=== PATIENT | female | born 1965 | race American Indian/Alaskan Native ===

== ENCOUNTER 2016-07-14 11:38 | Emergency (ER) | payer OTHER ==
[2016-07-14] MEDS ORDERED: Sodium Chloride 0.9% 1,000 ML IV STA (11:56)
[2016-07-14] MEDS ORDERED: oxyCODONE 30 mg Immediate Release Tab PO STA (11:56)
[2016-07-14] MEDS ORDERED: HYDROmorphone 1 mg/ml ISec IVP STA (11:56)
[2016-07-14] MEDS ORDERED: Levalbuterol 1.25 MG/3 ML Inhal Soln UD IH STA (11:57)
[2016-07-14] MEDS ORDERED: guaiFENesin 200 mg/10 ml Syrup UD PO STA (11:57)
[2016-07-14] MEDS ORDERED: Ipratropium 0.02% Inhal Soln (0.5 mg/2.5 ml) UD IH STA (11:57)
[2016-07-14 12:04] VITALS: TEMP 98.9
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
[2016-07-14 12:17] LABS: ADD MANUAL DIFF? NO
[2016-07-14 12:22] LABS: BASO # 0.02 K/mm3 (0.0-2.0); BASO % 0.6 % (0.0-3.0); EOS # 0.1 (0.0-0.7); EOS % 2.9 % (1.5-5.0); GRAN # 1.61 (1.4-6.5); GRAN % 52.2 % (50.0-68.0); HEMATOCRIT 44.3 % (36.0-48.0); LYMPH # 1.1 (1.2-3.4); LYMPH % 34.3 % (22.0-35.0); MEAN CORPUSCULAR HEMOGLOBIN 30.5 pg (25.0-35.0); MEAN CORPUSCULAR HGB CONC 33.9 g/dl (31.0-37.0); MEAN PLATELET VOLUME 9.2 fl (7.0-11.0); MONO # 0.3 (0.1-0.6); PLATELET COUNT 241 10^3/uL (120.0-450.0); WHITE BLOOD COUNT 3.1 10^3/ul (4.5-11.0)
[2016-07-14 12:34] LABS: INR 2.1 (0.93-1.08); PARTIAL THROMBOPLASTIN TIME 35.9 Seconds (23.7-30.8)
[2016-07-14 12:39] LABS: ALB/GLOB RATIO 1.2 (1.1-1.8); ALKALINE PHOSPHATASE 68 U/L (38-133); ALT/SGPT 26 U/L (7-56); AST/SGOT 31 U/L (15-39); BILIRUBIN,TOTAL 0.4 mg/dL (0.2-1.3); BLOOD UREA NITROGEN 10 mg/dL (7-21); CALCIUM 9.3 mg/dL (8.4-10.5); CARBON DIOXIDE 32 mmol/L (21-33); CHLORIDE 104 mmol/L (98-107); GFR AFRICAN-AMERICAN > 60; GLUCOSE,RANDOM 81 mg/dL (70-110); LIPASE 52 U/L (23-300); POTASSIUM 4.6 mmol/L (3.6-5.0); SODIUM 144 mmol/L (132-148); TOTAL PROTEIN 7.3 g/dL (5.8-8.3)
[2016-07-14 12:43] LABS: URINE APPEARANCE CLEAR (CLEAR); URINE BILIRUBIN NEGATIVE (NEGATIVE); URINE BLOOD SMALL (NEGATIVE); URINE COLOR YELLOW (YELLOW); URINE GLUCOSE (UA) NEGATIVE (NEGATIVE); URINE KETONE NEGATIVE (NEGATIVE); URINE LEUKOCYTE ESTERASE NEGATIVE Leu/uL (NEGATIVE); URINE PROTEIN NEGATIVE mg/dL (<30 mg/dL); URINE UROBILINOGEN 0.2 E.U./dL (<1 E.U./dL)
[2016-07-14] MEDS ORDERED: DiphenhydrAMINE 50 mg/ml Inj IVP STA (12:49)
[2016-07-14 12:54] LABS: TROPONIN I < 0.01 ng/mL
[2016-07-14 13:04] LABS: URINE BACTERIA TRACE (NEG); URINE EPITHELIAL CELLS 0 - 2 /hpf (0-5); URINE WBC 0 - 2 /hpf (0-6)
[2016-07-14 13:50] VITALS: BMI 22.1
--- NOTE | 2016-07-14 14:22 | RAD ---
PROCEDURE: CHEST RADIOGRAPH, 1 VIEW HISTORY: R side chest pain COMPARISON: 05/18/2016 FINDINGS: LUNGS: No infiltrate. Linear pleural-based scar with tenting of the right hemidiaphragm unchanged from prior examination. PLEURA: No pneumothorax or pleural fluid seen. CARDIOVASCULAR: Left subclavian central venous port. Normal heart size. OSSEOUS STRUCTURES: No significant abnormalities. VISUALIZED UPPER ABDOMEN: Normal. OTHER FINDINGS: None. IMPRESSION: No active disease.
--- NOTE | 2016-07-14 14:33 | CT ---
PROCEDURE: CT Chest with contrast (Pulmonary Angiogram) HISTORY: R side cp radiating to the back; r/o PE and dissection. COMPARISON: Comparison is made to the previous study dated 08/12/2015 TECHNIQUE: Axial computed tomography images were obtained of the chest in the pulmonary arterial phase of enhancement. Coronal and sagittal reformatted images were created and reviewed. Intravenous contrast dose: 150 mL of Omnipaque 350 Radiation dose: Total exam DLP = 1635.29 mGy-cm. FINDINGS: PULMONARY ARTERIES: The main pulmonary artery is mildly enlarged. . No pulmonary embolism. AORTA: No acute findings. No thoracic aortic aneurysm. LUNGS: Moderate to mildly severe predominant upper lobe paraseptal emphysema is again noted. No evidence of pneumonia or mass lesion in the lungs. Reticular opacities at the lung apices likely scar tissue PLEURAL SPACES: Unremarkable. No effusion or pneuomothorax. HEART: The heart is mildly enlarged. No evidence of pericardial effusion. LYMPH NODES: No lymphadenopathy. BONES, CHEST WALL: Unremarkable. No fracture or destructive lesion OTHER FINDINGS: Unremarkable. IMPRESSION: No evidence of acute pathology in the chest . No pulmonary embolus. Moderate to mildly severe emphysema and predominant in the upper lobes again seen. No evidence of aortic dissection in the chest. Mildly dilated distal esophagus demonstrate mild wall thickening. Correlate clinically for esophagitis. CT of the abdomen and pelvis with contrast. Clinical history: Right-sided chest pain radiating to the back evaluate for aortic dissection. Comparison is made to the previous study dated 08/12/2015. Findings: The abdominal aorta is normal in caliber and shape. No evidence of aneurysm or dissection. No evidence of mass lesion or acute pathology in the liver, spleen, pancreas and adrenal glands. No evidence of cholecystitis. The kidneys enhance symmetrically without evidence of hydronephrosis. No evidence of free fluid or free air or bowel obstruction. No evidence of significant lymphadenopathy in the abdomen and pelvis. The iliac arteries are normal in caliber. The urinary bladder is grossly unremarkable. The uterus is heterogeneous slightly prominent in size. No evidence of acute pathology in the osseous structures. Impression: No evidence of abdominal aortic aneurysm or dissection. No CT evidence of acute pathology in the abdomen and pelvis.
[2016-07-14 16:22] VITALS: BP 133/85; PULSE 72; RESP 16; O2SAT 98
--- NOTE | 2016-07-15 09:59 | CARD ---
APPROVED REPORT EKG Measurement Heart [id number] <Conclusion> Normal sinus rhythm Normal ECG No change
== END 2016-07-14 16:22 | disposition home or self-care (01) ==
LOC: ED 11:38
DX: F14.10 Cocaine abuse, uncomplicated (principal); R07.9 Chest pain, unspecified; G89.29 Other chronic pain
CPT/HCPCS: 71010; 71270; 74175; 80053; 80324; 80345; 80346; 80349; 80353; 80358; 80361; 81001; 82550; 83615; 83690; 83735; 83880; 83992; 84484; 85025; 85610; 85730; 93005; 96361; 96374; 96375; 99284; J1170; J1200; J2060; J2405; J2930; J7040; Q9967

== ENCOUNTER 2016-07-22 16:48 | Emergency (ER) | payer OTHER ==
[2016-07-22 16:54] VITALS: BMI 33.0
[2016-07-22] MEDS ORDERED: DiphenhydrAMINE 50 mg/ml Inj IVP ONE ×2 (17:01→20:17)
[2016-07-22] MEDS ORDERED: HYDROmorphone 2 mg/ml ISec IVP STA (17:01)
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
[2016-07-22 17:04] VITALS: TEMP 98.2
[2016-07-22] MEDS ORDERED: Albuterol-Ipratrop 3 mg / 0.5 (3 ml) UD IH STA (17:04)
[2016-07-22 17:48] LABS: ADD MANUAL DIFF? NO
[2016-07-22 17:58] LABS: BASO # 0.03 [, K/mm3] (0.0-2.0); BASO % 0.9 % (0.0-3.0); EOS # 0.1 (0.0-0.7); EOS % 1.7 % (1.5-5.0); GRAN # 1.78 (1.4-6.5); GRAN % 50.9 % (50.0-68.0); HEMATOCRIT 41.2 % (36.0-48.0); LYMPH # 1.4 (1.2-3.4); LYMPH % 39.4 % (22.0-35.0); MEAN CELL VOLUME 89.4 fL (80.0-105.0); MEAN CORPUSCULAR HEMOGLOBIN 29.7 pg (25.0-35.0); MEAN CORPUSCULAR HGB CONC 33.3 g/dl (31.0-37.0); MEAN PLATELET VOLUME 9.5 fl (7.0-11.0); MONO # 0.3 (0.1-0.6); MONO % 7.1 % (1.0-6.0); PLATELET COUNT 210 [, 10^3/uL] (120.0-450.0); RED CELL DISTRIBUTION WIDTH 13.8 % (11.5-14.5); WHITE BLOOD COUNT 3.5 [, 10^3/ul] (4.5-11.0)
[2016-07-22 18:06] LABS: INR 1.97 (0.93-1.08)
[2016-07-22 18:09] LABS: ALB/GLOB RATIO 1.3 (1.1-1.8); ALKALINE PHOSPHATASE 74 U/L (38-133); ALT/SGPT 41 U/L (7-56); AST/SGOT 32 U/L (15-39); BILIRUBIN,TOTAL 0.6 mg/dL (0.2-1.3); BLOOD UREA NITROGEN 10 mg/dL (7-21); CALCIUM 8.9 mg/dL (8.4-10.5); CARBON DIOXIDE 27 mmol/L (21-33); CHLORIDE 103 mmol/L (98-107); GFR AFRICAN-AMERICAN > 60; GLUCOSE,RANDOM 98 mg/dL (70-110); POTASSIUM 3.6 mmol/L (3.6-5.0); SODIUM 140 mmol/L (132-148); TOTAL PROTEIN 6.8 g/dL (5.8-8.3)
[2016-07-22 18:21] LABS: TROPONIN I < 0.01 ng/mL
[2016-07-22] MEDS ORDERED: HYDROmorphone 1 mg/ml ISec IVP STA (19:55)
[2016-07-22 20:17] VITALS: PULSE 94
[2016-07-22 20:41] VITALS: BP 131/79; RESP 16; O2SAT 100
[2016-07-22 20:47] LABS: URINE BILIRUBIN NEGATIVE (NEGATIVE); URINE BLOOD TRACE-INTACT (NEGATIVE); URINE GLUCOSE (UA) NEGATIVE (NEGATIVE); URINE KETONE NEGATIVE (NEGATIVE); URINE LEUKOCYTE ESTERASE NEGATIVE Leu/uL (NEGATIVE); URINE PROTEIN NEGATIVE mg/dL (<30 mg/dL); URINE UROBILINOGEN 0.2 E.U./dL (<1 E.U./dL)
[2016-07-22 20:51] LABS: URINE APPEARANCE CLEAR (CLEAR); URINE COLOR YELLOW (YELLOW)
[2016-07-22 20:55] LABS: URINE BACTERIA FEW (NEG); URINE WBC 0 - 2 /hpf (0-6)
--- NOTE | 2016-07-23 09:12 | RAD ---
HISTORY: Shortness of breath COMPARISON: 07/14/2016. FINDINGS: The left MediPort terminates in the SVC. LUNGS: There is low lung volume on the right and chronic scarring in the right lower lobe with tenting of the right hemidiaphragm. The left lung is clear. PLEURA: No significant pleural effusion identified, no pneumothorax apparent. CARDIOVASCULAR: Normal. OSSEOUS STRUCTURES: No significant abnormalities. VISUALIZED UPPER ABDOMEN: Normal. OTHER FINDINGS: None. IMPRESSION: Chronic scarring in the right lower lobe and low lung volume on the right. Clear left lung.
--- NOTE | 2016-07-23 15:01 | CARD ---
APPROVED REPORT EKG Measurement Heart [id number] <Conclusion> Normal sinus rhythm Normal ECG
== END 2016-07-22 20:57 | disposition left against medical advice (07) ==
LOC: ED 16:48
DX: J44.1 Chronic obstructive pulmonary disease with (acute) exacerbation (principal); R07.9 Chest pain, unspecified; I10 Essential (primary) hypertension; Z85.118 Personal history of other malignant neoplasm of bronchus and lung; Z72.0 Tobacco use
CPT/HCPCS: 71010; 80053; 81001; 82550; 83615; 83880; 84484; 85025; 85610; 85730; 87040; 87086; 93005; 94640; 96374; 96375; 96376; 99285; J1170; J1200

== ENCOUNTER 2016-07-24 13:40 | Inpatient (IN) | payer OTHER ==
[2016-07-24] MEDS ORDERED: Morphine 4 mg/ml ISec IVP STA (13:47)
[2016-07-24] MEDS ORDERED: Albuterol-Ipratrop 3 mg / 0.5 (3 ml) UD ONE (13:47)
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
[2016-07-24 13:50] VITALS: BMI 33.1
[2016-07-24] MEDS: Albuterol-Ipratrop 3 mg / 0.5 (3 ml) UD IH SCH ×3 (14:00→20:00)
[2016-07-24 14:08] LABS: ADD MANUAL DIFF? NO
--- NOTE | 2016-07-24 14:25 | RAD ---
HISTORY: cough r/o pna COMPARISON: 07/22/2016 FINDINGS: The left subclavian line terminates in the SVC. LUNGS: The lungs are hyperinflated and there is peribronchial thickening with chronic changes in both lungs. Unchanged right lower lobe. There is no focal consolidation. PLEURA: No significant pleural effusion identified, no pneumothorax apparent. CARDIOVASCULAR: Normal. OSSEOUS STRUCTURES: No significant abnormalities. VISUALIZED UPPER ABDOMEN: Normal. OTHER FINDINGS: None. IMPRESSION: No active pulmonary disease. COPD.
[2016-07-24] MEDS ORDERED: Magnesium Sulfate 2 GM in Sodium Chloride 0.9% 100 ML IVPB ONE (14:26)
[2016-07-24 14:30] LABS: BASO # 0.01 K/mm3 (0.0-2.0); BASO % 0.2 % (0.0-3.0); EOS % 0.5 % (1.5-5.0); GRAN # 4.31 (1.4-6.5); GRAN % 68.6 % (50.0-68.0); HEMATOCRIT 41.3 % (36.0-48.0); LYMPH # 1.5 (1.2-3.4); LYMPH % 23.9 % (22.0-35.0); MEAN CELL VOLUME 89.8 fL (80.0-105.0); MEAN CORPUSCULAR HEMOGLOBIN 30.2 pg (25.0-35.0); MEAN CORPUSCULAR HGB CONC 33.7 g/dl (31.0-37.0); MEAN PLATELET VOLUME 9.5 fl (7.0-11.0); MONO # 0.4 (0.1-0.6); MONO % 6.8 % (1.0-6.0); PLATELET COUNT 242 10^3/uL (120.0-450.0); RED CELL DISTRIBUTION WIDTH 14.2 % (11.5-14.5); WHITE BLOOD COUNT 6.3 10^3/ul (4.5-11.0)
[2016-07-24 14:31] LABS: BLOOD UREA NITROGEN 14 mg/dL (7-21); CALCIUM 9.3 mg/dL (8.4-10.5); CARBON DIOXIDE 24 mmol/L (21-33); CHLORIDE 103 mmol/L (98-107); GFR AFRICAN-AMERICAN > 60; GLUCOSE,RANDOM 60 mg/dL (70-110); POTASSIUM 3.7 mmol/L (3.6-5.0); SODIUM 141 mmol/L (132-148)
[2016-07-24] MEDS ORDERED: HYDROmorphone 1 mg/ml ISec IVP STA (14:40)
[2016-07-24] MEDS ORDERED: Albuterol 0.083% Inhal Sol (2.5 mg/3 mL) UD IH STA (16:03)
[2016-07-24 16:37] LABS: INR 2.68 (0.93-1.08); PARTIAL THROMBOPLASTIN TIME 38.3 Seconds (23.7-30.8)
[2016-07-24] MEDS ORDERED: Albuterol-Ipratrop 3 mg / 0.5 (3 ml) UD IH PRN (16:54)
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
[2016-07-24] MEDS: HYDROmorphone 1 mg/ml ISec IVP PRN ×2 (17:45→21:26)
[2016-07-24] MEDS: Divalproex 250 mg ER (ONCE DAILY formulation) PO SCH (19:18)
[2016-07-24] MEDS: guaiFENesin 100 mg/5 ml Syrup UD PO PRN (19:20)
--- NOTE | 2016-07-24 22:45 | CP.PCM.PCO ---
Addendum Addendum: 07/24/16 22:28 Elian Shafer D.O. PGY-1, Internal Medicine Resident, Night Float Received page from Lauren VELASQUEZ at about 1010pm that patient was complaining of right arm pain, tingling, and numbness. Patient was seen and examined at bedside. Patient has a hx of lung cancer s/p right lobectomy done about 2 years and patient states that ever since then she has been having neuropathic pain over the skin of her right chest wall. Patient states that then about 2 months ago she started to notice that she also had some numbness and tingling of the right arm. Patient states the numbness/ tingling/pain is 10/10 at its worst, constant, varies at times, somewhat related to position but not always improved by changes, not worsened by anything that she's noticed, non-radiating, involves the entire arm and not a particular area/dermatome, and not associated with other symptoms. Patient admits that she has not had great follow up with radiation oncology or with hem/ onc about her now metastatic disease with known mediastinal adenopathy. Chart and images were reviewed by myself. Patient is a well developed, obese female, in some distress but improved after conversation, RRR, +S1/S2, no M/R/G, mild wheezing, decreased BL lower lung field breath sounds, NC, AT, abd S/NT/ND/+BSx4, the right chest wall shows post surgical well healed lobectomy scar, the skin is very tender to touch, the right arm is not but patient describes tingling and numbness along later, medical and posterior aspects, from shoulder down to fingers, negative Tinels, +2 RA pulses, +2 brachial pulses, good cap refill, good alternative dispute resolution mediator/BI/TRI/DELT strength, no focal motor deficits, no dysarthria, no dysmetria, no dysdiadochokinesia, or any other signs of a possible other neurologic or cardiac etiology. Of note, patient uses cocaine and has had formication in the past and the sensation she has now is different. Patient's condition was discussed with her at great length, and given her symptoms and their chronicity it is likely that she is suffering from neuropathic pain and would benefit from gabapentin. Patient states that she was on gabapentin for some time but only was up to "like 1000mg a day." I educated the patient on gabapentin, it's mechanism, and how it works for neuropathic pain , and how this is the likely source of her symptoms now, although we will also rule out other etiologies, and how these will be discussed with the day team for further evaluation. I also educated the patient about how she may just have needed higher doses in order for it to be efficacious for her. Patient verbalized both understanding of the above and agreement to start on gabapentin 300mg PO TID, with the first dose now, with the plan to work her up to the appropriate dose that will help with her pain. The above will be discussed with the day team.
[2016-07-25] MEDS: Albuterol-Ipratrop 3 mg / 0.5 (3 ml) UD IH SCH ×6 (00:20→20:19)
[2016-07-25] MEDS: HYDROmorphone 1 mg/ml ISec IVP PRN ×6 (01:47→23:48)
[2016-07-25] MEDS: guaiFENesin 100 mg/5 ml Syrup UD PO PRN ×4 (01:47→17:20)
[2016-07-25 07:12] LABS: ADD MANUAL DIFF? NO
[2016-07-25 07:16] LABS: GRAN # 8.03 (1.4-6.5); GRAN % 90.6 % (50.0-68.0); HEMATOCRIT 37.6 % (36.0-48.0); LYMPH # 0.6 (1.2-3.4); LYMPH % 6.5 % (22.0-35.0); MEAN CELL VOLUME 89.5 fL (80.0-105.0); MEAN CORPUSCULAR HGB CONC 33.5 g/dl (31.0-37.0); MEAN PLATELET VOLUME 9.4 fl (7.0-11.0); MONO # 0.3 (0.1-0.6); MONO % 2.9 % (1.0-6.0); PLATELET COUNT 248 10^3/uL (120.0-450.0); RED CELL DISTRIBUTION WIDTH 14.1 % (11.5-14.5); WHITE BLOOD COUNT 8.9 10^3/ul (4.5-11.0)
[2016-07-25 07:25] LABS: INR 2.56 (0.93-1.08)
[2016-07-25 08:27] LABS: ALB/GLOB RATIO 1.2 (1.1-1.8); ALKALINE PHOSPHATASE 58 U/L (38-133); ALT/SGPT 58 U/L (7-56); AST/SGOT 36 U/L (15-39); BILIRUBIN,TOTAL 0.4 mg/dL (0.2-1.3); BLOOD UREA NITROGEN 13 mg/dL (7-21); CALCIUM 9.1 mg/dL (8.4-10.5); CARBON DIOXIDE 27 mmol/L (21-33); CHLORIDE 103 mmol/L (95-110); GFR AFRICAN-AMERICAN > 60; GLUCOSE,RANDOM 140 mg/dL (70-110); POTASSIUM 4.6 mmol/L (3.6-5.0); SODIUM 139 mmol/L (132-148); TOTAL PROTEIN 6.9 g/dL (5.8-8.3)
[2016-07-25] MEDS: Divalproex 250 mg ER (ONCE DAILY formulation) PO SCH ×2 (09:26→17:22)
[2016-07-25] MEDS ORDERED: Iodixanol 320 MG/ML 100 ML BOTTLE IV ONE (12:54)
[2016-07-25] MEDS: cefTRIAXone 1 gm 100 ML IVPB SCH (13:41)
[2016-07-25] MEDS: Azithromycin 500MG/NS 250ml 250 ML IVPB SCH (13:41)
--- NOTE | 2016-07-25 15:10 | CT ---
PROCEDURE: CT Chest with contrast (Pulmonary Angiogram) HISTORY: r/o PE COMPARISON: None available. TECHNIQUE: Axial computed tomography images were obtained of the chest in the pulmonary arterial phase of enhancement. Coronal and sagittal reformatted images were created and reviewed. Intravenous contrast dose: 100 cc of Visipaque Radiation dose: Total exam DLP = 742 mGy-cm. FINDINGS: PULMONARY ARTERIES: Unremarkable. No pulmonary embolism. AORTA: No acute findings. No thoracic aortic aneurysm. LUNGS: Emphysematous changes are seen in the left upper lobe. No evidence of infiltrate PLEURAL SPACES: Unremarkable. No effusion or pneuomothorax. HEART: Unremarkable. No cardiomegaly. No significant pericardial effusion. LYMPH NODES: No lymphadenopathy. BONES, CHEST WALL: Unremarkable. No fracture or destructive lesion OTHER FINDINGS: Unremarkable. IMPRESSION: Unremarkable CT pulmonary angiogram. No pulmonary embolus.
--- NOTE | 2016-07-25 15:20 | CON ---
DATE: 07/25/2016 This is a 51-year-old lady with history of right lung squamous cell cancer s/p resection, chemo and XRT with subsequent recurrence, patient is on warfarin for pulmonary embolism and has a history of COPD, coronary artery disease, and neuropathic pain, for which she is on Neurontin and opiates PRN, who presented this time for evaluation of shortness of breath. The patient reports that she is also coughing and produces some thick greenish sputum. The episodes of these complaints were waxing and waning over the past few months. However, a few days ago, they became much worse and culminated in her admission to [facility] telemetry floor. The patient also reported occasional cocaine abuse. She is also taking oxycodone on as needed basis for neuropathic pain. The patient denies nausea, vomiting, diarrhea, constipation or any sick contacts. It appears that the patient was in the Emergency Room about 2 days ago where she signed out AMA in order to be on time for the appointment with her pain management physician. She is unable to provide the name of the pain physician, however, states that his office is in [facility]. PAST MEDICAL HISTORY: Right lung squamous cell CA, pulmonary embolism, COPD, coronary artery disease. PAST SURGICAL HISTORY: Right lobectomy, tubal ligation. FAMILY HISTORY: Noncontributory. SOCIAL HISTORY: The patient is an ex-tobacco abuser. She smoked about a 3 packs a day for many, many years. She is using nicotine patch at this point. She also occasional an active cocaine abuser. Social alcohol abuse. She lives at home with . ALLERGIES: PENICILLIN AND ASPIRIN. REVIEW OF SYSTEMS: Review of 12 organ systems, other than mentioned in history of present illness, is negative. PHYSICAL EXAMINATION: VITAL SIGNS: Temperature 98.7, heart rate 90, blood pressure 101/65, respiratory rate 19, oxygen saturation 99% on 3 liters nasal cannula. HEAD AND NECK: Atraumatic. LUNGS: Decreased breath sounds bilaterally. HEART: Regular rate and rhythm. S1, S2 distant. ABDOMEN: Soft, nontender, nondistended. MUSCULOSKELETAL: There is reproducible pain all over chest and upper shoulders , back. No C/C/E. NEUROLOGIC: The patient moves all extremities spontaneously. SKIN: Moist. PSYCHIATRIC: The patient is alert and oriented x 3, in mild distress due to neuropathic pain. This pain is not new and patient has been suffering from it for many months now. LABORATORIES: WBC 8.9, hemoglobin 12.6, platelet count 248. Sodium 139, potassium 4.6, chloride 103, carbon dioxide 27, BUN 13, creatinine 0.8 down from 1, glucose 140. Troponin less than 0.01. Albumin 3.8. INR 2.56. U-tox screen positive for opiates and cocaine. EKG showed normal sinus rhythm without any specific ischemic changes. Chest x- ray showed no active pulmonary disease from emphysema, consistent with diagnosis of COPD. ASSESSMENT AND PLAN: This is a 51-year-old lady who presented with increased shortness of breath and cough, most likely secondary to chronic obstructive pulmonary disease exacerbation. The patient will be on antibiotics, inhaled corticosteroids, and anticholinergic inhalers. I will proceed with septic workup including blood and urine culture, procalcitonin. I will continue Neurontin for pain medication. The patient may benefit from pain MD hipolito. I would continue to target euvolemia, euglycemia, normothermia and oxygen saturation more than 90%. We will continue with deep venous thrombosis and gastrointestinal prophylaxis. Ld Henriquez MD cc: [id number] TT: 07/25/2016 15:18:58 Confirmation # [id number] Dictation # [id number] en MTDD
--- NOTE | 2016-07-25 15:45 | CARD ---
APPROVED REPORT EKG Measurement Heart [id number] VT [id number] <Conclusion> Normal sinus rhythm Normal ECG
--- NOTE | 2016-07-25 15:46 | CP.PCM.PN ---
<Aryan Perez - Last Filed: 07/25/16 15:55> Subjective - Date & Time of Evaluation Date of Evaluation: 07/25/16 Time of Evaluation: 07:30 - Subjective Subjective: Dr. Perez PGY 1 Hospital Note Patient seen and evaluated at bedside. She states that she continues to have SOB and a non-productive cough. She notes some musclular pain when she coughs. She denies any fever, chills, nausea, vomiting, diarrhea, or constipation. She complains of chronic back pain for which she sees a pain specialist. Objective - Vital Signs/Intake and Output Vital Signs (last 24 hours): Temp Pulse Resp BP Pulse Ox 98.7 F 90 19 101/65 99 07/25/16 12:00 07/25/16 12:00 07/25/16 12:00 07/25/16 12:00 07/25/16 05:29 Intake and Output: 07/25/16 07/25/16 06:59 18:59 Intake Total 1080 Output Total 1 Balance 1079 - Medications Medications: Current Medications Albuterol/Ipratropium (Duoneb 3 Mg/0.5 Mg (3 Ml) Ud) 3 ml IH Q2H PRN PRN Reason: Shortness of Breath Albuterol/Ipratropium (Duoneb 3 Mg/0.5 Mg (3 Ml) Ud) 3 ml IH [id number] [facility] Last Admin: 07/25/16 11:29 Dose: 3 ml Benzonatate (Tessalon Perles) 100 mg PO TID [facility] Last Admin: 07/25/16 13:40 Dose: 100 mg Divalproex Sodium (Depakote Er(Once Daily)) 250 mg PO BID [facility] PRN Reason: Protocol Last Admin: 07/25/16 09:26 Dose: 250 mg Gabapentin (Neurontin) 300 mg PO TID [facility] PRN Reason: Protocol Last Admin: 07/25/16 13:40 Dose: 300 mg Guaifenesin (Robitussin) 100 mg PO Q4H PRN PRN Reason: Cough Last Admin: 07/25/16 09:26 Dose: 100 mg Hydromorphone HCl (Dilaudid) 1 mg IVP Q4H PRN PRN Reason: Pain, severe (8-10) Last Admin: 07/25/16 13:48 Dose: 1 mg Azithromycin (Zithromax 500mg In Ns) 250 mls @ 167 mls/hr IVPB DAILY [facility] PRN Reason: Protocol Last Admin: 07/25/16 13:41 Dose: 167 mls/hr Ceftriaxone Sodium (Rocephin 1 Gram Ivpb) 100 mls @ 100 mls/hr IVPB DAILY [facility] PRN Reason: Protocol Last Admin: 07/25/16 13:41 Dose: 100 mls/hr Methylprednisolone (Solu-Medrol) 60 mg IVP Q12 [facility] Last Admin: 07/25/16 09:26 Dose: 60 mg Nicotine (Nicoderm Cq) 1 patch TD DAILY [facility] Last Admin: 07/25/16 09:26 Dose: 1 patch Ondansetron HCl (Zofran Inj) 4 mg IVP Q4H PRN PRN Reason: Nausea/Vomiting Pantoprazole Sodium (Protonix Inj) 40 mg IVP DAILY [facility] Last Admin: 07/25/16 09:27 Dose: 40 mg Risperidone 2 mg/ Risperidone (0.5 mg) 2.5 mg PO BID [facility] Warfarin Sodium (Coumadin) 10 mg PO 1800 [facility] PRN Reason: Protocol - Labs Labs: 07/25/16 06:45 07/25/16 06:45 PT 27.6 Seconds (9.9-11.8) H 07/25/16 06:45 INR 2.56 (0.93-1.08) H 07/25/16 06:45 APTT 38.3 Seconds (23.7-30.8) H 07/24/16 13:45 - Constitutional Appears: Non-toxic, No Acute Distress, Other (continually coughs while speaking) - Head Exam Head Exam: ATRAUMATIC, NORMOCEPHALIC - Eye Exam Eye Exam: EOMI, Normal appearance, PERRL Pupil Exam: NORMAL ACCOMODATION, PERRL - ENT Exam ENT Exam: Mucous Membranes Moist - Respiratory Exam Respiratory Exam: Wheezes (bilaterally), NORMAL BREATHING PATTERN. absent: Rales, Rhonchi Additional comments: non-productive cough while being interviewed - Cardiovascular Exam Cardiovascular Exam: REGULAR RHYTHM, +S1, +S2. absent: Gallop, Rubs, Murmur - GI/Abdominal Exam GI & Abdominal Exam: Soft, Normal Bowel Sounds. absent: Tenderness - Extremities Exam Extremities Exam: Normal Inspection. absent: Pedal Edema, Tenderness - Back Exam Back Exam: NORMAL INSPECTION. absent: rash noted, tenderness - Neurological Exam Neurological Exam: Alert, Awake, CN II-XII Intact, Oriented x3 - Psychiatric Exam Psychiatric exam: Normal Affect, Normal Mood - Skin Skin Exam: Dry, Intact, Normal Color, Warm Assessment and Plan - Assessment and Plan (Free Text) Assessment: 50yo F with PMHx including Right Lung CA - Squamous cell s/p right Lobectomy with recurrence on radiation, Hx of PE on Warfarin, COPD, Angina, Chronic pain on high dose opiates, drug abuse here for Shortness of breath and non- productive cough. Plan: 1. Dyspnea * In the setting of recent cocaine use * Hx of Squamous cell Lung cancer s/p right lobectomy with recurrence * likely COPD exacerbation * Pulmonology consulted, help appreciated * CXR - no acute disease * Troponin negative * CTA ordered showed emphysematous changes, no evidence of PE. * Continue Duonebs, Solumedrol 60mg q12, Robitussin * Started Zithromax and Rocephin * Started Tessolon perls * Supplemental O2 as needed 2. Hx of PE * Continue Coumadin * INR therapeutic at 2.56 * Daily INR checks 3. Chronic Back pain * Pain control with dilaudid * high dose oxycodone use at home: Oxycodone 30mg PO q4h prn * Started Gabapentin 4. Substance abuse * UA positive for cocaine and opiates * Reported last cocaine use 1 week ago * counseled on cessation 5. PPx * SCDs * Protonix * Zofran Assessment and plan discussed with attending physician. <Tammy Grey - Last Filed: 07/26/16 08:57> Objective - Vital Signs/Intake and Output Vital Signs (last 24 hours): Temp Pulse Resp BP Pulse Ox 97.6 F 79 18 154/94 H 98 07/26/16 00:01 07/26/16 06:00 07/26/16 00:01 07/26/16 00:01 07/26/16 00:01 Intake and Output: 07/26/16 07/26/16 06:59 18:59 Intake Total 900 Output Total 2100 Balance -1200 - Medications Medications: Current Medications Albuterol/Ipratropium (Duoneb 3 Mg/0.5 Mg (3 Ml) Ud) 3 ml IH Q2H PRN PRN Reason: Shortness of Breath Albuterol/Ipratropium (Duoneb 3 Mg/0.5 Mg (3 Ml) Ud) 3 ml IH [id number] [facility] Last Admin: 07/26/16 07:51 Dose: 3 ml Benzocaine/Menthol (Cepacol Sore Throat) 1 mica MT Q2H PRN PRN Reason: Sore Throat Benzonatate (Tessalon Perles) 100 mg PO TID [facility] Last Admin: 07/25/16 17:20 Dose: Not Given Divalproex Sodium (Depakote Er(Once Daily)) 250 mg PO BID [facility] PRN Reason: Protocol Last Admin: 07/25/16 17:22 Dose: 250 mg Gabapentin (Neurontin) 300 mg PO TID [facility] PRN Reason: Protocol Last Admin: 07/25/16 17:19 Dose: 300 mg Guaifenesin (Robitussin) 100 mg PO Q4H PRN PRN Reason: Cough Last Admin: 07/25/16 17:20 Dose: 100 mg Hydromorphone HCl (Dilaudid) 1 mg IVP Q4H PRN PRN Reason: Pain, severe (8-10) Last Admin: 07/26/16 05:16 Dose: 1 mg Azithromycin (Zithromax 500mg In Ns) 250 mls @ 167 mls/hr IVPB DAILY [facility] PRN Reason: Protocol Last Admin: 07/25/16 13:41 Dose: 167 mls/hr Ceftriaxone Sodium (Rocephin 1 Gram Ivpb) 100 mls @ 100 mls/hr IVPB DAILY [facility] PRN Reason: Protocol Last Admin: 07/25/16 13:41 Dose: 100 mls/hr Methylprednisolone (Solu-Medrol) 60 mg IVP Q12 [facility] Last Admin: 07/25/16 21:15 Dose: 60 mg Nicotine (Nicoderm Cq) 1 patch TD DAILY [facility] Last Admin: 07/25/16 09:26 Dose: 1 patch Ondansetron HCl (Zofran Inj) 4 mg IVP Q4H PRN PRN Reason: Nausea/Vomiting Pantoprazole Sodium (Protonix Ec Tab) 40 mg PO ACB [facility] Risperidone 2 mg/ Risperidone (0.5 mg) 2.5 mg PO BID [facility] Last Admin: 07/25/16 17:19 Dose: 2.5 mg Warfarin Sodium (Coumadin) 10 mg PO 1800 [facility] PRN Reason: Protocol Last Admin: 07/25/16 17:16 Dose: 10 mg - Labs Labs: 07/26/16 06:45 07/26/16 06:45 PT 27.6 Seconds (9.9-11.8) H 07/25/16 06:45 INR 2.56 (0.93-1.08) H 07/25/16 06:45 APTT 38.3 Seconds (23.7-30.8) H 07/24/16 13:45 Attending/Attestation - Attestation I have personally seen and examined this patient.: Yes I have fully participated in the care of the patient.: Yes I have reviewed all pertinent clinical information, including history, physical exam and plan: Yes Notes (Text): I have seen and examined the patient with the resident. This is 51 year old female with history of right sided lung cancer (SCC s/p right lobectomy with recurrence on RT), PE on coumadin, COPD,a ngina, chronic pain syndrome on high dose of opioids, polysubstance abuse (marijuana, cocaine) who got admitted for evaluation of COPD exacerbation. Will continue solumedrol, duonebs and add rocephin, zithro, tessalon perles and singulair. Will obtain pulm consult as well. CT chest is pending at this time. She has neuropathy so will continue gabapentin. Dr Tammy Grey
[2016-07-25] MEDS ORDERED: HYDROmorphone 0.5 mg/0.5 ml ISec IVP STA (20:40)
[2016-07-25] MEDS ORDERED: HYDROmorphone 1 mg/ml ISec IVP STA (20:55)
[2016-07-26] MEDS: Albuterol-Ipratrop 3 mg / 0.5 (3 ml) UD IH SCH ×6 (00:24→20:30)
[2016-07-26] MEDS: HYDROmorphone 1 mg/ml ISec IVP PRN ×4 (05:16→17:55)
[2016-07-26 06:55] LABS: ADD MANUAL DIFF? NO
[2016-07-26 07:13] LABS: GRAN # 8.38 (1.4-6.5); GRAN % 86.6 % (50.0-68.0); HEMATOCRIT 37.4 % (36.0-48.0); LYMPH # 0.7 (1.2-3.4); LYMPH % 7.6 % (22.0-35.0); MEAN CELL VOLUME 89.9 fL (80.0-105.0); MEAN CORPUSCULAR HEMOGLOBIN 29.8 pg (25.0-35.0); MEAN CORPUSCULAR HGB CONC 33.2 g/dl (31.0-37.0); MEAN PLATELET VOLUME 9.6 fl (7.0-11.0); MONO # 0.6 (0.1-0.6); MONO % 5.8 % (1.0-6.0); PLATELET COUNT 246 10^3/uL (120.0-450.0); WHITE BLOOD COUNT 9.7 10^3/ul (4.5-11.0)
[2016-07-26 07:16] LABS: ALB/GLOB RATIO 1.2 (1.1-1.8); ALKALINE PHOSPHATASE 56 U/L (38-133); ALT/SGPT 48 U/L (7-56); AST/SGOT 29 U/L (15-39); BILIRUBIN,TOTAL 0.5 mg/dL (0.2-1.3); BLOOD UREA NITROGEN 14 mg/dL (7-21); CALCIUM 9.3 mg/dL (8.4-10.5); CARBON DIOXIDE 31 mmol/L (21-33); CHLORIDE 101 mmol/L (98-107); GFR AFRICAN-AMERICAN > 60; GLUCOSE,RANDOM 112 mg/dL (70-110); POTASSIUM 4.2 mmol/L (3.6-5.0); SODIUM 140 mmol/L (132-148); TOTAL PROTEIN 6.5 g/dL (5.8-8.3)
[2016-07-26] MEDS: Pantoprazole 40 mg EC Tab PO SCH (09:44)
[2016-07-26] MEDS: cefTRIAXone 1 gm 100 ML IVPB SCH (09:44)
[2016-07-26 10:28] LABS: INR 1.88 (0.93-1.08)
[2016-07-26] MEDS: Divalproex 250 mg ER (ONCE DAILY formulation) PO SCH ×2 (10:53→19:05)
[2016-07-26] MEDS: Azithromycin 500MG/NS 250ml 250 ML IVPB SCH (10:54)
[2016-07-26] MEDS: guaiFENesin 100 mg/5 ml Syrup UD PO PRN ×3 (10:55→17:53)
[2016-07-26] MEDS: Benzocaine/Menthol (Cepacol) Lozenge MT PRN (13:50)
--- NOTE | 2016-07-26 14:10 | CP.PCM.PN ---
Subjective - Date & Time of Evaluation Date of Evaluation: 07/26/16 Time of Evaluation: 14:00 - Subjective Subjective: No acute events overnight Continues to have some coughing without productive sputum On nebulizers and steroids Objective - Vital Signs/Intake and Output Vital Signs (last 24 hours): Temp Pulse Resp BP Pulse Ox 99.7 F H 85 17 136/75 100 07/26/16 06:00 07/26/16 06:00 07/26/16 06:00 07/26/16 06:00 07/26/16 06:00 Intake and Output: 07/26/16 07/26/16 06:59 18:59 Intake Total 900 Output Total 2100 Balance -1200 - Medications Medications: Current Medications Albuterol/Ipratropium (Duoneb 3 Mg/0.5 Mg (3 Ml) Ud) 3 ml IH Q2H PRN PRN Reason: Shortness of Breath Albuterol/Ipratropium (Duoneb 3 Mg/0.5 Mg (3 Ml) Ud) 3 ml IH [id number] [facility] Last Admin: 07/26/16 11:26 Dose: 3 ml Benzocaine/Menthol (Cepacol Sore Throat) 1 mica MT Q2H PRN PRN Reason: Sore Throat Last Admin: 07/26/16 13:50 Dose: 1 mica Benzonatate (Tessalon Perles) 100 mg PO TID [facility] Last Admin: 07/26/16 13:49 Dose: 100 mg Divalproex Sodium (Depakote Er(Once Daily)) 250 mg PO BID [facility] PRN Reason: Protocol Last Admin: 07/26/16 10:53 Dose: 250 mg Gabapentin (Neurontin) 300 mg PO TID [facility] PRN Reason: Protocol Last Admin: 07/26/16 13:49 Dose: 300 mg Guaifenesin (Robitussin) 100 mg PO Q4H PRN PRN Reason: Cough Last Admin: 07/26/16 13:48 Dose: 100 mg Hydromorphone HCl (Dilaudid) 1 mg IVP Q4H PRN PRN Reason: Pain, severe (8-10) Last Admin: 07/26/16 13:49 Dose: 1 mg Azithromycin (Zithromax 500mg In Ns) 250 mls @ 167 mls/hr IVPB DAILY [facility] PRN Reason: Protocol Last Admin: 07/26/16 10:54 Dose: 167 mls/hr Ceftriaxone Sodium (Rocephin 1 Gram Ivpb) 100 mls @ 100 mls/hr IVPB DAILY [facility] PRN Reason: Protocol Last Admin: 07/26/16 09:44 Dose: 100 mls/hr Methylprednisolone (Solu-Medrol) 40 mg IVP Q12 [facility] Nicotine (Nicoderm Cq) 1 patch TD DAILY [facility] Last Admin: 07/26/16 09:52 Dose: 1 patch Ondansetron HCl (Zofran Inj) 4 mg IVP Q4H PRN PRN Reason: Nausea/Vomiting Pantoprazole Sodium (Protonix Ec Tab) 40 mg PO ACB [facility] Last Admin: 07/26/16 09:44 Dose: 40 mg Risperidone 2 mg/ Risperidone (0.5 mg) 2.5 mg PO BID [facility] Last Admin: 07/26/16 10:54 Dose: 2.5 mg Warfarin Sodium (Coumadin) 10 mg PO 1800 [facility] PRN Reason: Protocol Last Admin: 07/25/16 17:16 Dose: 10 mg - Labs Labs: 07/26/16 06:45 07/26/16 06:45 PT 20.3 Seconds (9.9-11.8) H 07/26/16 10:08 INR 1.88 (0.93-1.08) H 07/26/16 10:08 APTT 38.3 Seconds (23.7-30.8) H 07/24/16 13:45 - Constitutional Appears: No Acute Distress - Head Exam Head Exam: ATRAUMATIC, NORMAL INSPECTION - Eye Exam Eye Exam: EOMI, Normal appearance - ENT Exam ENT Exam: Mucous Membranes Moist - Neck Exam Neck Exam: Full ROM, Normal Inspection - Respiratory Exam Respiratory Exam: Decreased Breath Sounds (Decreased breath sounds at bases ), Clear to Ausculation Bilateral - Cardiovascular Exam Cardiovascular Exam: REGULAR RHYTHM - GI/Abdominal Exam GI & Abdominal Exam: Normal Bowel Sounds - Exam Exam: NORMAL INSPECTION - Extremities Exam Extremities Exam: Full ROM - Back Exam Back Exam: NORMAL INSPECTION - Neurological Exam Neurological Exam: Alert, CN II-XII Intact Assessment and Plan - Assessment and Plan (Free Text) Assessment: 51 y/o F / w/ 60 pk year smoking hx w/ acute COPD exacerbation . secondary to cocaine . Continue empiric abx treatment F/u sputum cx if any COntinue inhalers, ICS, BD and steroids PT/OT PFT needed in 2-3 weeks may need 6 min walk test before d/c
--- NOTE | 2016-07-26 15:30 | CP.PCM.PN ---
<Aryan Perez - Last Filed: 07/26/16 15:24> Subjective - Date & Time of Evaluation Date of Evaluation: 07/26/16 Time of Evaluation: 07:30 - Subjective Subjective: Dr. Perez PGY 1 Hospitalist Note Patient seen and evaluated at bedside. She was resting comfortably in bed. She continues to complain of mild SOB and non-productive cough. She denies any hemoptysis but has mild chest pain along the ribs and back which is worse with cough. She states the tingling in her arm has not fully diminished since starting Gabapentin yesterday. She states she will never use cocaine again and will refrain from smoking as was made aware that it worsens COPD. A 12 point review of systems was performed and negative except where indicated above. Objective - Vital Signs/Intake and Output Vital Signs (last 24 hours): Temp Pulse Resp BP Pulse Ox 98.5 F 98 H 17 136/75 100 07/26/16 12:00 07/26/16 10:00 07/26/16 06:00 07/26/16 06:00 07/26/16 06:00 Intake and Output: 07/26/16 07/26/16 06:59 18:59 Intake Total 900 920 Output Total 2100 Balance -1200 920 - Medications Medications: Current Medications Albuterol/Ipratropium (Duoneb 3 Mg/0.5 Mg (3 Ml) Ud) 3 ml IH Q2H PRN PRN Reason: Shortness of Breath Albuterol/Ipratropium (Duoneb 3 Mg/0.5 Mg (3 Ml) Ud) 3 ml IH [id number] [facility] Last Admin: 07/26/16 11:26 Dose: 3 ml Benzocaine/Menthol (Cepacol Sore Throat) 1 mica MT Q2H PRN PRN Reason: Sore Throat Last Admin: 07/26/16 13:50 Dose: 1 mica Benzonatate (Tessalon Perles) 100 mg PO TID [facility] Last Admin: 07/26/16 13:49 Dose: 100 mg Divalproex Sodium (Depakote Er(Once Daily)) 250 mg PO BID [facility] PRN Reason: Protocol Last Admin: 07/26/16 10:53 Dose: 250 mg Gabapentin (Neurontin) 300 mg PO TID [facility] PRN Reason: Protocol Last Admin: 07/26/16 13:49 Dose: 300 mg Guaifenesin (Robitussin) 100 mg PO Q4H PRN PRN Reason: Cough Last Admin: 07/26/16 13:48 Dose: 100 mg Hydromorphone HCl (Dilaudid) 1 mg IVP Q4H PRN PRN Reason: Pain, severe (8-10) Last Admin: 07/26/16 13:49 Dose: 1 mg Azithromycin (Zithromax 500mg In Ns) 250 mls @ 167 mls/hr IVPB DAILY [facility] PRN Reason: Protocol Last Admin: 07/26/16 10:54 Dose: 167 mls/hr Ceftriaxone Sodium (Rocephin 1 Gram Ivpb) 100 mls @ 100 mls/hr IVPB DAILY [facility] PRN Reason: Protocol Last Admin: 07/26/16 09:44 Dose: 100 mls/hr Methylprednisolone (Solu-Medrol) 40 mg IVP Q12 [facility] Nicotine (Nicoderm Cq) 1 patch TD DAILY [facility] Last Admin: 07/26/16 09:52 Dose: 1 patch Ondansetron HCl (Zofran Inj) 4 mg IVP Q4H PRN PRN Reason: Nausea/Vomiting Pantoprazole Sodium (Protonix Ec Tab) 40 mg PO ACB [facility] Last Admin: 07/26/16 09:44 Dose: 40 mg Risperidone 2 mg/ Risperidone (0.5 mg) 2.5 mg PO BID [facility] Last Admin: 07/26/16 10:54 Dose: 2.5 mg Warfarin Sodium (Coumadin) 10 mg PO 1800 [facility] PRN Reason: Protocol Last Admin: 07/25/16 17:16 Dose: 10 mg - Labs Labs: 07/26/16 06:45 07/26/16 06:45 PT 20.3 Seconds (9.9-11.8) H 07/26/16 10:08 INR 1.88 (0.93-1.08) H 07/26/16 10:08 APTT 38.3 Seconds (23.7-30.8) H 07/24/16 13:45 - Constitutional Appears: Non-toxic, No Acute Distress - Head Exam Head Exam: ATRAUMATIC, NORMOCEPHALIC - Eye Exam Eye Exam: EOMI, Normal appearance, PERRL Pupil Exam: NORMAL ACCOMODATION, PERRL - ENT Exam ENT Exam: Mucous Membranes Moist - Respiratory Exam Respiratory Exam: Wheezes (bilaterally), NORMAL BREATHING PATTERN Additional comments: multiple coughing episodes without sputum production - Cardiovascular Exam Cardiovascular Exam: REGULAR RHYTHM, +S1, +S2. absent: Gallop, Rubs, Murmur - GI/Abdominal Exam GI & Abdominal Exam: Soft, Normal Bowel Sounds. absent: Tenderness - Extremities Exam Extremities Exam: Normal Capillary Refill, Normal Inspection. absent: Pedal Edema, Tenderness - Back Exam Back Exam: tenderness (along T10-L1) - Neurological Exam Neurological Exam: Alert, Awake, CN II-XII Intact, Oriented x3 - Psychiatric Exam Psychiatric exam: Normal Affect, Normal Mood - Skin Skin Exam: Dry, Intact, Warm Assessment and Plan - Assessment and Plan (Free Text) Assessment: 50yo F with PMHx including Right Lung CA - Squamous cell s/p right Lobectomy with recurrence on radiation, Hx of PE on Warfarin, COPD, Angina, Chronic pain on high dose opiates, drug abuse here for Shortness of breath and non- productive cough. Plan: 1. Dyspnea * Pulmonology consulted, help appreciated * Hx of Squamous cell Lung cancer s/p right lobectomy with recurrence * likely COPD exacerbation due to recent cocaine use * CXR - no acute disease * Troponin negative x3 * CTA ordered showed emphysematous changes, no evidence of PE [see full report]. * Continue Duoneb treatments * Decreased Solumedrol to 40mg q12 H, * Continue Robitussin and tesselon perls * Cepacol drops Prn * continue Zithromax and Rocephin * Supplemental O2 as needed 2. Hx of PE * Continue Coumadin * INR 1.88 * Daily INR checks * No evidence of PE on CTA 3. Chronic Back pain * Pain control with dilaudid * high dose oxycodone use at home: Oxycodone 30mg PO q4h prn * Pain specialist consulted, help appreciated 4. Neuropathy * continue Gabapentin 5. Substance abuse * UA positive for cocaine and opiates * Reported last cocaine use 1 week ago * counseled on cessation 6. PPx * SCDs * Protonix * Zofran Assessment and plan discussed with attending physician. <Tammy Grey - Last Filed: 07/28/16 16:03> Objective - Vital Signs/Intake and Output Vital Signs (last 24 hours): Temp Pulse Resp BP Pulse Ox 98.0 F 75 17 111/60 98 07/27/16 06:00 07/27/16 06:00 07/27/16 06:00 07/27/16 06:00 07/27/16 06:00 - Labs Labs: 07/27/16 06:00 07/27/16 06:00 PT 19.9 Seconds (9.9-11.8) H 07/27/16 06:00 INR 1.84 (0.93-1.08) H 07/27/16 06:00 APTT 38.3 Seconds (23.7-30.8) H 07/24/16 13:45 Attending/Attestation - Attestation I have personally seen and examined this patient.: Yes I have fully participated in the care of the patient.: Yes I have reviewed all pertinent clinical information, including history, physical exam and plan: Yes Notes (Text): I have seen and examined the patient with the resident. This is 51 year old female with history of right sided lung cancer (SCC s/p right lobectomy with recurrence on RT), PE on coumadin, COPD, angina, chronic pain syndrome on high dose of opioids, polysubstance abuse (marijuana, cocaine) who got admitted for evaluation of COPD exacerbation. Will taper solumedrol, duonebs and add rocephin , zithro, tessalon perles and singulair. Pulm consult appreciated. CT chest is unremarkable. 6 minute walk test recommended by slitter scorer which will be done today. She has neuropathy so will continue gabapentin. Dr Tammy Grey
[2016-07-26] MEDS: MethylPREDNISolone 40 mg Vial IVP SCH (22:09)
[2016-07-26 23:53] VITALS: RESP 17
[2016-07-27] MEDS: Albuterol-Ipratrop 3 mg / 0.5 (3 ml) UD IH SCH ×3 (00:05→07:55)
[2016-07-27] MEDS: HYDROmorphone 1 mg/ml ISec IVP PRN ×4 (00:12→14:17)
[2016-07-27 06:32] LABS: ADD MANUAL DIFF? NO
[2016-07-27 06:42] LABS: GRAN # 7.42 (1.4-6.5); GRAN % 90.9 % (50.0-68.0); HEMATOCRIT 38.4 % (36.0-48.0); LYMPH # 0.5 (1.2-3.4); LYMPH % 6.2 % (22.0-35.0); MEAN CELL VOLUME 89.9 fL (80.0-105.0); MEAN CORPUSCULAR HEMOGLOBIN 30.2 pg (25.0-35.0); MEAN CORPUSCULAR HGB CONC 33.6 g/dl (31.0-37.0); MEAN PLATELET VOLUME 9.7 fl (7.0-11.0); MONO # 0.2 (0.1-0.6); MONO % 2.9 % (1.0-6.0); PLATELET COUNT 255 10^3/uL (120.0-450.0); RED CELL DISTRIBUTION WIDTH 14.1 % (11.5-14.5); WHITE BLOOD COUNT 8.2 10^3/ul (4.5-11.0)
[2016-07-27 07:00] LABS: ALB/GLOB RATIO 1.2 (1.1-1.8); ALKALINE PHOSPHATASE 59 U/L (38-133); ALT/SGPT 40 U/L (7-56); AST/SGOT 21 U/L (15-39); BILIRUBIN,TOTAL 0.4 mg/dL (0.2-1.3); BLOOD UREA NITROGEN 17 mg/dL (7-21); CALCIUM 9.1 mg/dL (8.4-10.5); CARBON DIOXIDE 30 mmol/L (21-33); CHLORIDE 98 mmol/L (98-107); GFR AFRICAN-AMERICAN > 60; GLUCOSE,RANDOM 217 mg/dL (70-110); POTASSIUM 4.3 mmol/L (3.6-5.0); SODIUM 136 mmol/L (132-148); TOTAL PROTEIN 6.5 g/dL (5.8-8.3)
[2016-07-27 07:19] LABS: INR 1.84 (0.93-1.08)
[2016-07-27 08:45] VITALS: BP 111/60; PULSE 75; TEMP 98; O2SAT 98
[2016-07-27] MEDS: cefTRIAXone 1 gm 100 ML IVPB SCH (09:21)
[2016-07-27] MEDS: MethylPREDNISolone 40 mg Vial IVP SCH (09:21)
[2016-07-27] MEDS: Pantoprazole 40 mg EC Tab PO SCH (09:21)
[2016-07-27] MEDS: Azithromycin 500MG/NS 250ml 250 ML IVPB SCH (09:22)
[2016-07-27] MEDS: Benzocaine/Menthol (Cepacol) Lozenge MT PRN (09:27)
[2016-07-27] MEDS: Divalproex 250 mg ER (ONCE DAILY formulation) PO SCH ×2 (10:32→17:25)
--- NOTE | 2016-07-27 11:37 | PN ---
DATE: 07/27/2016 PHYSICAL EXAMINATION: GENERAL: The patient seen and examined at bedside. She is comfortable, slightly sleepy, however, easily arousable, alert and oriented x 3. VITAL SIGNS: Temperature 98, blood pressure 111/60, respiratory rate 17, oxygen saturation 96 % room air. HEAD AND NECK: Atraumatic. LUNGS: Clear to auscultation bilaterally. HEART: Regular rate and rhythm. S1, S2 normal. ABDOMEN: Soft, nontender, nondistended. MUSCULOSKELETAL: No C/C/E. NEUROLOGIC: The patient moves all extremities spontaneously. SKIN: Moist. PSYCHIATRIC: The patient is alert and oriented x 3. LABORATORY DATA: Sodium 136, potassium 4.3, chloride 98, carbon dioxide 30, BUN 17, creatinine 0.8, glucose 217. WBC 8.2, hemoglobin 12.9, platelet count 255. MEDICATIONS: Brovana, warfarin, Depakote, Dilaudid p.r.n., DuoNeb p.r.n., gabapentin, nicotine patch, Protonix, Pulmicort inhaler, ceftriaxone, Robitussin p.r.n., Risperdal, tiotropium, Tessalon Perles, azithromycin, Zofran p.r.n. ASSESSMENT AND PLAN: This is a 51-year-old lady who presented with chronic obstructive pulmonary disease exacerbation. I would recommend to continue with antibiotics, steroid taper, inhaled corticosteroids, long-active beta-agonist, anticholinergic inhalers. At present time, the patient does not have any wheezing or shortness of breath. 6 min walk test to rule out hypoxemia on exertion will be ordered by primary hospitalist. Will continue with deep venous thrombosis and gastrointestinal prophylaxis. Addendum: discussed with Dr. Paula Grey (primary hospitalist)--ok to sign off for now, but pulm will be reconsulted if question arised or clinical status deteriorate Ld Henriquez MD cc: [id number] TT: 07/27/2016 11:36:14 Confirmation # [id number] Dictation # [id number] jonathan MALAGON
--- NOTE | 2016-07-27 15:01 | CP.PCM.DIS ---
Provider - Provider Date of Admission: 07/25/16 08:16 Attending physician: Tammy Grey MD Primary care physician: Lashanda Pink Consults: Dr. Ld Rainey Time Spent in preparation of Discharge (in minutes): 45 Hospital Course - Lab Results Lab Results: Micro Results 07/26/16 18:00 Sputum Gram Stain - Final 07/26/16 18:00 Sputum Sputum Culture - Preliminary NORMAL ORAL JANELL Most Recent Lab Values WBC 8.2 10^3/ul (4.5-11.0) 07/27/16 06:00 RBC 4.27 10^6/uL (3.5-6.1) 07/27/16 06:00 Hgb 12.9 gm/dL (12.0-16.0) 07/27/16 06:00 Hct 38.4 % (36.0-48.0) 07/27/16 06:00 MCV 89.9 fL (80.0-105.0) 07/27/16 06:00 MCH 30.2 pg (25.0-35.0) 07/27/16 06:00 MCHC 33.6 g/dl (31.0-37.0) 07/27/16 06:00 RDW 14.1 % (11.5-14.5) 07/27/16 06:00 Plt Count 255 10^3/uL (120.0-450.0) 07/27/16 06:00 MPV 9.7 fl (7.0-11.0) 07/27/16 06:00 Gran % 90.9 % (50.0-68.0) H 07/27/16 06:00 Lymph % (Auto) 6.2 % (22.0-35.0) L 07/27/16 06:00 [place] % (Auto) 2.9 % (1.0-6.0) 07/27/16 06:00 Eos % (Auto) 0.0 % (1.5-5.0) L 07/27/16 06:00 Baso % (Auto) 0.0 % (0.0-3.0) 07/27/16 06:00 Gran # 7.42 (1.4-6.5) H 07/27/16 06:00 Lymph # 0.5 (1.2-3.4) L 07/27/16 06:00 [place] # 0.2 (0.1-0.6) 07/27/16 06:00 Eos # 0.0 (0.0-0.7) 07/27/16 06:00 Baso # 0.00 K/mm3 (0.0-2.0) 07/27/16 06:00 PT 19.9 Seconds (9.9-11.8) H 07/27/16 06:00 INR 1.84 (0.93-1.08) H 07/27/16 06:00 APTT 38.3 Seconds (23.7-30.8) H 07/24/16 13:45 Sodium 136 mmol/L (132-148) 07/27/16 06:00 Potassium 4.3 mmol/L (3.6-5.0) 07/27/16 06:00 Chloride 98 mmol/L (98-107) 07/27/16 06:00 Carbon Dioxide 30 mmol/L (21-33) 07/27/16 06:00 Anion Gap 12 (10-20) 07/27/16 06:00 BUN 17 mg/dL (7-21) 07/27/16 06:00 Creatinine 0.8 mg/dL (0.5-1.4) 07/27/16 06:00 Est GFR ( Amer) > 60 07/27/16 06:00 Est GFR (Non-Af Amer) > 60 07/27/16 06:00 Random Glucose 217 mg/dL (70-110) H 07/27/16 06:00 Calcium 9.1 mg/dL (8.4-10.5) 07/27/16 06:00 Total Bilirubin 0.4 mg/dL (0.2-1.3) 07/27/16 06:00 AST 21 U/L (15-39) 07/27/16 06:00 ALT 40 U/L (7-56) 07/27/16 06:00 Alkaline Phosphatase 59 U/L (38-133) 07/27/16 06:00 Troponin I < 0.01 ng/mL 07/25/16 22:06 Total Protein 6.5 g/dL (5.8-8.3) 07/27/16 06:00 Albumin 3.5 g/dL (3.0-4.8) 07/27/16 06:00 Globulin 3.0 gm/dL 07/27/16 06:00 Albumin/Globulin Ratio 1.2 (1.1-1.8) 07/27/16 06:00 Urine Opiates Screen Positive (NEGATIVE) H 07/24/16 16:30 Urine Methadone Screen Negative (NEGATIVE) 07/24/16 16:30 Ur Barbiturates Screen Negative (NEGATIVE) 07/24/16 16:30 Ur Phencyclidine Scrn Negative (NEGATIVE) 07/24/16 16:30 Ur Amphetamines Screen Negative (NEGATIVE) 07/24/16 16:30 U Benzodiazepines Scrn Negative (NEGATIVE) 07/24/16 16:30 U Oth Cocaine Metabols Positive (NEGATIVE) H 07/24/16 16:30 U Cannabinoids Screen Negative (NEGATIVE) 07/24/16 16:30 - Hospital Course Hospital Course: CC: Shortness of Breath HPI: 50yo F with PMHx including Rt squamous lung CA s/p resection s/p completed radiation s/p chemo with recurrence, Pulmonary Embolus on Warfarin, COPD, Angina , Chronic pain on high dose opiates, drug abuse here for evaluation of shortness of breath. Patient states that she has had similar episodes in the past and have been waxing and waning over the past few months. She also c/o chest pain which she suffers from chronically due to her history of lung cancer. Patient took two albuterol neb treatments at home without any relief and called EMS to transfer to the ER for further evaluation. She c/o chronic cough, productive of thick clear sputum. Patient also reports cocaine use one week ago. She states that she takes oxycodone 30mg PO q4h at home for pain. She denies any N/V/D. No F/C. No Headaches. Denies sick contacts. Patient states that she was in the ED 2 days ago with similar symptoms, however, she signed out against medical advice in order to make an appointment with a pain management physician. She states that the pain management physician called to cancel that appointment which was originally scheduled for yesterday (Monday) and rescheduled it for August 02. She is unable to remember the name of the pain specialist, however, she states that his office is in [facility]. Patient is a 50 y/o AA F who presented with shortness of breath and chronic back pain. An intial chest x-ray was performed showing no acute disease process. A CT angio of the chest was performed which showed emphysematous changes and no evidence of PE. She was started on Zithromax and Rocephin and pulmonology was consulted. She was given a treatment regimen of Solumedrol, and Duoneb treatments. Due to her chronic back pain and rediculopathy, she was started on Gabapentin which alleviated her pain. She was found to be cocaine and opiate positive. Pain management was consulted due to her chronic back pain. Her SOB improved and she was evaluated by physical therapy. She was determined medically stable for discharge with home services. She was discharged with home services and with prescriptions for Levaquin 750 mg PO daily, Gabapentin 300 mg PO BID, Protonix 40mg PO daily, and a Prednisone taper. She was told to resume home medications, take medications as prescribed, and refrain from illegal drug use; follow up with your primary care physician within a week as well as make your appointment with a pain management physician ; and if your condition worsens or new symptoms arise, please return to the emergency department. She verbalized understanding and was discharged home using [employer]. This is a brief summary of the patient's stay here. For more detail see patient' s chart. - Date & Time of H&P Date of H&P: 07/24/16 Time of H&P: 17:08 Discharge Exam - Head Exam Head Exam: ATRAUMATIC, NORMOCEPHALIC - Eye Exam Eye Exam: EOMI, Normal appearance, PERRL Pupil Exam: NORMAL ACCOMODATION, PERRL - ENT Exam ENT Exam: Mucous Membranes Moist - Respiratory Exam Respiratory Exam: Clear to PA & Lateral, NORMAL BREATHING PATTERN. absent: Rales, Rhonchi, Wheezes - Cardiovascular Exam Cardiovascular Exam: REGULAR RHYTHM, +S1, +S2 - GI/Abdominal Exam GI & Abdominal Exam: Normal Bowel Sounds, Soft. absent: Tenderness - Extremities Exam Extremities exam: normal capillary refill, normal inspection, pedal pulses present - Back Exam Back exam: tenderness (T10-L1 mild tenderness to palpation) - Neurological Exam Neurological exam: Alert, CN II-XII Intact, Oriented x3 - Psychiatric Exam Psychiatric exam: Normal Affect, Normal Mood - Skin Skin Exam: Dry, Intact, Normal Color Discharge Plan - Discharge Medications Prescriptions: levoFLOXacin [Levaquin] 750 mg PO DAILY #7 tab Gabapentin [Neurontin] 300 mg PO TID #45 cap Pantoprazole Sodium [Protonix] 40 mg PO DAILY #7 ect - Follow Up Plan Condition: FAIR Disposition: DISCHARGED TO HOME CARE Instructions: COPD (Chronic Obstructive Pulmonary Disease) (DC), Dyspnea (GEN) , How Your Lungs Work (DC) Additional Instructions: 1) You are medically stable for discharge home. 2) You are discharged with home services and with prescriptions for Levaquin 750 mg PO daily, Gabapentin 300 mg PO BID, Protonix 40mg PO daily, and a Prednisone taper. 3) Please resume home medications, take medications as prescribed, and refrain from illegal drug use. 4) Please follow up with your primary care physician within a week as well as make your appointment with a pain management physician. 5) If your condition worsens or new symptoms arise, please return to the emergency department. Referrals: Lui Beck MD [Medical Doctor] - Lashanda Pink [Primary Care Provider] -
[2016-07-27] MEDS ORDERED: Budesonide 0.5 mg/2 ml Inhal Susp UD IH SCH (20:00)
[2016-07-27] MEDS ORDERED: Arformoterol 15 mcg/2 ml Inh Sol IH SCH (20:00)
[2016-07-28] MEDS ORDERED: Tiotropium 18 mcg Cap For Inhalation IH SCH (10:00)
== END 2016-07-27 19:13 | disposition home health service (06) | DRG 88 ==
LOC: ED 13:40 → ERH 16:17 → 2RNO 18:37 → OBSVTOIN 07-25 08:16 → 3RSO 07-25 13:25
PROVIDERS: ADMIT Internal Medicine; ATTEND Hospitalist
DX: J44.1 Chronic obstructive pulmonary disease with (acute) exacerbation (principal); F14.10 Cocaine abuse, uncomplicated; G62.9 Polyneuropathy, unspecified; G89.4 Chronic pain syndrome; I25.118 Atherosclerotic heart disease of native coronary artery with other forms of angina pectoris; F31.9 Bipolar disorder, unspecified; F12.10 Cannabis abuse, uncomplicated; M54.9 Dorsalgia, unspecified; Z85.118 Personal history of other malignant neoplasm of bronchus and lung; Z86.711 Personal history of pulmonary embolism; Z86.718 Personal history of other venous thrombosis and embolism; Z92.3 Personal history of irradiation; Z79.01 Long term (current) use of anticoagulants; Z87.891 Personal history of nicotine dependence; Z90.2 Acquired absence of lung [part of]; Z88.0 Allergy status to penicillin; Z79.891 Long term (current) use of opiate analgesic; Z92.21 Personal history of antineoplastic chemotherapy; Z88.6 Allergy status to analgesic agent

== ENCOUNTER 2016-08-21 11:36 | Emergency (ER) | payer OTHER ==
[2016-08-21 11:44] VITALS: BMI 35.2
[2016-08-21 11:49] VITALS: TEMP 98.2
[2016-08-21] MEDS ORDERED: Albuterol-Ipratrop 3 mg / 0.5 (3 ml) UD IH STA (12:01)
[2016-08-21] MEDS ORDERED: Morphine 4 mg/ml ISec IVP STA (12:01)
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
[2016-08-21 12:16] LABS: ADD MANUAL DIFF? NO
[2016-08-21 12:28] LABS: BASO # 0.01 K/mm3 (0.0-2.0); BASO % 0.3 % (0.0-3.0); EOS % 1.1 % (1.5-5.0); GRAN # 1.69 (1.4-6.5); GRAN % 48.5 % (50.0-68.0); HEMATOCRIT 42.3 % (36.0-48.0); LYMPH # 1.4 (1.2-3.4); LYMPH % 39.8 % (22.0-35.0); MEAN CELL VOLUME 87.2 fL (80.0-105.0); MEAN CORPUSCULAR HEMOGLOBIN 30.3 pg (25.0-35.0); MEAN CORPUSCULAR HGB CONC 34.8 g/dl (31.0-37.0); MEAN PLATELET VOLUME 9.4 fl (7.0-11.0); MONO # 0.4 (0.1-0.6); MONO % 10.3 % (1.0-6.0); PLATELET COUNT 283 10^3/uL (120.0-450.0); WHITE BLOOD COUNT 3.5 10^3/ul (4.5-11.0)
[2016-08-21 12:32] LABS: ALB/GLOB RATIO 1.2 (1.1-1.8); ALKALINE PHOSPHATASE 75 U/L (38-133); ALT/SGPT 36 U/L (7-56); AST/SGOT 25 U/L (15-39); BILIRUBIN,TOTAL 0.6 mg/dL (0.2-1.3); BLOOD UREA NITROGEN 10 mg/dL (7-21); CALCIUM 9.5 mg/dL (8.4-10.5); CARBON DIOXIDE 27 mmol/L (21-33); CHLORIDE 103 mmol/L (98-107); GFR AFRICAN-AMERICAN > 60; GLUCOSE,RANDOM 86 mg/dL (70-110); POTASSIUM 3.7 mmol/L (3.6-5.0); SODIUM 141 mmol/L (132-148); TOTAL PROTEIN 7.1 g/dL (5.8-8.3)
[2016-08-21 12:34] LABS: INR 1.23 (0.93-1.08); PARTIAL THROMBOPLASTIN TIME 29.5 Seconds (23.7-30.8)
[2016-08-21 12:47] LABS: TROPONIN I < 0.01 ng/mL
[2016-08-21 12:56] LABS: PH,URINE 7.5 (4.7-8.0); URINE BILIRUBIN NEGATIVE (NEGATIVE); URINE BLOOD TRACE-LYSED (NEGATIVE); URINE GLUCOSE (UA) NEGATIVE (NEGATIVE); URINE KETONE NEGATIVE (NEGATIVE); URINE LEUKOCYTE ESTERASE NEGATIVE Leu/uL (NEGATIVE); URINE PROTEIN NEGATIVE mg/dL (<30 mg/dL); URINE UROBILINOGEN 0.2 E.U./dL (<1 E.U./dL)
[2016-08-21 13:00] LABS: URINE APPEARANCE CLEAR (CLEAR); URINE COLOR YELLOW (YELLOW); URINE WBC 0 - 2 /hpf (0-6)
[2016-08-21 13:38] VITALS: BP 123/98; PULSE 79; RESP 16; O2SAT 97
--- NOTE | 2016-08-21 15:58 | RAD ---
HISTORY: wheezing COMPARISON: No prior. FINDINGS: LUNGS: No active pulmonary disease. PLEURA: No significant pleural effusion identified, no pneumothorax apparent. CARDIOVASCULAR: Normal. OSSEOUS STRUCTURES: No significant abnormalities. VISUALIZED UPPER ABDOMEN: Normal. OTHER FINDINGS: None. IMPRESSION: No active disease.
--- NOTE | 2016-08-21 23:36 | CARD ---
APPROVED REPORT EKG Measurement Heart [id number] <Conclusion> Normal sinus rhythm Normal ECG
== END 2016-08-21 13:46 | disposition home or self-care (01) ==
LOC: ED 11:36
DX: R07.9 Chest pain, unspecified (principal); I10 Essential (primary) hypertension; Z85.118 Personal history of other malignant neoplasm of bronchus and lung; Z86.711 Personal history of pulmonary embolism; Z79.01 Long term (current) use of anticoagulants; Z72.0 Tobacco use
CPT/HCPCS: 71010; 80053; 81001; 82550; 83615; 83880; 84484; 85025; 85610; 85730; 93005; 96374; 96375; 99283; J2270; J2930

== ENCOUNTER 2016-10-27 15:55 | Emergency (ER) | payer OTHER ==
[2016-10-27 16:04] VITALS: TEMP 98; O2SAT 98; BMI 36.6
[2016-10-27] MEDS ORDERED: HYDROmorphone 1 mg/ml ISec IVP STA (16:05)
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
[2016-10-27] MEDS: Albuterol-Ipratrop 3 mg / 0.5 (3 ml) UD IH SCH ×3 (16:41→17:06)
[2016-10-27 16:49] LABS: ADD MANUAL DIFF? NO
[2016-10-27 17:06] LABS: BASO # 0.01 K/mm3 (0.0-2.0); BASO % 0.2 % (0.0-3.0); EOS % 0.8 % (1.5-5.0); GRAN % 75.1 % (50.0-68.0); HEMATOCRIT 37.3 % (36.0-48.0); LYMPH # 0.8 (1.2-3.4); LYMPH % 16.4 % (22.0-35.0); MEAN CELL VOLUME 89.7 fL (80.0-105.0); MEAN CORPUSCULAR HEMOGLOBIN 29.8 pg (25.0-35.0); MEAN CORPUSCULAR HGB CONC 33.2 g/dl (31.0-37.0); MEAN PLATELET VOLUME 9.1 fl (7.0-11.0); MONO # 0.4 (0.1-0.6); MONO % 7.5 % (1.0-6.0); PLATELET COUNT 250 10^3/uL (120.0-450.0); RED CELL DISTRIBUTION WIDTH 14.5 % (11.5-14.5); WHITE BLOOD COUNT 4.9 10^3/ul (4.5-11.0)
[2016-10-27 17:14] LABS: BLOOD UREA NITROGEN 6 mg/dL (7-21); CALCIUM 9.1 mg/dL (8.4-10.5); CARBON DIOXIDE 29 mmol/L (21-33); CHLORIDE 104 mmol/L (98-107); GFR AFRICAN-AMERICAN > 60; GLUCOSE,RANDOM 94 mg/dL (70-110); POTASSIUM 3.6 mmol/L (3.6-5.0); SODIUM 139 mmol/L (132-148)
[2016-10-27 17:32] LABS: INR 1.13 (0.93-1.08); PARTIAL THROMBOPLASTIN TIME 31.2 Seconds (23.7-30.8)
[2016-10-27 17:35] LABS: TROPONIN I < 0.01 ng/mL
[2016-10-27 18:18] VITALS: BP 110/92; PULSE 95; RESP 16
--- NOTE | 2016-10-28 11:30 | CARD ---
APPROVED REPORT EKG Measurement Heart [id number] <Conclusion> Sinus tachycardia Otherwise normal ECG
--- NOTE | 2016-10-31 11:27 | RAD ---
HISTORY: sob r/o pna COMPARISON: 08/21/2016 FINDINGS: LUNGS: No active pulmonary disease. PLEURA: No significant pleural effusion identified, no pneumothorax apparent. CARDIOVASCULAR: Normal. OSSEOUS STRUCTURES: No significant abnormalities. VISUALIZED UPPER ABDOMEN: Normal. OTHER FINDINGS: Left-sided Port-A-Cath IMPRESSION: No active disease.
== END 2016-10-27 18:28 | disposition home or self-care (01) ==
LOC: ED 15:55
DX: J44.1 Chronic obstructive pulmonary disease with (acute) exacerbation (principal); R07.9 Chest pain, unspecified; I10 Essential (primary) hypertension; Z85.118 Personal history of other malignant neoplasm of bronchus and lung; Z86.711 Personal history of pulmonary embolism; Z79.01 Long term (current) use of anticoagulants; Z72.0 Tobacco use
CPT/HCPCS: 80048; 82550; 83615; 84484; 85025; 85610; 85730; 87040; 93005; 96374; 96375; 99284; J1170; J2930

== ENCOUNTER 2016-11-11 22:13 | Emergency (ER) | payer OTHER ==
[2016-11-11 22:14] VITALS: BMI 36.6
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
--- NOTE | 2016-11-12 09:23 | CARD ---
APPROVED REPORT EKG Measurement Heart [id number] MD [id number] [id number] <Conclusion> Sinus tachycardia Otherwise normal ECG
[2016-11-12 12:15] VITALS: BP 137/65; PULSE 119; RESP 22; TEMP 98.5; O2SAT 98
== END 2016-11-12 00:18 | disposition left against medical advice (07) ==
LOC: ED 22:13
DX: M54.9 Dorsalgia, unspecified (principal); I25.2 Old myocardial infarction; I10 Essential (primary) hypertension; Z72.0 Tobacco use

== ENCOUNTER 2016-12-07 21:26 | Emergency (ER) | payer MEDICAID, OTHER ==
[2016-12-07 21:33] VITALS: BMI 36.9
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
[2016-12-07] MEDS ORDERED: HYDROmorphone 2 mg/ml ISec IVP STA ×2 (21:55→22:37)
[2016-12-07] MEDS ORDERED: DiphenhydrAMINE 50 mg/ml Inj IVP ONE ×2 (21:55→22:37)
[2016-12-07 22:06] VITALS: TEMP 98.5
[2016-12-07 22:13] LABS: HEMOGLOBIN 13.7 g/dL (12.0-16.0); MEAN CELL VOLUME 88.3 fl (80.0-105.0); MEAN CORPUSCULAR HEMOGLOBIN 30.3 pg (25.0-35.0); MEAN CORPUSCULAR HGB CONC 34.3 g/dl (31.0-37.0); MEAN PLATELET VOLUME 9.2 fl (7.0-11.0); RBC 4.52 10^6/uL (3.5-6.1); RED CELL DISTRIBUTION WIDTH 13.6 % (11.5-14.5); WHITE BLOOD COUNT 4.1 10^3/ul (4.5-11.0)
[2016-12-07 22:24] LABS: ALB/GLOB RATIO 1.4 (1.1-1.8); ALBUMIN 4.1 g/dL (3.0-4.8); ALT/SGPT 30 U/L (7-56); AST/SGOT 24 U/L (15-39); BLOOD UREA NITROGEN 13 mg/dL (7-21); CALCIUM 9.3 mg/dL (8.4-10.5); GFR AFRICAN-AMERICAN > 60; GFR NON-AFRICAN AMERICAN 58
[2016-12-07 22:25] LABS: INR 1.48 (0.93-1.08); PARTIAL THROMBOPLASTIN TIME 33.8 Seconds (23.7-30.8)
[2016-12-08 01:57] VITALS: BP 135/78; PULSE 100; RESP 16; O2SAT 96
--- NOTE | 2016-12-08 08:17 | RAD ---
HISTORY: pain COMPARISON: 10/27/2016 FINDINGS: LUNGS: No active pulmonary disease. PLEURA: No significant pleural effusion identified, no pneumothorax apparent. CARDIOVASCULAR: Normal. OSSEOUS STRUCTURES: No significant abnormalities. VISUALIZED UPPER ABDOMEN: Normal. OTHER FINDINGS: Left-sided Port-A-Cath IMPRESSION: No active disease.
--- NOTE | 2016-12-09 01:10 | CARD ---
APPROVED REPORT EKG Measurement Heart [id number] HI 132P70 [id number] <Conclusion> Sinus tachycardia Otherwise normal ECG
== END 2016-12-08 01:00 | disposition home or self-care (01) ==
LOC: ED 21:26
DX: M54.6 Pain in thoracic spine (principal); J44.9 Chronic obstructive pulmonary disease, unspecified; I10 Essential (primary) hypertension; F17.210 Nicotine dependence, cigarettes, uncomplicated; Z79.01 Long term (current) use of anticoagulants; Z85.118 Personal history of other malignant neoplasm of bronchus and lung
CPT/HCPCS: 71010; 80053; 85027; 85610; 85730; 93005; 96374; 96375; 96376; 99283; J1170; J1200

== ENCOUNTER 2016-12-19 16:53 | Emergency (ER) | payer MEDICAID ==
[2016-12-19 16:53] VITALS: BMI 36.9
[2016-12-19 17:02] VITALS: BP 121/76; PULSE 100; RESP 20; TEMP 98.6; O2SAT 100
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
--- NOTE | 2016-12-20 19:33 | CARD ---
APPROVED REPORT EKG Measurement Heart [id number] [place] 140P71 [id number] <Conclusion> Sinus tachycardia Otherwise normal ECG
== END 2016-12-19 17:40 | disposition home or self-care (01) ==
LOC: ED 16:53
DX: G89.29 Other chronic pain (principal)

== ENCOUNTER 2017-02-22 10:48 | Emergency (ER) | payer MEDICAID, OTHER ==
[2017-02-22 10:48] VITALS: BMI 36.3
[2017-02-22] MEDS ORDERED: HYDROmorphone 1 mg/ml ISec IVP STA ×2 (11:00→11:23)
[2017-02-22 11:05] VITALS: TEMP 98.2
[2017-02-22] MEDS ORDERED: HYDROmorphone 0.5 mg/0.5 ml ISec IVP STA (11:18)
[2017-02-22 11:29] LABS: BASO # 0.03 K/mm3 (0.0-2.0); BASO % 0.5 % (0.0-3.0); EOS # 0.1 (0.0-0.7); GRAN # 4.29 (1.4-6.5); GRAN % 70.4 % (50.0-68.0); HEMATOCRIT 42.2 % (36.0-48.0); LYMPH # 1.3 (1.2-3.4); LYMPH % 21.5 % (22.0-35.0); MEAN CELL VOLUME 86.3 fl (80.0-105.0); MEAN CORPUSCULAR HEMOGLOBIN 29.4 pg (25.0-35.0); MEAN CORPUSCULAR HGB CONC 34.1 g/dl (31.0-37.0); MEAN PLATELET VOLUME 9.3 fl (7.0-11.0); MONO # 0.4 (0.1-0.6); MONO % 6.6 % (1.0-6.0); RED CELL DISTRIBUTION WIDTH 13.9 % (11.5-14.5); WHITE BLOOD COUNT 6.1 10^3/ul (4.5-11.0)
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
[2017-02-22 11:36] LABS: ALB/GLOB RATIO 1.5 (1.1-1.8); ALKALINE PHOSPHATASE 90 U/L (38-126); ALT/SGPT 28 U/L (7-56); AST/SGOT 28 U/L (14-36); BILIRUBIN,TOTAL 0.8 mg/dL (0.2-1.3); BLOOD UREA NITROGEN 10 mg/dL (7-21); CALCIUM 9.5 mg/dL (8.4-10.5); CARBON DIOXIDE 24 mmol/L (21-33); CHLORIDE 105 mmol/L (98-107); GFR AFRICAN-AMERICAN > 60; GLUCOSE,RANDOM 105 mg/dL (70-110); POTASSIUM 4.3 mmol/L (3.6-5.0); SODIUM 142 mmol/L (132-148); TOTAL PROTEIN 7.4 g/dL (5.8-8.3)
[2017-02-22 11:41] LABS: INR 1.14 (0.93-1.08); PARTIAL THROMBOPLASTIN TIME 29.3 Seconds (25.1-36.5)
[2017-02-22] MEDS ORDERED: Albuterol-Ipratrop 3 mg / 0.5 (3 ml) UD IH STA (11:45)
[2017-02-22] MEDS ORDERED: methylPREDNISolone 125 MG in Sodium Chloride 0.9% 100 ML IVPB ONE (11:46)
[2017-02-22 11:53] LABS: TROPONIN I < 0.01 ng/mL
[2017-02-22] MEDS ORDERED: Sodium Chloride 0.9% 1,000 ML IV SCH (12:15)
[2017-02-22] MEDS ORDERED: DiphenhydrAMINE 50 mg/ml Inj IVP STA (12:19)
--- NOTE | 2017-02-22 13:10 | ED PDOC ---
Physical Exam Vital Signs Temp Pulse Pulse Resp BP BP Pulse Ox 02/22/17 13:15 90 18 103/74 99 02/22/17 11:00 117 H 144/75 02/22/17 10:59 98.2 F 139 H 20 144/75 97 Medical Decision Making ED Course and Treatment: 02/22/17 13:07 Patient was brought in via EMS for right chest pain. Case was signed out to me by Dr. Freedman. Follow up for chest CT. Will re-eval and dispo. EKG: Ordered, reviewed, and independently interpreted the EKG. Rate : 131 BPM Rhythm : sinus tachycardia Interpretation : No ST-segment elevations or depressions, no T-wave inversions, normal intervals. No change from previous EKG. 02/22/17 13:56 Patient is feeling much better and pain has improved significantly. CXR negative. CT Chest Angio negative for PE. Patient has pain medications at home given by her PMD. She will make sure to follow up with her doctor in the next 1- 2days. She was advised to return to the ED if symptoms worsen or any other concern. - Lab Interpretations Lab Results: 02/22/17 11:13 02/22/17 11:13 Lab Results 02/22/17 13:30: Urine Color Light yellow, Urine Appearance Clear, Urine pH 6.0, Ur Specific [place] 1.015, Urine Protein Negative, Urine Glucose (UA) Negative, Urine Ketones Negative, Urine Blood Trace-intact H, Urine Nitrate Negative, Urine Bilirubin Negative, Urine Urobilinogen 0.2, Ur Leukocyte Esterase Negative , Urine RBC Pending, Urine WBC Pending 02/22/17 11:13: Sodium 142, Potassium 4.3, Chloride 105, Carbon Dioxide 24, Anion Gap 17, BUN 10, Creatinine 1.1, Est GFR ( Amer) > 60, Est GFR (Non- Af Amer) 52, Random Glucose 105, Calcium 9.5, Magnesium 2.0, Total Bilirubin 0.8 , AST 28, ALT 28, Alkaline Phosphatase 90, Lactate Dehydrogenase 561, Total Creatine Kinase 195, Troponin I < 0.01, NT-Pro-B Natriuret Pep 47.4, Total Protein 7.4, Albumin 4.4, Globulin 3.0, Albumin/Globulin Ratio 1.5 02/22/17 11:13: PT 12.6 H, INR 1.14 H, APTT 29.3, D-Dimer, Quantitative 373 H 02/22/17 11:13: WBC 6.1 D, RBC 4.89, Hgb 14.4, Hct 42.2, MCV 86.3, MCH 29.4, MCHC 34.1, RDW 13.9, Plt Count 311, MPV 9.3, Gran % 70.4 H, Lymph % (Auto) 21.5 L, [place] % (Auto) 6.6 H, Eos % (Auto) 1.0 L, Baso % (Auto) 0.5, Gran # 4.29, Lymph # 1.3, [place] # 0.4, Eos # 0.1, Baso # 0.03 I have reviewed the lab results: Yes - RAD Interpretation Radiology Orders: 02/22/17 11:05 CHEST PORTABLE [RAD] Stat 02/22/17 11:47 ANGIO CHEST PE PROTOCOL [CT] Stat - EKG Interpretation Interpreted by ED Physician: Yes Type: 12 lead EKG - Medication Orders Current Medication Orders: Sodium Chloride (Sodium Chloride 0.9%) 1,000 mls @ 100 mls/hr IV .Q10H SOPHIA Last Admin: 02/22/17 12:34 Dose: 100 mls/hr eMAR Start Stop Document 02/22/17 12:34 CNR (Rec: 02/22/17 12:34 CNR [id number]) Intravenous Solution Start Date 02/22/17 Start Time 12:34 Discontinued Medications Albuterol/Ipratropium (Duoneb 3 Mg/0.5 Mg (3 Ml) Ud) 3 ml IH STAT STA Stop: 02/22/17 11:46 Last Admin: 02/22/17 12:00 Dose: 3 ml Diphenhydramine HCl (Benadryl) 25 mg IVP STAT STA Stop: 02/22/17 12:20 Last Admin: 02/22/17 12:33 Dose: 25 mg IVP Administration Document 02/22/17 12:33 CNR (Rec: 02/22/17 12:33 CNR [id number]) Charges for Administration # of IVP Administrations 1 Hydromorphone HCl (Dilaudid) 1 mg IVP STAT STA Stop: 02/22/17 11:01 Last Admin: 02/22/17 11:11 Dose: 1 mg MAR Pain Assessment Document 02/22/17 11:11 CNR (Rec: 02/22/17 11:11 CNR [id number]) Pain Reassessment Is this a pain reassessment? Yes Sleep Is patient sleeping during reassessment? No Presence of Pain Presence of Pain Yes Pain Scale Used Pain Scale Used Numeric Location Left, Right or Bilateral Right Pain Location Body Site Chest Description Description Constant IVP Administration Document 02/22/17 11:11 CNR (Rec: 02/22/17 11:11 [facility]NR [id number][facility] Charges for Administration # of IVP Administrations 1 Hydromorphone HCl (Dilaudid) 1 mg IVP STAT STA Stop: 02/22/17 11:24 Last Admin: 02/22/17 11:31 Dose: 1 mg MAR Pain Assessment Document 02/22/17 11:31 CNR (Rec: 02/22/17 11:31 CNR [id number]) Pain Reassessment Is this a pain reassessment? Yes IVP Administration Document 02/22/17 11:31 CNR (Rec: 02/22/17 11:31 CNR [id number]) Charges for Administration # of IVP Administrations 1 Methylprednisolone 125 mg/ (Sodium Chloride) 100 mls @ 200 mls/hr IVPB ONCE ONE Stop: 02/22/17 11:47 Last Admin: 02/22/17 12:34 Dose: 200 mls/hr eMAR Start Stop Document 02/22/17 12:34 CNR (Rec: 02/22/17 12:34 [facility]NR [id number]) Intravenous Solution Start Date 02/22/17 Start Time 12:34 - Scribe Statement The provider has reviewed the documentation as recorded by the Mynor Brandon Provider Scribe Attestation: All medical record entries made by the Scribe were at my direction and personally dictated by me. I have reviewed the chart and agree that the record accurately reflects my personal performance of the history, physical exam, medical decision making, and the department course for this patient. I have also personally directed, reviewed, and agree with the discharge instructions and disposition. Disposition/Present on Arrival - Present on Arrival Any Indicators Present on Arrival: Yes History of DVT/PE: Yes History of Uncontrolled Diabetes: No Urinary Catheter: No History of Decub. Ulcer: No History Surgical Site Infection Following: None - Disposition Have Diagnosis and Disposition been Completed?: Yes Diagnosis: Chest pain Disposition: HOME/ ROUTINE Disposition Time: 13:57 Patient Plan: Discharge Patient Problems: Current Active Problems Problem Status Onset Chest pain Acute Condition: IMPROVED Additional Instructions: Ms Messina, thank you for letting us take care of you today. Your provider was Dr. Lozano. You were treated for Chest Pain. The emergency medical care you received today was directed at your acute symptoms. If you were prescribed any medication, please fill it and take as directed. It may take several days for your symptoms to resolve. Return to the Emergency Department if your symptoms worsen, do not improve, or if you have any other problems. Please contact your doctor or call one of the physicians/clinics you have been referred to that are listed on the Patient Visit Information form that is included in your discharge packet. Bring any paperwork you were given at discharge with you along with any medications you are taking to your follow up visit. Our treatment cannot replace ongoing medical care by a primary care provider (PCP) outside of the emergency department. Thank you for allowing the [facility] team to be part of your care today. If you had an X-Ray or CT scan: A Radiologist will review the ED reading if any change in treatment is needed we will contact you. If you had a blood, urine, or wound culture: It will take several days for the results, if any change in treatment is needed we will contact you. If you had an STI test: It will take 48 hours for the results. Please call after 1 week if you have not heard back. Referrals: [facility] Carin Resparkle, [Family Provider] - Follow up with primary Forms: [employer] (Niuean), WORK NOTE
[2017-02-22 13:27] VITALS: BP 103/74; PULSE 90; RESP 18; O2SAT 99
[2017-02-22 13:45] LABS: URINE BILIRUBIN NEGATIVE (NEGATIVE); URINE BLOOD TRACE-INTACT (NEGATIVE); URINE GLUCOSE (UA) NEGATIVE (NEGATIVE); URINE KETONE NEGATIVE (NEGATIVE); URINE LEUKOCYTE ESTERASE NEGATIVE Leu/uL (NEGATIVE); URINE PROTEIN NEGATIVE mg/dL (<30 mg/dL); URINE UROBILINOGEN 0.2 E.U./dL (<1 E.U./dL)
--- NOTE | 2017-02-22 13:47 | CT ---
PROCEDURE: CT Chest with contrast (Pulmonary Angiogram) HISTORY: hx of PE and states right CP feels like PE again COMPARISON: 12/27/2016 CT TECHNIQUE: Axial computed tomography images were obtained of the chest in the pulmonary arterial phase of enhancement. Coronal and sagittal reformatted images were created and reviewed. Intravenous contrast dose: 150 cc of Omni 350 Radiation dose: Total exam DLP = 755 mGy-cm. This CT exam was performed using one or more of the following dose reduction techniques: Automated exposure control, adjustment of the mA and/or kV according to patient size, and/or use of iterative reconstruction technique. FINDINGS: PULMONARY ARTERIES: Unremarkable. No pulmonary embolism. AORTA: No acute findings. No thoracic aortic aneurysm. LUNGS: There is parenchymal scarring in the medial segment of the right upper lobe similar to the previous study. Some emphysematous changes are seen in the upper lobes left greater than right. PLEURAL SPACES: Unremarkable. No effusion or pneuomothorax. HEART: Unremarkable. No cardiomegaly. No significant pericardial effusion. LYMPH NODES: No lymphadenopathy. BONES, CHEST WALL: Unremarkable. No fracture or destructive lesion OTHER FINDINGS: Unremarkable. IMPRESSION: There is parenchymal scarring in the medial segment of the right upper lobe similar to the previous study. Some emphysematous changes are seen in the upper lobes left greater than right. No evidence of pulmonary embolus
[2017-02-22 13:49] LABS: URINE APPEARANCE CLEAR (CLEAR); URINE COLOR LIGHT YELLOW (YELLOW)
[2017-02-22 14:03] LABS: URINE BACTERIA FEW (NEG); URINE RBC 0 - 2 /hpf (0-2); URINE WBC 0 - 2 /hpf (0-6)
--- NOTE | 2017-02-22 14:09 | RAD ---
HISTORY: Right side chest pain COMPARISON: 12/07/2016 FINDINGS: LUNGS: No active pulmonary disease. PLEURA: No significant pleural effusion identified, no pneumothorax apparent. CARDIOVASCULAR: Normal. OSSEOUS STRUCTURES: No significant abnormalities. VISUALIZED UPPER ABDOMEN: Normal. OTHER FINDINGS: Left Port-A-Cath IMPRESSION: No active disease.
--- NOTE | 2017-02-23 08:51 | CARD ---
APPROVED REPORT EKG Measurement Heart [id number] <Conclusion> Sinus tachycardia Possible Left atrial enlargement No change except the rate is faster
== END 2017-02-22 14:33 | disposition home or self-care (01) ==
LOC: ED 10:48
DX: R07.9 Chest pain, unspecified (principal); I10 Essential (primary) hypertension; Z86.711 Personal history of pulmonary embolism; F17.210 Nicotine dependence, cigarettes, uncomplicated; Z79.01 Long term (current) use of anticoagulants
CPT/HCPCS: 71010; 71275; 80053; 80324; 80345; 80346; 80349; 80353; 80358; 80361; 81001; 82550; 83615; 83735; 83880; 83992; 84484; 85025; 85378; 85610; 85730; 93005; 96374; 96375; 99285; J1170; J1200; J2930; J7040; Q9967

== ENCOUNTER 2017-03-23 13:29 | Emergency (ER) | payer MEDICAID ==
[2017-03-23 13:28] VITALS: BMI 36.3
[2017-03-23 13:37] VITALS: RESP 18; TEMP 98.7
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
[2017-03-23 14:25] LABS: BASO # 0.02 K/mm3 (0.0-2.0); BASO % 0.4 % (0.0-3.0); EOS % 0.7 % (1.5-5.0); GRAN # 4.14 (1.4-6.5); GRAN % 73.5 % (50.0-68.0); HEMATOCRIT 41.5 % (36.0-48.0); LYMPH % 17.2 % (22.0-35.0); MEAN CELL VOLUME 87.2 fl (80.0-105.0); MEAN CORPUSCULAR HEMOGLOBIN 28.6 pg (25.0-35.0); MEAN CORPUSCULAR HGB CONC 32.8 g/dl (31.0-37.0); MEAN PLATELET VOLUME 9.6 fl (7.0-11.0); MONO # 0.5 (0.1-0.6); MONO % 8.2 % (1.0-6.0); RED CELL DISTRIBUTION WIDTH 14.3 % (11.5-14.5); WHITE BLOOD COUNT 5.6 10^3/ul (4.5-11.0)
[2017-03-23 14:33] LABS: ALB/GLOB RATIO 1.3 (1.1-1.8); ALKALINE PHOSPHATASE 79 U/L (38-126); ALT/SGPT 39 U/L (7-56); AST/SGOT 22 U/L (14-36); BILIRUBIN,TOTAL 0.7 mg/dL (0.2-1.3); BLOOD UREA NITROGEN 7 mg/dL (7-21); CALCIUM 9.4 mg/dL (8.4-10.5); CARBON DIOXIDE 29 mmol/L (21-33); CHLORIDE 105 mmol/L (98-107); GFR AFRICAN-AMERICAN > 60; GLUCOSE,RANDOM 99 mg/dL (70-110); POTASSIUM 4.3 mmol/L (3.6-5.0); SODIUM 139 mmol/L (132-148); TOTAL PROTEIN 6.9 g/dL (5.8-8.3)
[2017-03-23 15:36] LABS: PH,URINE 7.5 (4.7-8.0); URINE BILIRUBIN NEGATIVE (NEGATIVE); URINE BLOOD TRACE-INTACT (NEGATIVE); URINE GLUCOSE (UA) NEGATIVE (NEGATIVE); URINE KETONE NEGATIVE (NEGATIVE); URINE LEUKOCYTE ESTERASE NEGATIVE Leu/uL (NEGATIVE); URINE PROTEIN NEGATIVE mg/dL (<30 mg/dL); URINE UROBILINOGEN 0.2 E.U./dL (<1 E.U./dL)
[2017-03-23 15:38] LABS: URINE APPEARANCE CLEAR (CLEAR); URINE COLOR YELLOW (YELLOW)
[2017-03-23 15:47] LABS: URINE WBC 0 - 2 /hpf (0-6)
--- NOTE | 2017-03-23 15:52 | CT ---
PROCEDURE: CT HEAD WITHOUT CONTRAST. HISTORY: right sided AGUIRRE COMPARISON: Comparison made with CT scan brain dated in 04/08/2016. TECHNIQUE: Axial computed tomography images were obtained through the head/brain without intravenous contrast. Radiation dose: Total exam DLP = 775.01 mGy-cm. This CT exam was performed using one or more of the following dose reduction techniques: Automated exposure control, adjustment of the mA and/or kV according to patient size, and/or use of iterative reconstruction technique. FINDINGS: HEMORRHAGE: No no acute parenchymal, subarachnoid nor extra-axial hemorrhage. BRAIN: Mild diffuse/ confluent chronic periventricular white matter ischemic changes seen extending peripherally into the deep and subcortical white matter of both cerebral hemispheres. . Mild central volume loss evidenced by disproportionate enlargement of the ventricles as compared sulci. . VENTRICLES: No obstructive hydrocephalus. CALVARIUM: No acute calvarial fractures. PARANASAL SINUSES: Unremarkable as visualized. No significant inflammatory changes. MASTOID AIR CELLS: Unremarkable as visualized. No inflammatory changes. OTHER FINDINGS: Orbits and contents unremarkable. . IMPRESSION: No acute intracranial hemorrhage. Mild chronic white matter ischemic changes. Mild central volume loss.
--- NOTE | 2017-03-23 15:54 | RAD ---
HISTORY: cough COMPARISON: Correlation made with concurrent CTA chest. Comparison also made with chest radiograph 02/22/2017. FINDINGS: No change left subclavian MediPort tip in the SVC. LUNGS: Minor scarring changes right lung base with localized tenting right hemidiaphragm. Minor left basilar atelectasis. PLEURA: No significant pleural effusion identified, no pneumothorax apparent. CARDIOVASCULAR: Heart size within range of normal. OSSEOUS STRUCTURES: No significant abnormalities. VISUALIZED UPPER ABDOMEN: Normal. OTHER FINDINGS: None. IMPRESSION: The minor scarring right lung base with localized tenting right hemidiaphragm. Minor left basilar atelectasis.
--- NOTE | 2017-03-23 16:08 | CT ---
PROCEDURE: CT Chest with contrast (Pulmonary Angiogram) HISTORY: cough, right sided CP COMPARISON: The comparison made with CTA chest 02/22/2017. TECHNIQUE: Axial computed tomography images were obtained of the chest in the pulmonary arterial phase of enhancement. Coronal and sagittal reformatted images were created and reviewed. Intravenous contrast dose: 767.24 Radiation dose: Total exam DLP = mGy-cm. This CT exam was performed using one or more of the following dose reduction techniques: Automated exposure control, adjustment of the mA and/or kV according to patient size, and/or use of iterative reconstruction technique. FINDINGS: PULMONARY ARTERIES: The visualized pulmonary trunk, right and left main, lobar, segmental and subsegmental branches of the pulmonary arteries are well opacified with no definitive filling defects seen to suggest acute central pulmonary embolus. Pulmonary trunk measures approximately 2.67 cm. AORTA: No acute findings. No thoracic aortic aneurysm. Ascending thoracic aorta measures approximately 3.26 cm and descending thoracic aorta measures approximately 2.5 cm. . No evidence of dissection. LUNGS: Apparent partial right upper lobectomy with chronic area of atelectasis/ scarring in the right posteromedial upper lung field extending into the lung apex region. Additionally, there are linear scarring changes seen in the right lung base with some tenting of the right hemidiaphragm. Volume loss right upper lung field Minor left basilar atelectasis/ scarring changes. . Centrilobular emphysematous changes are again seen most severely affecting the upper lobes left greater than right. . PLEURAL SPACES: Unremarkable. No effusion or pneumothorax HEART: Heart remains enlarged. No significant pericardial effusion. . LYMPH NODES: Nonspecific soft tissue changes of within the mediastinum particularly notable in the precarinal and subcarinal regions. . Soft tissue also surrounds the right mainstem bronchus. . The possibility of diffuse adenopathy cannot be excluded. Small calcification in the right hilar region may represent post operative sequela or possibly calcified lymph node. . Findings are unchanged from prior exam BONES, CHEST WALL: Unremarkable. No fracture or destructive lesion OTHER FINDINGS: Central airways are patent. No endobronchial lesions. . Note made of a small approximately 4.5 mm low-attenuation focus left lobe liver of uncertain etiology unchanged from prior exam. . Consider followup triple phase CT scan liver in suggested. IMPRESSION: No evidence of acute central pulmonary embolus. Postoperative changes and scarring right upper lobe. Significant central lobular emphysematous changes with upper lobe predominance. . There are diffuse soft tissue changes within the mediastinum nonspecific. . Rule out treated adenopathy. Cardiomegaly. Small low-attenuation focus seen in the left lobe liver nonspecific though unchanged from prior exam. . This could represent a small hemangioma however other pathology including malignancy not excluded. Followup triple phase CT scan of the liver suggested. .
[2017-03-23 16:40] VITALS: BP 139/90; PULSE 89; O2SAT 97
--- NOTE | 2017-03-23 17:48 | CT ---
PROCEDURE: CT neck dated 03/23/2017 HISTORY: Right-sided neck pain COMPARISON: No prior TECHNIQUE: CT scan of the neck with intravenous contrast. Coronal and sagittal reformats generated. Intravenous contrast dose: 147 cc Omnipaque 350 Radiation dose: DLP 606.39 mGy-cm This CT exam was performed using one or more of the following dose reduction techniques: Automated exposure control, adjustment of the mA and/or kV according to patient size, and/or use of iterative reconstruction technique. . There are no large cervical masses or collections. No significant cervical adenopathy seen. . There is mild asymmetry of the thyroid gland right lobe of which is slightly larger than the left however no obvious thyroid lesions. The parotid and submandibular glands unremarkable. Cervical carotid arteries and vertebral arteries are poorly opacified due to mismatch in timing between intravenous injection and scanning and therefore cannot be adequately evaluated. The right internal carotid artery exhibits a short retropharyngeal course . The visualized portions of the oral cavity appear unremarkable. Vallecula appears relatively symmetric. There is also relative asymmetry of the aryepiglottic folds and pyriform sinuses. Streak and beam hardening artifact arising from the dense clavicles and shoulder girdles partially obscure the lower cervical region. Incidental note made of prominent styloid processes right larger than left. 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 Multilevel degenerative spondylosis of the cervical spine. Impression: There are no large cervical masses or collections. . No significant cervical adenopathy seen. Note that the examination is somewhat limited due to poor opacification.
== END 2017-03-23 18:16 | disposition home or self-care (01) ==
LOC: ED 13:29
DX: F14.10 Cocaine abuse, uncomplicated (principal); R51 Headache; M54.2 Cervicalgia; D18.03 Hemangioma of intra-abdominal structures; F17.210 Nicotine dependence, cigarettes, uncomplicated; M19.90 Unspecified osteoarthritis, unspecified site; F31.9 Bipolar disorder, unspecified; I10 Essential (primary) hypertension; Z79.01 Long term (current) use of anticoagulants; Z88.0 Allergy status to penicillin; J44.9 Chronic obstructive pulmonary disease, unspecified
CPT/HCPCS: 70450; 70491; 71010; 71275; 80053; 80324; 80345; 80346; 80349; 80353; 80358; 80361; 81001; 83605; 83992; 85025; 87040; 87086; 99285; Q9967

== ENCOUNTER 2017-08-23 19:47 | Observation (INO) | payer MEDICAID ==
[2017-08-23] MEDS ORDERED: Morphine 4 mg/ml ISec IVP PRN (19:57)
[2017-08-23] MEDS ORDERED: Albuterol-Ipratrop 3 mg / 0.5 (3 ml) UD IH STA (19:58)
[2017-08-23 20:21] LABS: GRAN # 6.62 (1.4-6.5); GRAN % 81.7 % (50.0-68.0); LYMPH # 1.1 (1.2-3.4); MEAN CORPUSCULAR HEMOGLOBIN 28.4 pg (25.0-35.0); MEAN CORPUSCULAR HGB CONC 33.1 g/dl (31.0-37.0); MEAN PLATELET VOLUME 9.1 fl (7.0-11.0); MONO # 0.4 (0.1-0.6); MONO % 5.3 % (1.0-6.0); RBC 4.57 10^6/uL (3.5-6.1); RED CELL DISTRIBUTION WIDTH 14.7 % (11.5-14.5); WHITE BLOOD COUNT 8.1 10^3/ul (4.5-11.0)
[2017-08-23 20:35] LABS: ALB/GLOB RATIO 1.6 (1.1-1.8); ALBUMIN 4.2 g/dL (3.0-4.8); ALT/SGPT 42 U/L (7-56); AST/SGOT 31 U/L (14-36); BLOOD UREA NITROGEN 16 mg/dL (7-21); CALCIUM 9.2 mg/dL (8.4-10.5); GFR AFRICAN-AMERICAN > 60; GFR NON-AFRICAN AMERICAN 58
[2017-08-23 20:37] LABS: INR 1.2 (0.93-1.08); PARTIAL THROMBOPLASTIN TIME 30.8 Seconds (25.1-36.5); PROTHROMBIN TIME 13.7 SECONDS (9.4-12.5)
[2017-08-23 20:42] LABS: VENOUS BLOOD GAS BASE EXCESS 3.2 mmol/L (0.0-2.0); VENOUS BLOOD GAS PO2 79 mm/Hg (30-55); VENOUS BLOOD PH 7.41 (7.32-7.43)
[2017-08-23 20:46] LABS: B-TYPE NATRIURETIC PEPTIDE 43.5 pg/mL (0-450); TROPONIN I < 0.01 ng/mL
[2017-08-23] MEDS ORDERED: Iodixanol 320 MG/ML 100 ML BOTTLE IV ONE (21:10)
[2017-08-23] MEDS ORDERED: Morphine 2 mg/ml ISec IVP STA (21:16)
[2017-08-23] MEDS ORDERED: Morphine 4 mg/ml ISec IVP STA (21:19)
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
--- NOTE | 2017-08-23 22:57 | CT ---
EXAM: CT Angiography Chest With Intravenous Contrast CLINICAL HISTORY: 52 years old, female; Pain; Chest pain; Right-sided chest pain; Prior surgery; Surgery date: 6+ months; Surgery type: HX lung ca with rt upper lobectomy; Additional info: Rt sided chest pain TECHNIQUE: Axial computed tomographic angiography images of the chest with intravenous contrast using pulmonary embolism protocol. All CT scans at this facility use one or more dose reduction techniques, viz.: automated exposure control; ma/kV adjustment per patient size (including targeted exams where dose is matched to indication; i.e. head); or iterative reconstruction technique. MIP reconstructed images were created and reviewed. Coronal and sagittal reformatted images were created and reviewed. CONTRAST: 100 mL of visipaque 320 administered intravenously. COMPARISON: CT - ANGIO CHEST PE PROTOCOL 2017-03-23 15:09 FINDINGS: Pulmonary arteries: Unremarkable. No pulmonary embolism. Aorta: No acute findings. No thoracic aortic aneurysm. Lungs: Moderate centrilobular and paraseptal emphysematous changes are present. There is volume loss in the right hemithorax with scarring in the right posteromedial upper lobe. Linear scarlike density in the right lung base. Mild left lung base atelectasis. Postsurgical changes suggesting right upper lobectomy. No mass. Pleural space: Unremarkable. No significant effusion. No pneumothorax. Heart: Mild cardiomegaly. No significant pericardial effusion. No evidence of RV dysfunction. Bones/joints: No acute fracture. No dislocation. Soft tissues: Unremarkable. Lymph nodes: Stable soft tissue density in the right paratracheal, precarinal and hilar regions. Soft tissue density again surrounds the right mainstem bronchus. Stable right hilar and infrahilar calcifications. IMPRESSION: Stable findings compared to the prior study. No evidence of pulmonary embolism. Postoperative changes in the right upper lobe with scarring. Moderate emphysema.
[2017-08-23] MEDS ORDERED: Albuterol-Ipratrop 3 mg / 0.5 (3 ml) UD IH PRN (23:58)
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
[2017-08-24] MEDS ORDERED: oxyCODONE 20 mg Immediate Release Tab PO STA (01:42)
[2017-08-24 01:44] LABS: VENOUS BLOOD GAS BASE EXCESS 3.6 mmol/L (0.0-2.0); VENOUS BLOOD GAS PO2 37 mm/Hg (30-55); VENOUS BLOOD PH 7.32 (7.32-7.43)
[2017-08-24] MEDS: Albuterol-Ipratrop 3 mg / 0.5 (3 ml) UD IH SCH ×2 (03:25→08:23)
[2017-08-24 03:58] VITALS: BMI 37.2
[2017-08-24 05:40] LABS: BARBITURATES, UR NEGATIVE (NEGATIVE); BENZODIAZEPINES, UR NEGATIVE (NEGATIVE); OPIATES, UR POSITIVE (NEGATIVE); PHENCYCLIDINE, UR NEGATIVE (NEGATIVE)
[2017-08-24] MEDS ORDERED: Pantoprazole 40 mg EC Tab PO SCH (06:00)
[2017-08-24 06:46] LABS: VENOUS BLOOD GAS BASE EXCESS 3.1 mmol/L (0.0-2.0); VENOUS BLOOD GAS PO2 51 mm/Hg (30-55); VENOUS BLOOD PH 7.34 (7.32-7.43)
[2017-08-24 06:55] VITALS: RESP 20; TEMP 98.5; O2SAT 97
[2017-08-24 07:20] LABS: ALB/GLOB RATIO 1.4 (1.1-1.8); ALBUMIN 3.5 g/dL (3.0-4.8); ALT/SGPT 44 U/L (7-56); AST/SGOT 28 U/L (14-36); BLOOD UREA NITROGEN 15 mg/dL (7-21); CALCIUM 8.8 mg/dL (8.4-10.5); GFR AFRICAN-AMERICAN > 60; GFR NON-AFRICAN AMERICAN 58
[2017-08-24 07:25] LABS: TROPONIN I < 0.01 ng/mL
[2017-08-24] MEDS ORDERED: oxyCODONE 30 mg Immediate Release Tab PO ONE (07:44)
[2017-08-24 07:56] LABS: BASO # 0.01 K/mm3 (0.0-2.0); BASO % 0.1 % (0.0-3.0); EOS % 0.1 % (1.5-5.0); GRAN # 6.49 (1.4-6.5); GRAN % 69.3 % (50.0-68.0); HEMOGLOBIN 11.8 g/dL (12.0-16.0); LYMPH # 1.9 (1.2-3.4); LYMPH % 20.3 % (22.0-35.0); MEAN CELL VOLUME 86.8 fl (80.0-105.0); MEAN CORPUSCULAR HEMOGLOBIN 28.4 pg (25.0-35.0); MEAN CORPUSCULAR HGB CONC 32.7 g/dl (31.0-37.0); MEAN PLATELET VOLUME 9.6 fl (7.0-11.0); MONO % 10.2 % (1.0-6.0); RBC 4.16 10^6/uL (3.5-6.1); RED CELL DISTRIBUTION WIDTH 14.8 % (11.5-14.5); WHITE BLOOD COUNT 9.4 10^3/ul (4.5-11.0)
--- NOTE | 2017-08-24 08:04 | RAD ---
HISTORY: shortness of breath and cough with sputum COMPARISON: 03/23/2017 FINDINGS: LUNGS: No active pulmonary disease. PLEURA: No significant pleural effusion identified, no pneumothorax apparent. CARDIOVASCULAR: Normal. OSSEOUS STRUCTURES: No significant abnormalities. VISUALIZED UPPER ABDOMEN: Normal. OTHER FINDINGS: None. IMPRESSION: No active disease.
--- NOTE | 2017-08-24 09:36 | US ---
HISTORY: Leg pain and swelling. Evaluate for DVT PHYSICIAN(S): Roberto Schwarz MD. TECHNIQUE: Duplex sonography and color-flow Doppler with graded compression were used to evaluate the deep venous systems of both lower extremities. FINDINGS: The visualized deep venous systems of both lower extremities are sonographically normal and compressible. Normal wave forms and augmentation are seen. There is no sonographic evidence for deep venous thrombosis in the visualized segments of both lower extremities. IMPRESSION: No sonographic evidence for deep venous thrombosis in the visualized segments of both lower extremities.
[2017-08-24] MEDS ORDERED: Divalproex 250 mg DR (BID formulation) PO SCH (10:00)
[2017-08-24] MEDS ORDERED: Tiotropium 18 mcg Cap For Inhalation INH SCH (10:00)
[2017-08-24 11:01] VITALS: PULSE 85
[2017-08-24 11:09] VITALS: BP 128/88
--- NOTE | 2017-08-24 11:37 | CP.PCM.CON ---
History of Present Illness - History of Present Illness History of Present Illness: Denies chest pain,denies shortness of breath, feels better Reason for consult:Cardiac evaluation, Chest pain HISTORY OF PRESENT ILLNESS: A 52 year old female who came to the ER due to complaints of left sided chest pain that radiates to her arm. she has history of right squamous cell lung cancer with upper lobe lobectomy with chemotherapy. History of pulmonary embolism, COPD,angina, illicit drug user, current smoker. Seen and examined by me and Dr. Guy Review of Systems - Constitutional Additional comments: history of falls - EENT Additional comments: denies problems - Cardiovascular Additional comments: chest pain radiating to arm, pain free now - Respiratory Additional comments: denies shortness of breath now, history of asthma,COPD,emphysema,pneumonia, sleep apnea - Gastrointestinal Additional comments: denies melena, nausea,vomiting - Genitourinary Additional comments: denies any problems - Neurological Neurological: Dizziness - Psychiatric Additional comments: denies any problems - Hematologic/Lymphatic Hematologic: As Per HPI Additional comments: history of DVT/PE Past Patient History - Infectious Disease Hx of Infectious Diseases: None - Tetanus Immunizations Tetanus Immunization: Unknown - Past Medical History & Family History Past Medical History?: Yes - Past Social History Smoking Status: Light Smoker < 10 Cigarettes Daily - CARDIAC Hx Cardiac Disorders: Yes Hx Angina: Yes - PULMONARY Hx Respiratory Disorders: Yes Hx Asthma: Yes Hx Chronic Obstructive Pulmonary Disease (COPD): Yes Hx Emphysema: Yes Hx Pneumonia: Yes Hx Sleep Apnea: Yes - NEUROLOGICAL Hx Neurological Disorder: Yes Hx Dizziness: Yes - HEENT Hx HEENT Problems: No - RENAL Hx Chronic Kidney Disease: No - ENDOCRINE/METABOLIC Hx Endocrine Disorders: No - HEMATOLOGICAL/ONCOLOGICAL Hx Blood Disorders: Yes (DVT/PE) Hx Cancer: Yes (LUNG CA) Hx Chemotherapy: Yes - INTEGUMENTARY Hx Dermatological Problems: No - MUSCULOSKELETAL/RHEUMATOLOGICAL Hx Falls: Yes - GASTROINTESTINAL Hx Gastrointestinal Disorders: No - GENITOURINARY/GYNECOLOGICAL Hx Genitourinary Disorders: No Hx Urinary Tract Infection: Yes - PSYCHIATRIC Hx Substance Use: No - SURGICAL HISTORY Hx Surgeries: Yes (R UPPER LOBE LOBECTOMY, LCW PORT, TUBAL LIGATION) Hx Cardiac Catheterization: No - ANESTHESIA Hx Anesthesia: Yes Hx Anesthesia Reactions: No Hx Malignant Hyperthermia: No Meds Allergies/Adverse Reactions: Allergies Allergy/AdvReac Type Severity Reaction Status Date / Time aspirin Allergy Severe ANAPHYLAXIS Verified 03/23/17 13:29 Penicillins Allergy Severe ANAPHYLAXIS Verified 03/23/17 13:29 Physical Exam - Constitutional Appears: No Acute Distress - Head Exam Head Exam: NORMAL INSPECTION - Eye Exam Eye Exam: Normal appearance - ENT Exam ENT Exam: Mucous Membranes Moist - Neck Exam Neck exam: Positive for: Normal Inspection - Respiratory Exam Respiratory Exam: Clear to Auscultation Bilateral, NORMAL BREATHING PATTERN - Cardiovascular Exam Cardiovascular Exam: +S1, +S2 Additional comments: No JVD - GI/Abdominal Exam GI & Abdominal Exam: Normal Bowel Sounds, Soft - Extremities Exam Extremities exam: Positive for: normal capillary refill, normal inspection - Neurological Exam Neurological exam: Alert, Oriented x3 - Psychiatric Exam Psychiatric exam: Normal Affect, Normal Mood - Skin Skin Exam: Intact, Normal Color, Warm Results - Vital Signs Recent Vital Signs: Last Vital Signs Temp 98.5 F 08/24/17 06:00 Pulse 85 08/24/17 10:00 Resp 20 08/24/17 06:00 BP 128/88 08/24/17 09:00 Pulse Ox 97 08/24/17 09:00 - Labs Result Diagrams: 08/24/17 06:34 08/24/17 06:34 Labs: Laboratory Results - last 24 hr 08/24/17 08/24/17 08/24/17 01:08 01:55 04:45 WBC RBC Hgb Hct MCV MCH MCHC RDW Plt Count MPV Gran % Lymph % (Auto) [place] % (Auto) Eos % (Auto) Baso % (Auto) Gran # Lymph # (Auto) [place] # (Auto) Eos # (Auto) Baso # (Auto) pO2 37 VBG pH 7.32 VBG pCO2 61.0 H VBG HCO3 31.4 H VBG Total CO2 33.3 H VBG O2 Sat (Calc) 72.7 H VBG Base Excess 3.6 H VBG Potassium 3.8 Sodium 140.0 Chloride 106.0 Glucose 149 H Lactate 2.2 H FiO2 21.0 Potassium Carbon Dioxide Anion Gap BUN Creatinine Est GFR ( Amer) Est GFR (Non-Af Amer) Random Glucose Calcium Phosphorus Magnesium Total Bilirubin AST ALT Alkaline Phosphatase Troponin I < 0.01 Total Protein Albumin Globulin Albumin/Globulin Ratio Venous Blood Potassium 3.8 Urine Opiates Screen Positive H Urine Methadone Screen Negative Ur Barbiturates Screen Negative Ur Phencyclidine Scrn Negative Ur Amphetamines Screen Negative U Benzodiazepines Scrn Negative U Oth Cocaine Metabols Positive H U Cannabinoids Screen Negative 08/24/17 08/24/17 08/24/17 06:34 06:34 06:34 WBC 9.4 RBC 4.16 Hgb 11.8 L Hct 36.1 MCV 86.8 MCH 28.4 MCHC 32.7 RDW 14.8 H Plt Count 224 MPV 9.6 Gran % 69.3 H Lymph % (Auto) 20.3 L [place] % (Auto) 10.2 H Eos % (Auto) 0.1 L Baso % (Auto) 0.1 Gran # 6.49 Lymph # (Auto) 1.9 [place] # (Auto) 1.0 H Eos # (Auto) 0.0 Baso # (Auto) 0.01 pO2 51 VBG pH 7.34 VBG pCO2 56.0 VBG HCO3 30.2 H VBG Total CO2 31.9 H VBG O2 Sat (Calc) 90.3 H VBG Base Excess 3.1 H VBG Potassium 3.6 Sodium 142 139.0 Chloride 104 107.0 Glucose 117 H Lactate 1.3 FiO2 21.0 Potassium 3.6 Carbon Dioxide 29 Anion Gap 12 BUN 15 Creatinine 1.0 Est GFR ( Amer) > 60 Est GFR (Non-Af Amer) 58 Random Glucose 114 H Calcium 8.8 Phosphorus 3.3 Magnesium 2.0 Total Bilirubin 0.1 L AST 28 ALT 44 Alkaline Phosphatase 59 Troponin I < 0.01 Total Protein 6.0 Albumin 3.5 Globulin 2.5 Albumin/Globulin Ratio 1.4 Venous Blood Potassium 3.6 Urine Opiates Screen Urine Methadone Screen Ur Barbiturates Screen Ur Phencyclidine Scrn Ur Amphetamines Screen U Benzodiazepines Scrn U Oth Cocaine Metabols U Cannabinoids Screen Assessment & Plan - Assessment and Plan (Free Text) Assessment: HISTORY OF PRESENT ILLNESS: A 52 year old female who came to the ER due to complaints of left sided chest pain that radiates to her arm. she has history of right squamous cell lung cancer with upper lobe lobectomy with chemotherapy. History of pulmonary embolism, COPD,angina, illicit drug user, current smoker. Plan: Rule out acute coronary syndrome Illicit drug user- positive for coccaine CT of chest negative for pulmonary embolism Troponin negative Will order ECHO to assess LV function Continue current medications Continue current treatment advise to stop smoking and use of coccaine Will follow up Thank you Dr. Limon for letting us participate in the care of Fallon Messina. - Date & Time Date: 08/24/17 Time: 08:30
--- NOTE | 2017-08-24 11:47 | CP.PCM.DIS ---
<PurviKaterin - Last Filed: 08/24/17 12:46> Provider - Provider Date of Admission: 08/23/17 23:46 Attending physician: Nola Limon MD Primary care physician: Marbin Casillas MD Consults: Cardio: Dr. Santoyo Time Spent in preparation of Discharge (in minutes): 25 Hospital Course - Lab Results Lab Results: Most Recent Lab Values WBC 9.4 10^3/ul (4.5-11.0) 08/24/17 06:34 RBC 4.16 10^6/uL (3.5-6.1) 08/24/17 06:34 Hgb 11.8 g/dL (12.0-16.0) L 08/24/17 06:34 Hct 36.1 % (36.0-48.0) 08/24/17 06:34 MCV 86.8 fl (80.0-105.0) 08/24/17 06:34 MCH 28.4 pg (25.0-35.0) 08/24/17 06:34 MCHC 32.7 g/dl (31.0-37.0) 08/24/17 06:34 RDW 14.8 % (11.5-14.5) H 08/24/17 06:34 Plt Count 224 10^3/uL (120.0-450.0) 08/24/17 06:34 MPV 9.6 fl (7.0-11.0) 08/24/17 06:34 Gran % 69.3 % (50.0-68.0) H 08/24/17 06:34 Lymph % (Auto) 20.3 % (22.0-35.0) L 08/24/17 06:34 [place] % (Auto) 10.2 % (1.0-6.0) H 08/24/17 06:34 Eos % (Auto) 0.1 % (1.5-5.0) L 08/24/17 06:34 Baso % (Auto) 0.1 % (0.0-3.0) 08/24/17 06:34 Gran # 6.49 (1.4-6.5) 08/24/17 06:34 Lymph # (Auto) 1.9 (1.2-3.4) 08/24/17 06:34 [place] # (Auto) 1.0 (0.1-0.6) H 08/24/17 06:34 Eos # (Auto) 0.0 (0.0-0.7) 08/24/17 06:34 Baso # (Auto) 0.01 K/mm3 (0.0-2.0) 08/24/17 06:34 PT 13.7 SECONDS (9.4-12.5) H 08/23/17 20:10 INR 1.20 (0.93-1.08) H 08/23/17 20:10 APTT 30.8 Seconds (25.1-36.5) 08/23/17 20:10 pO2 51 mm/Hg (30-55) 08/24/17 06:34 VBG pH 7.34 (7.32-7.43) 08/24/17 06:34 VBG pCO2 56.0 (40-60) 08/24/17 06:34 VBG HCO3 30.2 mmol/l (21-28) H 08/24/17 06:34 VBG Total CO2 31.9 mmol.L (22-28) H 08/24/17 06:34 VBG O2 Sat (Calc) 90.3 % (40-65) H 08/24/17 06:34 VBG Base Excess 3.1 mmol/L (0.0-2.0) H 08/24/17 06:34 VBG Potassium 3.6 mmol/L (3.6-5.2) 08/24/17 06:34 Sodium 139.0 mmol/L (132-148) 08/24/17 06:34 Chloride 107.0 mmol/L (98-107) 08/24/17 06:34 Glucose 117 mg/dl (65-105) H 08/24/17 06:34 Lactate 1.3 mmol/L (0.7-2.1) 08/24/17 06:34 FiO2 21.0 % 08/24/17 06:34 Sodium 142 mmol/L (132-148) 08/24/17 06:34 Potassium 3.6 mmol/L (3.6-5.0) 08/24/17 06:34 Chloride 104 mmol/L (98-107) 08/24/17 06:34 Carbon Dioxide 29 mmol/L (21-33) 08/24/17 06:34 Anion Gap 12 (10-20) 08/24/17 06:34 BUN 15 mg/dL (7-21) 08/24/17 06:34 Creatinine 1.0 mg/dl (0.7-1.2) 08/24/17 06:34 Est GFR ( Amer) > 60 08/24/17 06:34 Est GFR (Non-Af Amer) 58 08/24/17 06:34 Random Glucose 114 mg/dL (70-110) H 08/24/17 06:34 Calcium 8.8 mg/dL (8.4-10.5) 08/24/17 06:34 Phosphorus 3.3 mg/dL (2.5-4.5) 08/24/17 06:34 Magnesium 2.0 mg/dL (1.7-2.2) 08/24/17 06:34 Total Bilirubin 0.1 mg/dL (0.2-1.3) L 08/24/17 06:34 AST 28 U/L (14-36) 08/24/17 06:34 ALT 44 U/L (7-56) 08/24/17 06:34 Alkaline Phosphatase 59 U/L (38-126) 08/24/17 06:34 Lactate Dehydrogenase 445 U/L (333-699) 08/23/17 20:10 Total Creatine Kinase 56 U/L (35-230) 08/23/17 20:10 Troponin I < 0.01 ng/mL 08/24/17 06:34 NT-Pro-B Natriuret Pep 43.5 pg/mL (0-450) 08/23/17 20:10 Total Protein 6.0 g/dL (5.8-8.3) 08/24/17 06:34 Albumin 3.5 g/dL (3.0-4.8) 08/24/17 06:34 Globulin 2.5 gm/dL 08/24/17 06:34 Albumin/Globulin Ratio 1.4 (1.1-1.8) 08/24/17 06:34 Venous Blood Potassium 3.6 mmol/L (3.6-5.2) 08/24/17 06:34 Urine Opiates Screen Positive (NEGATIVE) H 08/24/17 04:45 Urine Methadone Screen Negative (NEGATIVE) 08/24/17 04:45 Ur Barbiturates Screen Negative (NEGATIVE) 08/24/17 04:45 Ur Phencyclidine Scrn Negative (NEGATIVE) 08/24/17 04:45 Ur Amphetamines Screen Negative (NEGATIVE) 08/24/17 04:45 U Benzodiazepines Scrn Negative (NEGATIVE) 08/24/17 04:45 U Oth Cocaine Metabols Positive (NEGATIVE) H 08/24/17 04:45 U Cannabinoids Screen Negative (NEGATIVE) 08/24/17 04:45 - Hospital Course Hospital Course: This is a 52yo female with PMH of PE on xeralto, COPD, tobacco abuse (still smokes), chronic pain on opiates, current cocaine abuse, R significant for R squamous lung CA s/p resection s/p completed radiation s/p chemo with recurrence who came in for substernal chest pain to rule out ACS. Troponin was negative x 3. EKG was done which showed NSR and CTA was done which was negative for PE. LE dopplers were negative for DVT. Patient was found to be positive for cocaine. She was combative upon interview and requesting for pain medication despite resting comfortably in bed. Patient was positive for cocaine and opiates on UDS. It was recommended to stop using drugs which can also cause chest pain. She was also advised to stop smoking despite having history of lung cancer. She will follow up with Dr. Beck as outpatient. Patient was angry and requesting more pain medication. She decided to elope and refused to sign the AMA form. Cardiology was unable to evaluate her. - Date & Time of H&P Date of H&P: 08/24/17 Time of H&P: 05:00 Discharge Exam - Head Exam Head Exam: ATRAUMATIC, NORMAL INSPECTION, NORMOCEPHALIC - Eye Exam Eye Exam: Normal appearance, PERRL Pupil Exam: NORMAL ACCOMODATION, PERRL - ENT Exam ENT Exam: Mucous Membranes Moist - Neck Exam Additional comments: L sided portocath clean and dry - Respiratory Exam Respiratory Exam: Clear to PA & Lateral, NORMAL BREATHING PATTERN, UNREMARKABLE. absent: Rhonchi, Wheezes - Cardiovascular Exam Cardiovascular Exam: REGULAR RHYTHM, +S1, +S2. absent: Gallop, Rubs, Systolic Murmur - GI/Abdominal Exam GI & Abdominal Exam: Normal Bowel Sounds, Soft, Unremarkable. absent: Mass, Rebound, Rigid, Tenderness - Extremities Exam Extremities exam: normal inspection - Neurological Exam Neurological exam: Alert, CN II-XII Intact, Normal Gait, Oriented x3 - Psychiatric Exam Psychiatric exam: Agitated - Skin Skin Exam: Dry, Intact, Warm Discharge Plan - Follow Up Plan Condition: GUARDED Disposition: AGAINST MEDICAL ADVICE Referrals: Marbin Casillas MD [Primary Care Provider] - <Nola Limon - Last Filed: 08/24/17 13:28> Provider - Provider Date of Admission: 08/23/17 23:46 Attending physician: Nola Limon MD Primary care physician: Marbin Casillas MD Time Spent in preparation of Discharge (in minutes): 35 Hospital Course - Lab Results Lab Results: Most Recent Lab Values WBC 9.4 10^3/ul (4.5-11.0) 08/24/17 06:34 RBC 4.16 10^6/uL (3.5-6.1) 08/24/17 06:34 Hgb 11.8 g/dL (12.0-16.0) L 08/24/17 06:34 Hct 36.1 % (36.0-48.0) 08/24/17 06:34 MCV 86.8 fl (80.0-105.0) 08/24/17 06:34 MCH 28.4 pg (25.0-35.0) 08/24/17 06:34 MCHC 32.7 g/dl (31.0-37.0) 08/24/17 06:34 RDW 14.8 % (11.5-14.5) H 08/24/17 06:34 Plt Count 224 10^3/uL (120.0-450.0) 08/24/17 06:34 MPV 9.6 fl (7.0-11.0) 08/24/17 06:34 Gran % 69.3 % (50.0-68.0) H 08/24/17 06:34 Lymph % (Auto) 20.3 % (22.0-35.0) L 08/24/17 06:34 [place] % (Auto) 10.2 % (1.0-6.0) H 08/24/17 06:34 Eos % (Auto) 0.1 % (1.5-5.0) L 08/24/17 06:34 Baso % (Auto) 0.1 % (0.0-3.0) 08/24/17 06:34 Gran # 6.49 (1.4-6.5) 08/24/17 06:34 Lymph # (Auto) 1.9 (1.2-3.4) 08/24/17 06:34 [place] # (Auto) 1.0 (0.1-0.6) H 08/24/17 06:34 Eos # (Auto) 0.0 (0.0-0.7) 08/24/17 06:34 Baso # (Auto) 0.01 K/mm3 (0.0-2.0) 08/24/17 06:34 PT 13.7 SECONDS (9.4-12.5) H 08/23/17 20:10 INR 1.20 (0.93-1.08) H 08/23/17 20:10 APTT 30.8 Seconds (25.1-36.5) 08/23/17 20:10 pO2 51 mm/Hg (30-55) 08/24/17 06:34 VBG pH 7.34 (7.32-7.43) 08/24/17 06:34 VBG pCO2 56.0 (40-60) 08/24/17 06:34 VBG HCO3 30.2 mmol/l (21-28) H 08/24/17 06:34 VBG Total CO2 31.9 mmol.L (22-28) H 08/24/17 06:34 VBG O2 Sat (Calc) 90.3 % (40-65) H 08/24/17 06:34 VBG Base Excess 3.1 mmol/L (0.0-2.0) H 08/24/17 06:34 VBG Potassium 3.6 mmol/L (3.6-5.2) 08/24/17 06:34 Sodium 139.0 mmol/L (132-148) 08/24/17 06:34 Chloride 107.0 mmol/L (98-107) 08/24/17 06:34 Glucose 117 mg/dl (65-105) H 08/24/17 06:34 Lactate 1.3 mmol/L (0.7-2.1) 08/24/17 06:34 FiO2 21.0 % 08/24/17 06:34 Sodium 142 mmol/L (132-148) 08/24/17 06:34 Potassium 3.6 mmol/L (3.6-5.0) 08/24/17 06:34 Chloride 104 mmol/L (98-107) 08/24/17 06:34 Carbon Dioxide 29 mmol/L (21-33) 08/24/17 06:34 Anion Gap 12 (10-20) 08/24/17 06:34 BUN 15 mg/dL (7-21) 08/24/17 06:34 Creatinine 1.0 mg/dl (0.7-1.2) 08/24/17 06:34 Est GFR ( Amer) > 60 08/24/17 06:34 Est GFR (Non-Af Amer) 58 08/24/17 06:34 Random Glucose 114 mg/dL (70-110) H 08/24/17 06:34 Calcium 8.8 mg/dL (8.4-10.5) 08/24/17 06:34 Phosphorus 3.3 mg/dL (2.5-4.5) 08/24/17 06:34 Magnesium 2.0 mg/dL (1.7-2.2) 08/24/17 06:34 Total Bilirubin 0.1 mg/dL (0.2-1.3) L 08/24/17 06:34 AST 28 U/L (14-36) 08/24/17 06:34 ALT 44 U/L (7-56) 08/24/17 06:34 Alkaline Phosphatase 59 U/L (38-126) 08/24/17 06:34 Lactate Dehydrogenase 445 U/L (333-699) 08/23/17 20:10 Total Creatine Kinase 56 U/L (35-230) 08/23/17 20:10 Troponin I < 0.01 ng/mL 08/24/17 06:34 NT-Pro-B Natriuret Pep 43.5 pg/mL (0-450) 08/23/17 20:10 Total Protein 6.0 g/dL (5.8-8.3) 08/24/17 06:34 Albumin 3.5 g/dL (3.0-4.8) 08/24/17 06:34 Globulin 2.5 gm/dL 08/24/17 06:34 Albumin/Globulin Ratio 1.4 (1.1-1.8) 08/24/17 06:34 Venous Blood Potassium 3.6 mmol/L (3.6-5.2) 08/24/17 06:34 Urine Opiates Screen Positive (NEGATIVE) H 08/24/17 04:45 Urine Methadone Screen Negative (NEGATIVE) 08/24/17 04:45 Ur Barbiturates Screen Negative (NEGATIVE) 08/24/17 04:45 Ur Phencyclidine Scrn Negative (NEGATIVE) 08/24/17 04:45 Ur Amphetamines Screen Negative (NEGATIVE) 08/24/17 04:45 U Benzodiazepines Scrn Negative (NEGATIVE) 08/24/17 04:45 U Oth Cocaine Metabols Positive (NEGATIVE) H 08/24/17 04:45 U Cannabinoids Screen Negative (NEGATIVE) 08/24/17 04:45 Discharge Plan - Follow Up Plan Patient education suggested?: Yes Attending/Attestation - Attestation I have personally seen and examined this patient.: Yes I have fully participated in the care of the patient.: Yes I have reviewed all pertinent clinical information, including history, physical exam and plan: Yes Notes (Text): 08/24/17 13:18 52 year old female with past medical history of PE on xarelto, COPD, chronic pain on opiates, lung cancer s/p resection, radiation, and chemo and history of substance abuse (cocaine) presented with complaint of chest pain. Cardiology evaluation was requested for chest pain evaluation. Serial cardiac enzymes were negative and ACS was ruled out. CT angio was negative for PE. LE dopplers was done with pending results to rule out DVT. Patient was seen and examined at bedside this morning. She appeared comfortable but was requested iv narcotics. Utox was positive for cocaine which she denied recent use of. She was counselled on risks of continued substance abuse (opiates/cocaine) and on smoking cessation. Patient mentioned she may sign out against medical advice and was explained the risks of signing out which she acknowledged but refused to sign form and walked out. She was advised to follow up with her pmd and oncologist. Nola Limon MD Hospitalist.
--- NOTE | 2017-08-24 13:02 | CARD ---
APPROVED REPORT EKG Measurement Heart [id number] <Conclusion> Normal sinus rhythm Normal ECG
--- NOTE | 2017-08-24 13:02 | CARD ---
APPROVED REPORT EKG Measurement Heart [id number] <Conclusion> Normal sinus rhythm Normal ECG
--- NOTE | 2017-08-25 01:29 | CON ---
DATE: 08/24/2017 REASON FOR THE CONSULTATION: Followup chest pain and cardiac evaluation. BRIEF CLINICAL HISTORY: This is a 52-year-old female with a past medical history significant for right lung squamous cell carcinoma, status post right lobe lobectomy, chemotherapy, now in remission, history of PE, was on Coumadin and Lovenox, and as of now patient is on Xarelto, history of COPD, came in with chest pain while taking a deep breath, right-sided atypical. So far troponin was negative. Denies any prior history of recent infection, chest pain on exertion, but complains of chest pain while taking a deep breath. Patient is on Xarelto, before patient was on Coumadin and Lovenox for history of DVT and PE, history of steroid as well. PAST MEDICAL HISTORY: Significant for lung CA, status post right lower lobe lobectomy on 07/2014 and on chemotherapy, history of COPD, history of hypertension, being followed by Dr. Beck. SOCIAL HISTORY: Active tobacco abuse use. Used to smoke 3-packets a day, now cut down to 4 to 5 cigarettes per day. Denies any history of alcohol abuse. PAST SURGICAL HISTORY: Significant for thoracotomy resection of right upper lobe on 07/2014, history of chemotherapy, history of radiation therapy. FAMILY HISTORY: Not significant. CURRENT MEDICATIONS: Risperdal, oxycodone, Xarelto, , Benadryl, albuterol, and Ventolin. REVIEW OF SYSTEMS: As per HPI. ALLERGIES: TO PENICILLIN AND ASPIRIN. PHYSICAL EXAMINATION: As follows: GENERAL: Height of the patient is 5 feet 9 inches, weight of the patient is 250 pounds, body mass index 36.9 kg/m2. VITAL SIGNS: Temperature afebrile, heart rate 85, blood pressure 120/88. HEENT: PERRLA. Extraocular muscles intact. NECK: Supple. No carotid bruits or thyromegaly. CHEST: Clear to auscultation. HEART: S1 and S2 regular. ABDOMEN: Soft. EXTREMITIES: Clubbing and cyanosis negative. LABORATORY DATA: As follows: WBC 9.4, hemoglobin 11.8, hematocrit 36.1, platelet count 224. Chemistry shows sodium 140, potassium 3.6, chloride 104, carbon dioxide 29, anion gap of 12, BUN 15, creatinine 1.0. Troponin remains negative. EKG shows normal sinus at a rate of 76. IMPRESSION: Atypical chest pain, diabetes, hypertension, hyperlipidemia, obesity, previous echo showed preserved LV function. RECOMMENDATION: We will get echo as an outpatient. Also get a stress test patient has atypical chest pain and troponin is negative. Patient is cleared for discharge from a cardiology point of view, but consider risk stratification with stress test as outpatient. Javed Guy MD
--- NOTE | 2017-08-25 08:47 | CARD ---
APPROVED REPORT EKG Measurement Heart [id number] [id number] <Conclusion> Normal sinus rhythm Normal ECG
== END 2017-08-24 11:21 | disposition left against medical advice (07) ==
LOC: ED 19:47 → ERH 23:46 → 2RNO 08-24 03:00
PROVIDERS: ADMIT Internal Medicine; ATTEND Internal Medicine
DX: R07.2 Precordial pain (principal); J43.9 Emphysema, unspecified; F14.10 Cocaine abuse, uncomplicated; G89.29 Other chronic pain; I20.9 Angina pectoris, unspecified; R06.00 Dyspnea, unspecified; M79.662 Pain in left lower leg; E66.9 Obesity, unspecified; F17.210 Nicotine dependence, cigarettes, uncomplicated; Z79.891 Long term (current) use of opiate analgesic; Z86.711 Personal history of pulmonary embolism; Z92.3 Personal history of irradiation; Z85.118 Personal history of other malignant neoplasm of bronchus and lung; Z92.21 Personal history of antineoplastic chemotherapy; Z88.0 Allergy status to penicillin; Z86.718 Personal history of other venous thrombosis and embolism; Z68.36 Body mass index [BMI] 36.0-36.9, adult; Z79.02 Long term (current) use of antithrombotics/antiplatelets; Z87.01 Personal history of pneumonia (recurrent); Z88.6 Allergy status to analgesic agent; Z90.2 Acquired absence of lung [part of]
CPT/HCPCS: 71045; 71275; 80053; 80324; 80345; 80346; 80349; 80353; 80358; 80361; 82550; 82803; 83615; 83735; 83880; 83992; 84100; 84484; 85025; 85610; 85730; 87040; 93005; 93970; 94640; 94760; 96374; 96376; 99285; G0378; J2270; Q9967

== ENCOUNTER 2018-01-08 18:54 | Inpatient (IN) | payer MEDICAID ==
[2018-01-08] MEDS ORDERED: Albuterol-Ipratrop 3 mg / 0.5 (3 ml) UD ONE (19:23)
[2018-01-08] MEDS: Albuterol-Ipratrop 3 mg / 0.5 (3 ml) UD IH SCH ×3 (19:30→20:00)
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
[2018-01-08 20:47] LABS: VENOUS BLOOD GAS PO2 33 mm/Hg (30-55)
[2018-01-08 20:48] LABS: BASO # 0.01 K/mm3 (0.0-2.0); BASO % 0.2 % (0.0-3.0); EOS # 0.1 (0.0-0.7); GRAN # 3.47 (1.4-6.5); GRAN % 58.9 % (50.0-68.0); HEMOGLOBIN 12.3 g/dL (12.0-16.0); LYMPH % 33.1 % (22.0-35.0); MEAN CORPUSCULAR HEMOGLOBIN 28.5 pg (25.0-35.0); MEAN CORPUSCULAR HGB CONC 32.7 g/dl (31.0-37.0); MEAN PLATELET VOLUME 8.8 fl (7.0-11.0); MONO # 0.4 (0.1-0.6); MONO % 6.8 % (1.0-6.0); RBC 4.32 10^6/uL (3.5-6.1); RED CELL DISTRIBUTION WIDTH 14.3 % (11.5-14.5); WHITE BLOOD COUNT 5.9 10^3/ul (4.5-11.0)
[2018-01-08] MEDS ORDERED: oxyCODONE 30 mg Immediate Release Tab PO STA (21:33)
[2018-01-08 21:34] LABS: B-TYPE NATRIURETIC PEPTIDE 82.5 pg/mL (0-450); TROPONIN I < 0.01 ng/mL
[2018-01-08 21:35] LABS: ALB/GLOB RATIO 1.3 (1.1-1.8); ALBUMIN 3.5 g/dL (3.0-4.8); ALT/SGPT 36 U/L (7-56); AST/SGOT 23 U/L (14-36); BLOOD UREA NITROGEN 15 mg/dL (7-21); CALCIUM 8.8 mg/dL (8.4-10.5); GFR NON-AFRICAN AMERICAN 58
[2018-01-09] MEDS ORDERED: Divalproex 250 mg DR (BID formulation) PO ONE (00:15)
[2018-01-09] MEDS ORDERED: Albuterol-Ipratrop 3 mg / 0.5 (3 ml) UD IH PRN (02:15)
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
[2018-01-09 02:40] LABS: URINE APPEARANCE CLEAR (CLEAR); URINE BILIRUBIN NEGATIVE (NEGATIVE); URINE BLOOD NEGATIVE (NEGATIVE); URINE COLOR YELLOW (YELLOW); URINE GLUCOSE (UA) NEGATIVE (NEGATIVE); URINE LEUKOCYTE ESTERASE TRACE Leu/uL (NEGATIVE); URINE PROTEIN TRACE mg/dL (<30 mg/dL); URINE UROBILINOGEN 0.2 E.U./dL (<1 E.U./dL)
[2018-01-09 02:58] LABS: URINE BACTERIA SMALL (NEG); URINE RBC 0 - 2 /hpf (0-2)
[2018-01-09] MEDS: Albuterol-Ipratrop 3 mg / 0.5 (3 ml) UD IH SCH ×7 (04:00→23:50)
[2018-01-09] MEDS: oxyCODONE 30 mg Immediate Release Tab PO PRN ×4 (04:36→23:48)
[2018-01-09 05:37] LABS: GRAN # 6.48 (1.4-6.5); GRAN % 87.7 % (50.0-68.0); HEMOGLOBIN 12.3 g/dL (12.0-16.0); LYMPH # 0.9 (1.2-3.4); LYMPH % 11.8 % (22.0-35.0); MEAN CELL VOLUME 87.2 fl (80.0-105.0); MEAN CORPUSCULAR HEMOGLOBIN 28.5 pg (25.0-35.0); MEAN CORPUSCULAR HGB CONC 32.7 g/dl (31.0-37.0); MONO % 0.5 % (1.0-6.0); RBC 4.31 10^6/uL (3.5-6.1); RED CELL DISTRIBUTION WIDTH 14.4 % (11.5-14.5); WHITE BLOOD COUNT 7.4 10^3/ul (4.5-11.0)
[2018-01-09 05:58] LABS: ALB/GLOB RATIO 1.3 (1.1-1.8); ALBUMIN 3.8 g/dL (3.0-4.8); ALT/SGPT 29 U/L (7-56); AST/SGOT 19 U/L (14-36); BLOOD UREA NITROGEN 13 mg/dL (7-21); CALCIUM 9.2 mg/dL (8.4-10.5); GFR NON-AFRICAN AMERICAN > 60
[2018-01-09] MEDS ORDERED: Albuterol-Ipratrop 3 mg / 0.5 (3 ml) UD IH SCH (08:00)
--- NOTE | 2018-01-09 08:49 | RAD ---
Date of service: 01/08/2018 HISTORY: SOB COMPARISON: 01/05/2018 FINDINGS: LUNGS: No active pulmonary disease. PLEURA: No significant pleural effusion identified, no pneumothorax apparent. CARDIOVASCULAR: Normal. OSSEOUS STRUCTURES: No significant abnormalities. VISUALIZED UPPER ABDOMEN: Normal. OTHER FINDINGS: Left-sided Port-A-Cath. IMPRESSION: No active disease.
--- NOTE | 2018-01-09 08:51 | RAD ---
Date of service: 01/09/2018 HISTORY: COPD COMPARISON: 01/08/2018. FINDINGS: The left-sided MediPort terminates in the SVC. LUNGS: There is low lung volume on the right and retraction of the right hilum in keeping with postsurgical changes. There is some linear fibrosis in the right upper lobe. The lungs are hyperinflated and there is peribronchial thickening with chronic changes in both lungs. There is linear scarring in the right lower lobe and resultant persistent elevation of the right hemidiaphragm. PLEURA: No significant pleural effusion identified, no pneumothorax apparent. CARDIOVASCULAR: Normal. OSSEOUS STRUCTURES: No significant abnormalities. VISUALIZED UPPER ABDOMEN: Normal. OTHER FINDINGS: None. IMPRESSION: No acute findings. COPD.
[2018-01-09] MEDS ORDERED: MethylPREDNISolone 40 mg Vial IVP SCH (10:00)
--- NOTE | 2018-01-09 10:36 | CARD ---
APPROVED REPORT Date of service: 01/08/2018 EKG Measurement Heart [id number] 140P85 [id number] <Conclusion> Sinus rhythm with marked sinus arrhythmia Otherwise normal ECG
[2018-01-09] MEDS: MethylPREDNISolone 40 mg Vial IVP SCH ×3 (10:38→23:59)
[2018-01-09] MEDS: Arformoterol 15 mcg/2 ml Inh Sol IH SCH ×2 (11:33→19:39)
[2018-01-09] MEDS: Divalproex 250 mg DR (BID formulation) PO SCH ×2 (11:39→18:13)
[2018-01-09] MEDS: Budesonide 0.25 mg/2 ml Inhal Susp UD IH SCH ×2 (11:42→19:39)
[2018-01-09 13:52] VITALS: BMI 34.8
[2018-01-09] MEDS ORDERED: Pneumococcal 23-Valent Vaccine IM ONE (13:52)
[2018-01-09] MEDS: guaiFENesin 600 mg ER Tab PO SCH ×2 (19:56→20:02)
[2018-01-10 02:19] LABS: OPIATES, UR NEGATIVE (NEGATIVE)
[2018-01-10 02:56] LABS: BARBITURATES, UR NEGATIVE (NEGATIVE); BENZODIAZEPINES, UR NEGATIVE (NEGATIVE); PHENCYCLIDINE, UR NEGATIVE (NEGATIVE)
[2018-01-10] MEDS: Albuterol-Ipratrop 3 mg / 0.5 (3 ml) UD IH SCH ×5 (04:22→21:00)
[2018-01-10] MEDS: oxyCODONE 30 mg Immediate Release Tab PO PRN ×4 (06:11→23:57)
[2018-01-10 06:20] LABS: GRAN # 10.79 (1.4-6.5); GRAN % 89.4 % (50.0-68.0); HEMOGLOBIN 11.5 g/dL (12.0-16.0); LYMPH # 0.8 (1.2-3.4); LYMPH % 6.6 % (22.0-35.0); MEAN CELL VOLUME 87.6 fl (80.0-105.0); MEAN CORPUSCULAR HEMOGLOBIN 28.5 pg (25.0-35.0); MEAN CORPUSCULAR HGB CONC 32.5 g/dl (31.0-37.0); MONO # 0.5 (0.1-0.6); RBC 4.04 10^6/uL (3.5-6.1); RED CELL DISTRIBUTION WIDTH 14.7 % (11.5-14.5); WHITE BLOOD COUNT 12.1 10^3/ul (4.5-11.0)
[2018-01-10 06:56] LABS: ALB/GLOB RATIO 1.4 (1.1-1.8); ALBUMIN 3.8 g/dL (3.0-4.8); ALT/SGPT 40 U/L (7-56); AST/SGOT 25 U/L (14-36); BLOOD UREA NITROGEN 15 mg/dL (7-21); GFR NON-AFRICAN AMERICAN 58
[2018-01-10] MEDS: Budesonide 0.25 mg/2 ml Inhal Susp UD IH SCH ×2 (07:25→21:00)
[2018-01-10] MEDS: Arformoterol 15 mcg/2 ml Inh Sol IH SCH ×2 (07:25→21:00)
[2018-01-10 07:38] LABS: TROPONIN I < 0.01 ng/mL
[2018-01-10] MEDS: Divalproex 250 mg DR (BID formulation) PO SCH ×2 (09:03→18:24)
[2018-01-10] MEDS: guaiFENesin 600 mg ER Tab PO SCH ×2 (09:04→18:23)
[2018-01-10] MEDS: MethylPREDNISolone 40 mg Vial IVP SCH ×3 (09:05→23:54)
[2018-01-10] MEDS: levoFLOXacin 750 mg in D5W 750 MG/150 ML BAG IVPB SCH (12:25)
--- NOTE | 2018-01-10 12:53 | CON ---
DATE: 01/10/2018 HISTORY OF PRESENT ILLNESS: This is a 52-year-old lady who is an near active- smoker (she quit few days ago, reportedly) and chronic cocaine abuser with history of lung and esophageal cancer, status post chemotherapy and resection (right upper lobectomy followed up by radiation therapy last year), COPD and PE (on Xarelto), who was recently in the hospital for presumed COPD exacerbation and was discharged after some improvement in her symptoms. She came again with dry cough, shortness of breath and decrease in tolerance for physical exertion. The patient is being followed by Dr. Beck for oncological problem and reportedly was scheduled to get PET scan done after recent discharge. She also endorses 15-pound unintentional weight loss over the past 2 months associated with decreased appetite. PAST MEDICAL HISTORY: COPD, pulmonary embolism, osteoarthritis, schizoaffective disorder, lung and esophageal cancer (status post chemotherapy in 2016 after right upper lobectomy and radiation therapy last year). FAMILY HISTORY: Noncontributory. SOCIAL HISTORY: The patient just quit smoking; however, used to be smoking for many years and quit only a few days ago. No alcohol or illicit drug abuse. MEDICATIONS AT HOME: Risperidone, prednisone, Percocet, Robitussin, Spiriva, Xarelto, Breo Ellipta, Depakote, Z-Garret DuoNeb. REVIEW OF SYSTEMS: Review of 12-organ systems other than mentioned in the history of present illness is negative. ALLERGIES: ASPIRIN AND PENICILLINS. PHYSICAL EXAMINATION: VITAL SIGNS: Temperature 97.8, blood pressure 132/76, respiratory rate 20, oxygen saturation 100% on 2 L nasal cannula. ENT: Head and neck atraumatic. LUNGS: Clear to auscultation bilaterally. HEART: Regular rate and rhythm. S1 and S2 normal. ABDOMEN: Soft, nontender and nondistended. MUSCULOSKELETAL: No C/C/E. NEURO: The patient moves all extremities spontaneously. SKIN: Moist. PSYCH: The patient is alert, awake and oriented x3. LABORATORY DATA: WBC 12.1, hemoglobin 11.5, platelet count 252. Sodium 139, potassium 4.5, chloride 103, carbon dioxide 29, BUN 15, creatinine 1, glucose 150, AST 25, ALT 40, total bilirubin 0.3. Troponin x3 negative. ProBNP 82.5. Procalcitonin, blood culture and urine culture are pending. Urine for Legionella and Streptococcal antigen are pending as well. Of note, blood culture few days ago showed Corynebacterium, which reportedly appeared to be a contaminant. CURRENT MEDICATIONS IN THE HOSPITAL: DuoNeb every 4 hours, Brovana, Pulmicort, Depakote, Pepcid, levofloxacin, Solu-Medrol 30 mg IV every eight, nicotine patch, oxycodone p.r.n., Xarelto, risperidone. Chest x-ray: No active pulmonary disease; however a lot of chronic changes. Of note, chest x-ray may not be very sensitive for infiltrates/consolidation in the setting of community-acquired pneumonia. ASSESSMENT AND PLAN: This is a 52-year-old lady, who presented with dry cough, increased shortness of breath and decreased physical tolerance. We will proceed with treating her for COPD exacerbation, however will obtain CT chest with IV contrast to rule out other contributing factors, such as CAP/HAP, tumor recurrence, pulmonary complications of chronic cocaine abuse, We will proceed with levofloxacin, blood culture, urine culture, procalcitonin level and urine for Legionella and streptococcal antigen. We are going to get Infectious Disease Service on board to clarify further plan of action in regards to corynebacterium in the blood. I am a bit concerned about nagging dry cough/ coughing spells, which can be of multifactorial etiology and thus hopefully CT chest will help to figure out. Meanwhile, continue with ICS/LABA. I will get Dr. Beck on board as well and see if we can combine CT and PET scan as well. We will continue to target euvolemia, euglycemia, normothermia and oxygen saturation more than 90%. We will continue with deep venous thrombosis, gastrointestinal prophylaxes. Ld Henriquez MD MANAS
--- NOTE | 2018-01-10 13:04 | CP.PCM.PN ---
<Marek Floyd - Last Filed: 01/10/18 14:07> Subjective - Date & Time of Evaluation Date of Evaluation: 01/10/18 Time of Evaluation: 07:00 - Subjective Subjective: Marek Floyd PGY1 Medicine Progress Note for Dr. Tafoya Patient was seen and examined at bedside this morning. She was still complaining of shortness of breath; she said it has minimally improved. Patient still has cough. Patient denies fever, chills, chest pain, abdominal pain, n/v/d , frequency, urgency, dysuria, numbness and tingling of extremities. No fevers overnight; no other overnight changes. Vital signs stable. Explained to patient that she was positive on Utox for cocaine and encouraged to stop using it as it may also be contributing to her presentation. A full 12 point ROS was conducted and unremarkable except as stated above. Objective - Vital Signs/Intake and Output Vital Signs (last 24 hours): Temp Pulse Resp BP Pulse Ox 97.8 F 87 20 132/76 100 01/10/18 06:00 01/10/18 06:00 01/10/18 06:00 01/10/18 06:00 01/10/18 06:00 - Medications Medications: Current Medications Albuterol/Ipratropium (Duoneb 3 Mg/0.5 Mg (3 Ml) Ud) 3 ml IH [id number] [facility] Last Admin: 01/10/18 11:12 Dose: 3 ml Albuterol/Ipratropium (Duoneb 3 Mg/0.5 Mg (3 Ml) Ud) 3 ml IH Q2H PRN PRN Reason: Shortness of Breath Arformoterol Tartrate (Brovana) 15 mcg IH [id number] [facility] Last Admin: 01/10/18 07:25 Dose: 15 mcg Budesonide (Pulmicort Respules) 0.25 mg IH [id number] [facility] Last Admin: 01/10/18 07:25 Dose: 0.25 mg Divalproex Sodium (Depakote Dr (*Bid*)) 250 mg PO BID [facility] PRN Reason: Protocol Last Admin: 01/10/18 09:03 Dose: 250 mg Famotidine (Pepcid) 40 mg PO HS [facility] Last Admin: 01/09/18 21:28 Dose: 40 mg Guaifenesin (Mucinex La) 600 mg PO BID [facility] Last Admin: 01/10/18 09:04 Dose: 600 mg Levofloxacin/Dextrose (Levaquin 750mg) 750 mg in 150 mls @ 100 mls/hr IVPB DAILY [facility] PRN Reason: Protocol Last Admin: 01/10/18 12:25 Dose: 100 mls/hr Methylprednisolone (Solu-Medrol) 30 mg IVP Q8H [facility] Last Admin: 01/10/18 09:05 Dose: 30 mg Nicotine (Nicoderm Cq) 1 patch TD DAILY [facility] Last Admin: 01/10/18 09:04 Dose: 1 patch Oxycodone HCl (Oxycodone Immediate Release Tab) 30 mg PO Q6H PRN PRN Reason: Pain, severe (8-10) Last Admin: 01/10/18 12:25 Dose: 30 mg Risperidone (Risperdal Tab) 0.5 mg PO BID [facility] PRN Reason: Protocol Last Admin: 01/10/18 09:04 Dose: 0.5 mg Rivaroxaban (Xarelto) 20 mg PO DAILY [facility] PRN Reason: Protocol Last Admin: 01/10/18 09:05 Dose: 20 mg - Constitutional Appears: No Acute Distress - Head Exam Head Exam: ATRAUMATIC, NORMAL INSPECTION, NORMOCEPHALIC - Eye Exam Eye Exam: EOMI, Normal appearance, PERRL - ENT Exam ENT Exam: Mucous Membranes Moist, Normal Exam - Neck Exam Neck Exam: Full ROM, Normal Inspection. absent: Lymphadenopathy - Respiratory Exam Respiratory Exam: Clear to Ausculation Bilateral, NORMAL BREATHING PATTERN. absent: Rales, Rhonchi, Wheezes - Cardiovascular Exam Cardiovascular Exam: REGULAR RHYTHM, +S1, +S2. absent: Murmur - GI/Abdominal Exam GI & Abdominal Exam: Soft, Normal Bowel Sounds. absent: Rigid, Tenderness - Extremities Exam Extremities Exam: Full ROM, Normal Capillary Refill, Normal Inspection. absent : Joint Swelling, Pedal Edema - Neurological Exam Neurological Exam: Alert, Awake, Oriented x3 Neuro motor strength exam: Left Upper Extremity: 5, Right Upper Extremity: 5, Left Lower Extremity: 5, Right Lower Extremity: 5 - Skin Skin Exam: Dry, Intact, Normal Color, Warm Assessment and Plan - Assessment and Plan (Free Text) Assessment: Patient is a 42 y/o F with PMHx of COPD, Multiple Pulmonary Embolisms (x4 PE; on xarelto and R-IVC filter placed 2 months ago), lung cancer s/p R-lobectomy ( 2014), OA, and schizoaffective disorder who presented to the ED on 01/09 for unresolved shortness of breath after she was discharged from the hospital 2 days ago. Patient is admitted to the floor for SOB 2/2 COPD Exacerbation. Plan: SOB 2/2 COPD exacerbation - c/w duonebs treatment q2 prn and q4H standing - c/w Pulmicort - c/w mucinex 600 mg PO BID - Appreciated pulmonology recs: levofloxacin, blood cx, urine cx, procal, legionella - solumedrol 30 mg IVP q8; taper as needed - ID consulted by pulm; f/u recs - Maintain SaO2 > 92% - CXR (01/09): no acute findings. COPD. Hx of Multiple Pulmonary Embolisms - c/w xarelto 20 mg PO daily Lung Cancer s/p R-lobectomy (2014) - oxycodone 30 mg PO q6H prn for pain control - Heme/onc consulted, f/u recs. Schizoaffective disorder - c/w Depakote - c/w risperdal GI ppx: pepcid 40 mg PO Dispo: Telemetry was discontinued. Patient will be monitored on the floor. Case was discussed and reviewed with Attending Physician, Dr. Tafoya. <Callie Tafoya R - Last Filed: 01/12/18 14:44> Objective - Vital Signs/Intake and Output Vital Signs (last 24 hours): Temp Pulse Resp BP Pulse Ox 98.5 F 70 20 100/50 L 96 01/12/18 06:00 01/12/18 06:00 01/12/18 06:00 01/12/18 06:00 01/12/18 06:00 Intake and Output: 01/12/18 01/12/18 06:59 18:59 Intake Total 600 Balance 600 - Medications Medications: Current Medications Albuterol/Ipratropium (Duoneb 3 Mg/0.5 Mg (3 Ml) Ud) 3 ml IH [id number] [facility] Last Admin: 01/12/18 11:28 Dose: 3 ml Albuterol/Ipratropium (Duoneb 3 Mg/0.5 Mg (3 Ml) Ud) 3 ml IH Q2H PRN PRN Reason: Shortness of Breath Arformoterol Tartrate (Brovana) 15 mcg IH [id number] [facility] Last Admin: 01/12/18 07:35 Dose: 15 mcg Budesonide (Pulmicort Respules) 0.25 mg IH [id number] [facility] Last Admin: 01/12/18 07:36 Dose: 0.25 mg Divalproex Sodium (Depakote Dr (*Bid*)) 250 mg PO BID [facility] PRN Reason: Protocol Last Admin: 01/12/18 10:13 Dose: 250 mg Famotidine (Pepcid) 40 mg PO HS [facility] Last Admin: 01/09/18 21:28 Dose: 40 mg Guaifenesin (Mucinex La) 600 mg PO BID [facility] Last Admin: 01/12/18 10:13 Dose: 600 mg Levofloxacin/Dextrose (Levaquin 750mg) 750 mg in 150 mls @ 100 mls/hr IVPB DAILY [facility] PRN Reason: Protocol Last Admin: 01/12/18 10:14 Dose: 100 mls/hr Methylprednisolone (Solu-Medrol) 30 mg IVP Q8H [facility] Last Admin: 01/12/18 08:57 Dose: 30 mg Nicotine (Nicoderm Cq) 1 patch TD DAILY [facility] Last Admin: 01/12/18 10:11 Dose: 1 patch Oxycodone HCl (Oxycodone Immediate Release Tab) 30 mg PO Q6H PRN PRN Reason: Pain, severe (8-10) Last Admin: 01/12/18 06:30 Dose: 30 mg Pantoprazole Sodium (Protonix Ec Tab) 40 mg PO 0600 [facility] Last Admin: 01/12/18 05:51 Dose: 40 mg Risperidone (Risperdal Tab) 0.5 mg PO BID [facility] PRN Reason: Protocol Last Admin: 01/12/18 10:14 Dose: 0.5 mg Rivaroxaban (Xarelto) 20 mg PO DAILY [facility] PRN Reason: Protocol Last Admin: 01/11/18 10:07 Dose: 20 mg - Labs Labs: 01/12/18 06:15 01/12/18 06:15 Attending/Attestation - Attestation I have personally seen and examined this patient.: Yes I have fully participated in the care of the patient.: Yes I have reviewed all pertinent clinical information, including history, physical exam and plan: Yes Notes (Text): Patient seen and examined by me at 9:45AM on 01/10/18 with resident. Case including HPI, physical exam, and assessment and plan discussed with resident. Agree with above with following additions/corrections. Patient is a 52-year-old female past medical history significant for COPD, pulmonary embolism status post IVC filter maintained on several to, lung cancer status post chemotherapy and lobectomy, osteoarthritis, schizoaffective disorder , and cocaine abuse that presented to the emergency room with worsening shortness of breath. Patient states she is feeling ok. Still feeling short of breath. Complains of a cough. Also with chest pain but states it is chronic. No nausea, vomiting, or abdominal pain. No headaches or dizziness. No fevers or chills. No dysuria. No diarrhea or constipation. Physical exam: General: Awake and alert sitting up in bed in no acute distress HEENT: Normocephalic, atraumatic. Extraocular muscles intact. Pupils equal reactive. No scleral icterus. Oropharynx is pink and moist. No pharyngeal erythema or exudate appreciated. Neck is supple. Cardiovascular: Normal rhythm. Normal S1, S2. No murmurs, rubs, or gallops appreciated Pulmonary: Normal respiratory effort. Decreased breath sounds throughout. No rhonchi, rales, or wheezing appreciated. Gastrointestinal: Soft, nondistended. Nontender. Positive bowel sounds all 4 quadrants, no guarding. Musculoskeletal: Moves all extremities, no calf tenderness. No edema appreciated. Central nervous system: AAO x 3. CN 2-12 grossly intact. Dermatologic: Skin warm and dry. Assessment and plan: Patient is a 52-year-old female past medical history significant for COPD, pulmonary embolism status post IVC filter maintained on several to, lung cancer status post chemotherapy and lobectomy, osteoarthritis, schizoaffective disorder, and cocaine abuse that presented to the emergency room with worsening shortness of breath. 1. COPD exacerbation. Shortness of breath. Cough. Improving. Continue nebulizer treatments. Continue Brovana and Pulmicort. Continue Solu-Medrol, taper steroids. Continue O2 via nasal cannula as needed. Continue Levaquin. Pulmonary consulted, recommendations appreciated. Counseled on tobacco cessation. Counseled on cocaine cessation. 2. Chronic chest pain. Troponins within normal limits. Recent Echo with EF of 60 %. Continue with pain management. Will d/c telemetry. 3. Recurrent pulmonary emboli. Continue Xarelto. S/P IVC filter placement. 4. History of lung cancer. S/P chemo and lobectomy. Patient is suppose to have PET scan as outpatient but has not done so yet. Hem/onc consulted. Continue home pain mediations. 5. Blood culture with corynebacterium 01/03/18 at previous visit. ID was consulted. Repeat blood cultures pending. 6. Schizoaffective disorder. Continue home Depakote and Risperdal 7. Tobacco abuse. Patient counseled at length on cessation. 8. Cocaine abuse. Patient adamantly denies using cocaine. However urine drug screens past admissions as well as this admission was positive for cocaine. Patient counseled at length on cocaine cessation 9. GI/DVT prophylaxis. Protonix and Xarelto Case was discussed in detail with the patient regarding current diagnosis and treatment plan.
--- NOTE | 2018-01-10 15:26 | CARD ---
APPROVED REPORT Date of service: 01/10/2018 EKG Measurement Heart [id number] 124P34 [id number] <Conclusion> Normal sinus rhythm Normal ECG
[2018-01-10] MEDS ORDERED: Iohexol 350 MG/100 ML VIAL ONE (17:23)
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
[2018-01-11] MEDS: Albuterol-Ipratrop 3 mg / 0.5 (3 ml) UD IH SCH ×5 (01:10→23:43)
[2018-01-11] MEDS: oxyCODONE 30 mg Immediate Release Tab PO PRN ×3 (06:49→18:52)
[2018-01-11] MEDS: Pantoprazole 40 mg EC Tab PO SCH (06:53)
[2018-01-11 07:23] LABS: GRAN # 9.72 (1.4-6.5); HEMOGLOBIN 11.6 g/dL (12.0-16.0); LYMPH % 9.2 % (22.0-35.0); MEAN CELL VOLUME 87.4 fl (80.0-105.0); MEAN CORPUSCULAR HEMOGLOBIN 28.2 pg (25.0-35.0); MEAN CORPUSCULAR HGB CONC 32.2 g/dl (31.0-37.0); MEAN PLATELET VOLUME 8.7 fl (7.0-11.0); MONO # 0.3 (0.1-0.6); MONO % 2.8 % (1.0-6.0); RBC 4.12 10^6/uL (3.5-6.1); RED CELL DISTRIBUTION WIDTH 14.7 % (11.5-14.5); WHITE BLOOD COUNT 11.1 10^3/ul (4.5-11.0)
[2018-01-11 07:31] LABS: ALB/GLOB RATIO 1.4 (1.1-1.8); ALBUMIN 3.8 g/dL (3.0-4.8); ALT/SGPT 36 U/L (7-56); AST/SGOT 20 U/L (14-36); BLOOD UREA NITROGEN 13 mg/dL (7-21); GFR NON-AFRICAN AMERICAN > 60
[2018-01-11] MEDS: MethylPREDNISolone 40 mg Vial IVP SCH ×3 (08:16→23:15)
--- NOTE | 2018-01-11 10:04 | CT ---
Date of service: 01/10/2018 PROCEDURE: CT Chest with contrast HISTORY: reccurent tumor. Chest CT with IV contrast COMPARISON: 08/23/2017 TECHNIQUE: Contiguous axial images were obtained through the chest with intravenous contrast enhancement. Sagittal and coronal reconstructions were performed. IV contrast: 95 cc of Omni 350 Radiation dose (DLP): 812 mGy-cm. This CT exam was performed using one or more of the following dose reduction techniques: Automated exposure control, adjustment of the mA and/or kV according to patient size, and/or use of iterative reconstruction technique. FINDINGS: LUNGS: There is focal scarring and consolidation adjacent to the right hilum posteriorly consistent with previously treated tumor. Previous partial pneumonectomy on the right upper lobe. Emphysematous changes are seen in the upper lobes MEDIASTINUM: Unremarkable thoracic aorta. No aneurysm or dissection. Normal sized heart. Main pulmonary artery unremarkable. No vascular congestion. No lymphadenopathy. No evidence of pulmonary embolus PLEURA: No pleural fluid. No pneumothorax. BONES: No fracture. No destructive lesion. UPPER ABDOMEN: Grossly unremarkable. OTHER FINDINGS: The report concurs with the preliminary [facility] report IMPRESSION: No acute findings. No evidence of pulmonary embolus or dissection. No evidence of pneumonia
[2018-01-11] MEDS: levoFLOXacin 750 mg in D5W 750 MG/150 ML BAG IVPB SCH (10:05)
[2018-01-11] MEDS: guaiFENesin 600 mg ER Tab PO SCH ×2 (10:06→18:51)
[2018-01-11] MEDS: Divalproex 250 mg DR (BID formulation) PO SCH ×2 (10:07→18:47)
[2018-01-11] MEDS: Arformoterol 15 mcg/2 ml Inh Sol IH SCH ×2 (11:00→23:43)
[2018-01-11] MEDS: Budesonide 0.25 mg/2 ml Inhal Susp UD IH SCH ×2 (11:00→23:43)
--- NOTE | 2018-01-11 15:59 | CARD ---
APPROVED REPORT Date of service: 01/11/2018 EKG Measurement Heart [id number] [place] 114P46 [id number] <Conclusion> Normal sinus rhythm Normal ECG
--- NOTE | 2018-01-11 16:37 | CP.PCM.PN ---
Subjective - Date & Time of Evaluation Date of Evaluation: 01/11/18 Time of Evaluation: 16:32 - Subjective Subjective: Patient seen and examined at bedside. Pt reports her SOB is significantly improved. Endores mild non productive cough, which is improving. CT chest done, and reviewed. Denies fever, chills, chest pain, palpitations. Objective - Vital Signs/Intake and Output Vital Signs (last 24 hours): Temp Pulse Resp BP Pulse Ox 97.5 F L 79 20 119/82 95 01/11/18 14:00 01/11/18 14:00 01/11/18 14:00 01/11/18 14:00 01/11/18 14:00 Intake and Output: 01/11/18 01/11/18 06:59 18:59 Intake Total 960 Balance 960 - Medications Medications: Current Medications Albuterol/Ipratropium (Duoneb 3 Mg/0.5 Mg (3 Ml) Ud) 3 ml IH [id number] [facility] Last Admin: 01/11/18 11:00 Dose: 3 ml Albuterol/Ipratropium (Duoneb 3 Mg/0.5 Mg (3 Ml) Ud) 3 ml IH Q2H PRN PRN Reason: Shortness of Breath Arformoterol Tartrate (Brovana) 15 mcg IH [id number] [facility] Last Admin: 01/11/18 11:00 Dose: 15 mcg Budesonide (Pulmicort Respules) 0.25 mg IH [id number] [facility] Last Admin: 01/11/18 11:00 Dose: 0.25 mg Divalproex Sodium (Depakote Dr (*Bid*)) 250 mg PO BID [facility] PRN Reason: Protocol Last Admin: 01/11/18 10:07 Dose: 250 mg Famotidine (Pepcid) 40 mg PO HS [facility] Last Admin: 01/09/18 21:28 Dose: 40 mg Guaifenesin (Mucinex La) 600 mg PO BID [facility] Last Admin: 01/11/18 10:06 Dose: 600 mg Levofloxacin/Dextrose (Levaquin 750mg) 750 mg in 150 mls @ 100 mls/hr IVPB DAILY [facility] PRN Reason: Protocol Last Admin: 01/11/18 10:05 Dose: 100 mls/hr Methylprednisolone (Solu-Medrol) 30 mg IVP Q8H [facility] Last Admin: 01/11/18 15:35 Dose: 30 mg Nicotine (Nicoderm Cq) 1 patch TD DAILY [facility] Last Admin: 01/11/18 10:06 Dose: 1 patch Oxycodone HCl (Oxycodone Immediate Release Tab) 30 mg PO Q6H PRN PRN Reason: Pain, severe (8-10) Last Admin: 01/11/18 12:51 Dose: 30 mg Pantoprazole Sodium (Protonix Ec Tab) 40 mg PO 0600 [facility] Last Admin: 01/11/18 06:53 Dose: 40 mg Risperidone (Risperdal Tab) 0.5 mg PO BID [facility] PRN Reason: Protocol Last Admin: 01/11/18 10:06 Dose: 0.5 mg Rivaroxaban (Xarelto) 20 mg PO DAILY [facility] PRN Reason: Protocol Last Admin: 01/11/18 10:07 Dose: 20 mg - Labs Labs: 01/11/18 06:30 01/11/18 06:30 - Constitutional Appears: Non-toxic, No Acute Distress - Head Exam Head Exam: NORMAL INSPECTION - Eye Exam Eye Exam: Normal appearance - ENT Exam ENT Exam: Mucous Membranes Moist - Neck Exam Neck Exam: Full ROM - Respiratory Exam Respiratory Exam: Rales, NORMAL BREATHING PATTERN Additional comments: NO wheezing - Cardiovascular Exam Cardiovascular Exam: REGULAR RHYTHM, +S1, +S2 - GI/Abdominal Exam GI & Abdominal Exam: Soft, Normal Bowel Sounds - Back Exam Back Exam: NORMAL INSPECTION - Neurological Exam Neurological Exam: Alert, Awake, Oriented x3 Assessment and Plan - Assessment and Plan (Free Text) Assessment: Patient is 52 yo female with PMHx of COPD, PE (on xarelto), lung cancer s/p RUL lobectomy, chemo/radiation, osteoarthritis, schizoaffective disorder admitted with SOB, Cough, COPD exacerbation SOB Cough COPD exacerbation - currently afebrile, HD stable, comfortable on room air, in NAD - on exam has crackles at the bases, no wheezing - CT chest done, NO PE, or focal consolidation - Would taper steroids Solumedrol 30mg IV Q12hr - Duonebs PRN - Cont with Levaquin IV - Follow up ID - ICS/LABA - follow up heme onc - PT, OOB to chair - GI ppx - DVT ppx, Xarelto
--- NOTE | 2018-01-11 16:49 | CP.PCM.PN ---
<Marek Floyd - Last Filed: 01/11/18 17:09> Subjective - Date & Time of Evaluation Date of Evaluation: 01/11/18 Time of Evaluation: 07:00 - Subjective Subjective: Marek Floyd, PGY1 Medicine Progress Note for Dr. Tafoya Patient was seen and examined at bedside this morning. Patient still has shortness of breath and cough, however, it has improved since admission. Denies cp, abdominal pain, n/v/d, LE pain/swelling. She has good appetite. No fevers overnight. Vital signs stable. A full 12 point ROS was conducted and unremarkable except as stated above. Objective - Vital Signs/Intake and Output Vital Signs (last 24 hours): Temp Pulse Resp BP Pulse Ox 97.5 F L 79 20 119/82 95 01/11/18 14:00 01/11/18 14:00 01/11/18 14:00 01/11/18 14:00 01/11/18 14:00 Intake and Output: 01/11/18 01/11/18 06:59 18:59 Intake Total 960 Balance 960 - Medications Medications: Current Medications Albuterol/Ipratropium (Duoneb 3 Mg/0.5 Mg (3 Ml) Ud) 3 ml IH [id number] [facility] Last Admin: 01/11/18 11:00 Dose: 3 ml Albuterol/Ipratropium (Duoneb 3 Mg/0.5 Mg (3 Ml) Ud) 3 ml IH Q2H PRN PRN Reason: Shortness of Breath Arformoterol Tartrate (Brovana) 15 mcg IH [id number] [facility] Last Admin: 01/11/18 11:00 Dose: 15 mcg Budesonide (Pulmicort Respules) 0.25 mg IH [id number] [facility] Last Admin: 01/11/18 11:00 Dose: 0.25 mg Divalproex Sodium (Depakote Dr (*Bid*)) 250 mg PO BID [facility] PRN Reason: Protocol Last Admin: 01/11/18 10:07 Dose: 250 mg Famotidine (Pepcid) 40 mg PO HS [facility] Last Admin: 01/09/18 21:28 Dose: 40 mg Guaifenesin (Mucinex La) 600 mg PO BID [facility] Last Admin: 01/11/18 10:06 Dose: 600 mg Levofloxacin/Dextrose (Levaquin 750mg) 750 mg in 150 mls @ 100 mls/hr IVPB DAILY [facility] PRN Reason: Protocol Last Admin: 01/11/18 10:05 Dose: 100 mls/hr Methylprednisolone (Solu-Medrol) 30 mg IVP Q8H [facility] Last Admin: 01/11/18 15:35 Dose: 30 mg Nicotine (Nicoderm Cq) 1 patch TD DAILY [facility] Last Admin: 01/11/18 10:06 Dose: 1 patch Oxycodone HCl (Oxycodone Immediate Release Tab) 30 mg PO Q6H PRN PRN Reason: Pain, severe (8-10) Last Admin: 01/11/18 12:51 Dose: 30 mg Pantoprazole Sodium (Protonix Ec Tab) 40 mg PO 0600 [facility] Last Admin: 01/11/18 06:53 Dose: 40 mg Risperidone (Risperdal Tab) 0.5 mg PO BID [facility] PRN Reason: Protocol Last Admin: 01/11/18 10:06 Dose: 0.5 mg Rivaroxaban (Xarelto) 20 mg PO DAILY [facility] PRN Reason: Protocol Last Admin: 01/11/18 10:07 Dose: 20 mg - Labs Labs: 01/11/18 06:30 01/11/18 06:30 - Constitutional Appears: Well - Head Exam Head Exam: ATRAUMATIC, NORMAL INSPECTION, NORMOCEPHALIC - Eye Exam Eye Exam: EOMI, Normal appearance, PERRL - ENT Exam ENT Exam: Mucous Membranes Moist, Normal Exam - Neck Exam Neck Exam: Full ROM, Normal Inspection. absent: Lymphadenopathy - Respiratory Exam Respiratory Exam: Clear to Ausculation Bilateral, NORMAL BREATHING PATTERN. absent: Rales, Rhonchi, Wheezes - Cardiovascular Exam Cardiovascular Exam: REGULAR RHYTHM, +S1, +S2. absent: Murmur - GI/Abdominal Exam GI & Abdominal Exam: Soft, Normal Bowel Sounds. absent: Tenderness - Extremities Exam Extremities Exam: Full ROM, Normal Capillary Refill, Normal Inspection. absent : Joint Swelling, Pedal Edema, Tenderness - Back Exam Back Exam: NORMAL INSPECTION - Neurological Exam Neurological Exam: Alert, Awake, CN II-XII Intact, Normal Gait, Oriented x3 Neuro motor strength exam: Left Upper Extremity: 5, Right Upper Extremity: 5, Left Lower Extremity: 5, Right Lower Extremity: 5 - Skin Skin Exam: Dry, Intact, Normal Color, Warm Assessment and Plan - Assessment and Plan (Free Text) Assessment: Patient is a 42 y/o F with PMHx of COPD, Multiple Pulmonary Embolisms (x4 PE; on xarelto and R-IVC filter placed 2 months ago), lung cancer s/p R-lobectomy ( 2014), OA, and schizoaffective disorder who presented to the ED on 01/09 for unresolved shortness of breath after she was discharged from the hospital 2 days ago. Patient is admitted to the floor for SOB 2/2 COPD Exacerbation. Plan: SOB 2/2 COPD exacerbation - Chest CT (01/10): no acute findings. No evidence of pneumonia. - c/w duonebs treatment q2 prn and q4H standing - c/w Pulmicort - c/w mucinex 600 mg PO BID - Appreciated pulmonology recs: levofloxacin, blood cx, urine cx, procal, legionella - solumedrol 30 mg IVP q8; taper as needed - ID consulted by pulm; f/u recs - Maintain SaO2 > 92% - CXR (01/09): no acute findings. COPD. - Rule out infection: Repeat blood cx pending (Blood Cx on prior discharge was contaminated), UCx pending, Procal negative Lung Cancer s/p R-lobectomy (2014) - f/u recommendations as per Dr. Beck. Rule out possible recurrence or metastasis of lung cancer. - c/w oxycodone 30 mg PO q6H prn for pain control - Heme/onc consulted, f/u recs. Hx of Multiple Pulmonary Embolisms - c/w xarelto 20 mg PO daily Schizoaffective disorder - c/w Depakote - c/w risperdal GI ppx: pepcid 40 mg PO Dispo: Continue to monitor patient on the floor. Case was discussed and reviewed with Attending Physician, Dr. Tafoya. <Callie Tafoya R - Last Filed: 01/12/18 16:06> Objective - Vital Signs/Intake and Output Vital Signs (last 24 hours): Temp Pulse Resp BP Pulse Ox 97.5 F L 81 20 134/87 96 01/12/18 14:00 01/12/18 14:00 01/12/18 14:00 01/12/18 14:00 01/12/18 14:00 Intake and Output: 01/12/18 01/12/18 06:59 18:59 Intake Total 600 Balance 600 - Medications Medications: Current Medications Albuterol/Ipratropium (Duoneb 3 Mg/0.5 Mg (3 Ml) Ud) 3 ml IH [id number] [facility] Last Admin: 01/12/18 11:28 Dose: 3 ml Albuterol/Ipratropium (Duoneb 3 Mg/0.5 Mg (3 Ml) Ud) 3 ml IH Q2H PRN PRN Reason: Shortness of Breath Arformoterol Tartrate (Brovana) 15 mcg IH [id number] [facility] Last Admin: 01/12/18 07:35 Dose: 15 mcg Budesonide (Pulmicort Respules) 0.25 mg IH [id number] [facility] Last Admin: 01/12/18 07:36 Dose: 0.25 mg Divalproex Sodium (Depakote Dr (*Bid*)) 250 mg PO BID [facility] PRN Reason: Protocol Last Admin: 01/12/18 10:13 Dose: 250 mg Famotidine (Pepcid) 40 mg PO HS [facility] Last Admin: 01/09/18 21:28 Dose: 40 mg Guaifenesin (Mucinex La) 600 mg PO BID [facility] Last Admin: 01/12/18 10:13 Dose: 600 mg Levofloxacin/Dextrose (Levaquin 750mg) 750 mg in 150 mls @ 100 mls/hr IVPB DAILY [facility] PRN Reason: Protocol Last Admin: 01/12/18 10:14 Dose: 100 mls/hr Methylprednisolone (Solu-Medrol) 30 mg IVP Q8H [facility] Last Admin: 01/12/18 08:57 Dose: 30 mg Nicotine (Nicoderm Cq) 1 patch TD DAILY [facility] Last Admin: 01/12/18 10:11 Dose: 1 patch Oxycodone HCl (Oxycodone Immediate Release Tab) 30 mg PO Q6H PRN PRN Reason: Pain, severe (8-10) Last Admin: 01/12/18 06:30 Dose: 30 mg Pantoprazole Sodium (Protonix Ec Tab) 40 mg PO 0600 [facility] Last Admin: 01/12/18 05:51 Dose: 40 mg Risperidone (Risperdal Tab) 0.5 mg PO BID [facility] PRN Reason: Protocol Last Admin: 01/12/18 10:14 Dose: 0.5 mg Rivaroxaban (Xarelto) 20 mg PO DAILY [facility] PRN Reason: Protocol Last Admin: 01/11/18 10:07 Dose: 20 mg - Labs Labs: 01/12/18 06:15 01/12/18 06:15 Attending/Attestation - Attestation I have personally seen and examined this patient.: Yes I have fully participated in the care of the patient.: Yes I have reviewed all pertinent clinical information, including history, physical exam and plan: Yes Notes (Text): Patient seen and examined by me at 11:15AM on 01/11/18 with resident. Case including HPI, physical exam, and assessment and plan discussed with resident. Agree with above with following additions/corrections. Patient is a 52-year-old female past medical history significant for COPD, pulmonary embolism status post IVC filter maintained on several to, lung cancer status post chemotherapy and lobectomy, osteoarthritis, schizoaffective disorder , and cocaine abuse that presented to the emergency room with worsening shortness of breath. Patient states she is feeling better. Shortness of breath and cough improved. Chest pain is unchanged. No nausea, vomiting, or abdominal pain. No headaches or dizziness. No fevers or chills. No dysuria. No diarrhea or constipation. Physical exam: General: Awake and alert sitting up in bed in no acute distress HEENT: Normocephalic, atraumatic. Extraocular muscles intact. Pupils equal reactive. No scleral icterus. Oropharynx is pink and moist. No pharyngeal erythema or exudate appreciated. Neck is supple. Cardiovascular: Normal rhythm. Normal S1, S2. No murmurs, rubs, or gallops appreciated Pulmonary: Normal respiratory effort. Decreased breath sounds throughout. No rhonchi, rales, or wheezing appreciated. Gastrointestinal: Soft, nondistended. Nontender. Positive bowel sounds all 4 quadrants, no guarding. Musculoskeletal: Moves all extremities, no calf tenderness. No edema appreciated. Central nervous system: AAO x 3. CN 2-12 grossly intact. Dermatologic: Skin warm and dry. Assessment and plan: Patient is a 52-year-old female past medical history significant for COPD, pulmonary embolism status post IVC filter maintained on several to, lung cancer status post chemotherapy and lobectomy, osteoarthritis, schizoaffective disorder, and cocaine abuse that presented to the emergency room with worsening shortness of breath. 1. COPD exacerbation. Shortness of breath. Cough. Continues to improve. Will start on Mucinex. Continue nebulizer treatments. Continue Brovana and Pulmicort. Continue Solu-Medrol, continue to taper steroids. Continue O2 via nasal cannula as needed. Continue Levaquin. Pulmonary consulted, recommendations appreciated. Counseled on tobacco cessation. Counseled on cocaine cessation. 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 2. Chronic chest pain. Troponins within normal limits. Recent Echo with EF of 60 %. Continue with pain management. 3. Recurrent pulmonary emboli. Continue Xarelto. S/P IVC filter placement. 4. History of lung cancer. S/P chemo and lobectomy. Patient is suppose to have PET scan as outpatient but has not done so yet. Hem/onc consulted, follow-up recommendations. Continue home pain mediations. 5. Blood culture with corynebacterium 01/03/18 at previous visit. ID following, recommendations appreciated Repeat blood cultures pending. 6. Schizoaffective disorder. Continue home Depakote and Risperdal 7. Tobacco abuse. Patient counseled at length on cessation. 8. Cocaine abuse. Patient adamantly denies using cocaine. However urine drug screens past admissions as well as this admission was positive for cocaine. Patient counseled at length on cocaine cessation 9. GI/DVT prophylaxis. Protonix and Xarelto Case was discussed in detail with the patient regarding current diagnosis and treatment plan.
--- NOTE | 2018-01-11 22:55 | PN ---
DATE: 01/11/2018 SUBJECTIVE: The patient is seen earlier today in 566, bed 1. The patient states that she is slightly better, although she still feels weak. PHYSICAL EXAMINATION: VITAL SIGNS: The patient's temperature is 98, blood pressure is 120/70, respiratory rate is 16. HEENT: Unremarkable. NECK: Supple. LUNGS: Have decreased breath sounds. HEART: Normal S1, S2. ABDOMEN: Soft, nontender. LABORATORY DATA: Review of laboratories are noted. ASSESSMENT AND PLAN: A 52-year-old female who was seen earlier this morning. The patient is somewhat improved. We will continue with present course pending further results. We will follow with you pending further results and clinical response. Erik Mejia MD
[2018-01-11 23:20] VITALS: O2SAT 96
[2018-01-12] MEDS: oxyCODONE 30 mg Immediate Release Tab PO PRN ×2 (00:56→06:30)
[2018-01-12] MEDS: Albuterol-Ipratrop 3 mg / 0.5 (3 ml) UD IH SCH ×3 (04:20→11:28)
[2018-01-12] MEDS: Pantoprazole 40 mg EC Tab PO SCH (05:51)
[2018-01-12 07:01] LABS: GRAN # 8.06 (1.4-6.5); GRAN % 83.5 % (50.0-68.0); HEMOGLOBIN 12.2 g/dL (12.0-16.0); LYMPH # 1.1 (1.2-3.4); LYMPH % 10.9 % (22.0-35.0); MEAN CELL VOLUME 88.1 fl (80.0-105.0); MEAN CORPUSCULAR HEMOGLOBIN 28.6 pg (25.0-35.0); MEAN CORPUSCULAR HGB CONC 32.4 g/dl (31.0-37.0); MEAN PLATELET VOLUME 9.2 fl (7.0-11.0); MONO # 0.5 (0.1-0.6); MONO % 5.6 % (1.0-6.0); RBC 4.27 10^6/uL (3.5-6.1); RED CELL DISTRIBUTION WIDTH 14.7 % (11.5-14.5); WHITE BLOOD COUNT 9.7 10^3/ul (4.5-11.0)
[2018-01-12 07:28] LABS: ALB/GLOB RATIO 1.3 (1.1-1.8); ALBUMIN 3.8 g/dL (3.0-4.8); ALT/SGPT 37 U/L (7-56); AST/SGOT 30 U/L (14-36); BLOOD UREA NITROGEN 14 mg/dL (7-21); GFR NON-AFRICAN AMERICAN > 60
[2018-01-12] MEDS: Arformoterol 15 mcg/2 ml Inh Sol IH SCH (07:35)
[2018-01-12] MEDS: Budesonide 0.25 mg/2 ml Inhal Susp UD IH SCH (07:36)
[2018-01-12 08:46] VITALS: RESP 20
[2018-01-12] MEDS: MethylPREDNISolone 40 mg Vial IVP SCH (08:57)
[2018-01-12] MEDS: Divalproex 250 mg DR (BID formulation) PO SCH (10:13)
[2018-01-12] MEDS: guaiFENesin 600 mg ER Tab PO SCH (10:13)
[2018-01-12] MEDS: levoFLOXacin 750 mg in D5W 750 MG/150 ML BAG IVPB SCH (10:14)
--- NOTE | 2018-01-12 13:32 | CP.PCM.PN ---
Subjective - Date & Time of Evaluation Date of Evaluation: 01/12/18 Time of Evaluation: 13:29 - Subjective Subjective: Patient seen and examined at bedside, reports no respiratory complaints. Denies Fever, chills, cough, chest pain, SOB. Feels significantly improved. Objective - Vital Signs/Intake and Output Vital Signs (last 24 hours): Temp Pulse Resp BP Pulse Ox 98.5 F 70 20 100/50 L 96 01/12/18 06:00 01/12/18 06:00 01/12/18 06:00 01/12/18 06:00 01/12/18 06:00 Intake and Output: 01/12/18 01/12/18 06:59 18:59 Intake Total 600 Balance 600 - Medications Medications: Current Medications Albuterol/Ipratropium (Duoneb 3 Mg/0.5 Mg (3 Ml) Ud) 3 ml IH [id number] [facility] Last Admin: 01/12/18 11:28 Dose: 3 ml Albuterol/Ipratropium (Duoneb 3 Mg/0.5 Mg (3 Ml) Ud) 3 ml IH Q2H PRN PRN Reason: Shortness of Breath Arformoterol Tartrate (Brovana) 15 mcg IH [id number] [facility] Last Admin: 01/12/18 07:35 Dose: 15 mcg Budesonide (Pulmicort Respules) 0.25 mg IH [id number] [facility] Last Admin: 01/12/18 07:36 Dose: 0.25 mg Divalproex Sodium (Depakote Dr (*Bid*)) 250 mg PO BID [facility] PRN Reason: Protocol Last Admin: 01/12/18 10:13 Dose: 250 mg Famotidine (Pepcid) 40 mg PO HS [facility] Last Admin: 01/09/18 21:28 Dose: 40 mg Guaifenesin (Mucinex La) 600 mg PO BID [facility] Last Admin: 01/12/18 10:13 Dose: 600 mg Levofloxacin/Dextrose (Levaquin 750mg) 750 mg in 150 mls @ 100 mls/hr IVPB DAILY [facility] PRN Reason: Protocol Last Admin: 01/12/18 10:14 Dose: 100 mls/hr Methylprednisolone (Solu-Medrol) 30 mg IVP Q8H [facility] Last Admin: 01/12/18 08:57 Dose: 30 mg Nicotine (Nicoderm Cq) 1 patch TD DAILY [facility] Last Admin: 01/12/18 10:11 Dose: 1 patch Oxycodone HCl (Oxycodone Immediate Release Tab) 30 mg PO Q6H PRN PRN Reason: Pain, severe (8-10) Last Admin: 01/12/18 06:30 Dose: 30 mg Pantoprazole Sodium (Protonix Ec Tab) 40 mg PO 0600 [facility] Last Admin: 01/12/18 05:51 Dose: 40 mg Risperidone (Risperdal Tab) 0.5 mg PO BID [facility] PRN Reason: Protocol Last Admin: 01/12/18 10:14 Dose: 0.5 mg Rivaroxaban (Xarelto) 20 mg PO DAILY [facility] PRN Reason: Protocol Last Admin: 01/11/18 10:07 Dose: 20 mg - Labs Labs: 01/12/18 06:15 01/12/18 06:15 - Constitutional Appears: Non-toxic, No Acute Distress - Head Exam Head Exam: NORMAL INSPECTION - Eye Exam Eye Exam: Normal appearance - ENT Exam ENT Exam: Mucous Membranes Moist - Neck Exam Neck Exam: Full ROM - Respiratory Exam Respiratory Exam: Clear to Ausculation Bilateral, NORMAL BREATHING PATTERN - Cardiovascular Exam Cardiovascular Exam: REGULAR RHYTHM, +S1, +S2 - GI/Abdominal Exam GI & Abdominal Exam: Soft, Normal Bowel Sounds - Extremities Exam Extremities Exam: Full ROM - Neurological Exam Neurological Exam: Alert, Awake, Oriented x3 Assessment and Plan - Assessment and Plan (Free Text) Assessment: Patient is 52 yo female with PMHx of COPD, PE (on xarelto), lung cancer s/p RUL lobectomy, chemo/radiation, osteoarthritis, schizoaffective disorder admitted with SOB, Cough, COPD exacerbation SOB Cough COPD exacerbation - currently afebrile, HD stable, comfortable on room air, in NAD - on exam lungs CTABL, no wheezing - CT chest done, NO PE, or focal consolidation - switch Solumedrol to Prednisone PO 40mg daily with taper - Upon discharge patient should be on home meds of: Breo Spiriva Albuterol PRN Levaquin 750mg daily PO x 3 days Prednisone taper - counseled on smoking cessation, and avoidance of cocaine usage - needs outpatient pulm follow up within 7 days of discharge
[2018-01-12 15:09] VITALS: BP 134/87; PULSE 81; TEMP 97.5
--- NOTE | 2018-01-12 16:48 | CP.PCM.PN ---
Subjective - Date & Time of Evaluation Date of Evaluation: 01/12/18 Time of Evaluation: 13:50 - Subjective Subjective: No fevers, not in distress. Objective - Vital Signs/Intake and Output Vital Signs (last 24 hours): Temp Pulse Resp BP Pulse Ox 98.5 F 70 20 100/50 L 96 01/12/18 06:00 01/12/18 06:00 01/12/18 06:00 01/12/18 06:00 01/12/18 06:00 Intake and Output: 01/12/18 01/12/18 06:59 18:59 Intake Total 600 Balance 600 - Medications Medications: Current Medications Albuterol/Ipratropium (Duoneb 3 Mg/0.5 Mg (3 Ml) Ud) 3 ml IH [id number] [facility] Last Admin: 01/12/18 11:28 Dose: 3 ml Albuterol/Ipratropium (Duoneb 3 Mg/0.5 Mg (3 Ml) Ud) 3 ml IH Q2H PRN PRN Reason: Shortness of Breath Arformoterol Tartrate (Brovana) 15 mcg IH [id number] [facility] Last Admin: 01/12/18 07:35 Dose: 15 mcg Budesonide (Pulmicort Respules) 0.25 mg IH [id number] [facility] Last Admin: 01/12/18 07:36 Dose: 0.25 mg Divalproex Sodium (Depakote Dr (*Bid*)) 250 mg PO BID [facility] PRN Reason: Protocol Last Admin: 01/12/18 10:13 Dose: 250 mg Famotidine (Pepcid) 40 mg PO HS [facility] Last Admin: 01/09/18 21:28 Dose: 40 mg Guaifenesin (Mucinex La) 600 mg PO BID [facility] Last Admin: 01/12/18 10:13 Dose: 600 mg Levofloxacin/Dextrose (Levaquin 750mg) 750 mg in 150 mls @ 100 mls/hr IVPB DAILY [facility] PRN Reason: Protocol Last Admin: 01/12/18 10:14 Dose: 100 mls/hr Methylprednisolone (Solu-Medrol) 30 mg IVP Q8H [facility] Last Admin: 01/12/18 08:57 Dose: 30 mg Nicotine (Nicoderm Cq) 1 patch TD DAILY [facility] Last Admin: 01/12/18 10:11 Dose: 1 patch Oxycodone HCl (Oxycodone Immediate Release Tab) 30 mg PO Q6H PRN PRN Reason: Pain, severe (8-10) Last Admin: 01/12/18 06:30 Dose: 30 mg Pantoprazole Sodium (Protonix Ec Tab) 40 mg PO 0600 [facility] Last Admin: 01/12/18 05:51 Dose: 40 mg Risperidone (Risperdal Tab) 0.5 mg PO BID [facility] PRN Reason: Protocol Last Admin: 01/12/18 10:14 Dose: 0.5 mg Rivaroxaban (Xarelto) 20 mg PO DAILY [facility] PRN Reason: Protocol Last Admin: 01/11/18 10:07 Dose: 20 mg - Labs Labs: 01/12/18 06:15 01/12/18 06:15 - Head Exam Head Exam: NORMAL INSPECTION Assessment and Plan - Assessment and Plan (Free Text) Plan: Assessment Corynebacterium in blood cx bottles (from 01/03/2018), probably contamination S/P port placement on the left anterior chest wall Probable acute exacerbation of COPD, R/O pneumonia obesity with BM 36 pulmonary emboli S/P IVC filter placement 2 months ago and currently on anticoagulation lung cancer S/P right upper lobectomy and S/P chemotherapy Plan no need to treat the Corynbacterium with antibiotics - patient on Levaquin as started by Pulmonary and they will decide duration of therapy
--- NOTE | 2018-01-12 21:01 | CP.PCM.DIS ---
Provider - Provider Date of Admission: 01/10/18 09:43 Attending physician: Nola Limon MD Primary care physician: Lui Beck Consults: Pulmonology: Dr. Daniels Heme/Onc: Dr. Beck ID: [email or web address] Time Spent in preparation of Discharge (in minutes): 40 Hospital Course - Lab Results Lab Results: Micro Results 01/10/18 12:45 Blood Blood Culture - Preliminary NO GROWTH AFTER 48 HOURS 01/10/18 12:30 Blood Blood Culture - Preliminary NO GROWTH AFTER 48 HOURS Most Recent Lab Values WBC 9.7 10^3/ul (4.5-11.0) 01/12/18 06:15 RBC 4.27 10^6/uL (3.5-6.1) 01/12/18 06:15 Hgb 12.2 g/dL (12.0-16.0) 01/12/18 06:15 Hct 37.6 % (36.0-48.0) 01/12/18 06:15 MCV 88.1 fl (80.0-105.0) 01/12/18 06:15 MCH 28.6 pg (25.0-35.0) 01/12/18 06:15 MCHC 32.4 g/dl (31.0-37.0) 01/12/18 06:15 RDW 14.7 % (11.5-14.5) H 01/12/18 06:15 Plt Count 247 10^3/uL (120.0-450.0) 01/12/18 06:15 MPV 9.2 fl (7.0-11.0) 01/12/18 06:15 Gran % 83.5 % (50.0-68.0) H 01/12/18 06:15 Lymph % (Auto) 10.9 % (22.0-35.0) L 01/12/18 06:15 [place] % (Auto) 5.6 % (1.0-6.0) 01/12/18 06:15 Eos % (Auto) 0.0 % (1.5-5.0) L 01/12/18 06:15 Baso % (Auto) 0.0 % (0.0-3.0) 01/12/18 06:15 Gran # 8.06 (1.4-6.5) H 01/12/18 06:15 Lymph # (Auto) 1.1 (1.2-3.4) L 01/12/18 06:15 [place] # (Auto) 0.5 (0.1-0.6) 01/12/18 06:15 Eos # (Auto) 0.0 (0.0-0.7) 01/12/18 06:15 Baso # (Auto) 0.00 K/mm3 (0.0-2.0) 01/12/18 06:15 pO2 33 mm/Hg (30-55) 01/08/18 20:29 VBG pH 7.40 (7.32-7.43) 01/08/18 20:29 VBG pCO2 52.0 (40-60) 01/08/18 20: VBG HCO3 32.2 mmol/l (21-28) H 01/08/18 20:29 VBG Total CO2 33.8 mmol.L (22-28) H 01/08/18 20:29 VBG O2 Sat (Calc) 67.3 % (40-65) H 01/08/18 20:29 VBG Base Excess 6.0 mmol/L (0.0-2.0) H 01/08/18 20:29 VBG Potassium 4.0 mmol/L (3.6-5.2) 01/08/18 20:29 Sodium 137.0 mmol/L (132-148) 01/08/18 20:29 Chloride 103.0 mmol/L (98-107) 01/08/18 20:29 Glucose 101 mg/dl (65-105) 01/08/18 20:29 Lactate 1.0 mmol/L (0.7-2.1) 01/08/18 20:29 FiO2 21.0 % 01/08/18 20:29 Sodium 139 mmol/L (132-148) 01/12/18 06:15 Potassium 4.4 mmol/L (3.6-5.0) 01/12/18 06:15 Chloride 98 mmol/L (98-107) 01/12/18 06:15 Carbon Dioxide 34 mmol/L (21-33) H 01/12/18 06:15 Anion Gap 12 (10-20) 01/12/18 06:15 BUN 14 mg/dL (7-21) 01/12/18 06:15 Creatinine 0.9 mg/dl (0.7-1.2) 01/12/18 06:15 Est GFR ( Amer) > 60 01/12/18 06:15 Est GFR (Non-Af Amer) > 60 01/12/18 06:15 Random Glucose 130 mg/dL (70-110) H 01/12/18 06:15 Calcium 9.0 mg/dL (8.4-10.5) 01/12/18 06:15 Phosphorus 3.8 mg/dL (2.5-4.5) 01/12/18 06:15 Magnesium 2.3 mg/dL (1.7-2.2) H 01/12/18 06:15 Total Bilirubin 0.3 mg/dL (0.2-1.3) 01/12/18 06:15 AST 30 U/L (14-36) 01/12/18 06:15 ALT 37 U/L (7-56) 01/12/18 06:15 Alkaline Phosphatase 70 U/L (38-126) 01/12/18 06:15 Lactate Dehydrogenase 427 U/L (333-699) 01/08/18 20:29 Total Creatine Kinase 41 U/L (35-230) 01/08/18 20:29 Troponin I < 0.01 ng/mL 01/10/18 05:48 NT-Pro-B Natriuret Pep 82.5 pg/mL (0-450) 01/08/18 20:29 Total Protein 6.6 g/dL (5.8-8.3) 01/12/18 06:15 Albumin 3.8 g/dL (3.0-4.8) 01/12/18 06:15 Globulin 2.8 gm/dL 01/12/18 06:15 Albumin/Globulin Ratio 1.3 (1.1-1.8) 01/12/18 06:15 Procalcitonin < 0.05 NG/ML (0.19-0.49) L 01/10/18 12:45 Venous Blood Potassium 4.0 mmol/L (3.6-5.2) 01/08/18 20:29 Urine Color Yellow (YELLOW) 01/09/18 02:00 Urine Appearance Clear (CLEAR) 01/09/18 02:00 Urine pH 8.0 (4.7-8.0) 01/09/18 02:00 Ur Specific [place] 1.020 (1.005-1.035) 01/09/18 02:00 Urine Protein Trace mg/dL (<30 mg/dL) H 01/09/18 02:00 Urine Glucose (UA) Negative mg/dL (NEGATIVE) 01/09/18 02:00 Urine Ketones Negative mg/dL (NEGATIVE) 01/09/18 02:00 Urine Blood Negative (NEGATIVE) 01/09/18 02:00 Urine Nitrate Negative (NEGATIVE) 01/09/18 02:00 Urine Bilirubin Negative (NEGATIVE) 01/09/18 02:00 Urine Urobilinogen 0.2 E.U./dL (<1 E.U./dL) 01/09/18 02:00 Ur Leukocyte Esterase Trace Issac/uL (NEGATIVE) H 01/09/18 02:00 Urine RBC 0 - 2 /hpf (0-2) 01/09/18 02:00 Urine WBC 2 - 5 /hpf (0-6) 01/09/18 02:00 Ur Epithelial Cells 6 - 8 /hpf (0-5) 01/09/18 02:00 Urine Bacteria Small (NEG) 01/09/18 02:00 Urine Opiates Screen Negative (NEGATIVE) 01/10/18 01:25 Urine Methadone Screen Negative (NEGATIVE) 01/10/18 01:25 Ur Barbiturates Screen Negative (NEGATIVE) 01/10/18 01:25 Ur Phencyclidine Scrn Negative (NEGATIVE) 01/10/18 01:25 Ur Amphetamines Screen Negative (NEGATIVE) 01/10/18 01:25 U Benzodiazepines Scrn Negative (NEGATIVE) 01/10/18 01:25 U Oth Cocaine Metabols Positive (NEGATIVE) H 01/10/18 01:25 U Cannabinoids Screen Negative (NEGATIVE) 01/10/18 01:25 Ur L.pneumophila Ag Negative (NEGATIVE) 01/12/18 01:00 - Hospital Course Hospital Course: Marek Floyd, PGY1 Discharge Summary for Dr. Tafoya Hospital Admission: Patient is a 52 year old female with a past medical history of COPD, history of mulitiple pulmonary embolisms (x4 in the past 6 months), lung cancer, R- lobectomy (2 years ago), schizoaffective disorder presenting to the emergency room on 01/08 with a complaint of shortness of breath. Patient was recently discharged from the hospital on 01/05/18 after being admitted for a COPD exacerbation for 2 days. Patients provides most of current HPI due to patient feeling progressively more short of breath since she was discharged 3 days ago. She has taken all of her medications. She has not had a chance to follow up with any of her doctors. Patient is also complaining of pain under her breasts, which has been present since her previous admission. She has no other medical complaints at this time. Denies fevers, chills, nausea, vomiting, diarrhea, constipation, abdominal pain, numbness or tingling. Patient was admitted to telemetry initially for monitoring. Patient's EKG showed NSR with no ST or T wave changes. Patient's serial troponins were negative. CXR did not show any active disease, only evidence for COPD and chronic lung changes. Just like prior visit, patient found to have positive cocaine on urine drug screen. Pulmonology and ID was consulted for the patient. Started on levaquin. Blood cultures were negative. She had blood cx that were positive upon discharge from her prior visit, however, they were noted to be contaminated. Patient also did not show signs of infection: no leukocytosis, fevers, chills, weakness noted during her hospital stay. No source was found. Negative procal, legionella, and strep antigen. CT Chest did not show any acute findings. Clinically, patient improved during her hospital stay. Vital signs have been stable and no signs of respiratory distress or need for any form of invasive ventilation strategies. Upon Discharge: Patient will follow up with her technical sales consultant/oncologist as outpatient. Patient will follow up with a PMD as outpatient. Patient will continue with home medications and complete antibiotics for a total of 7 days (Levaquin). Patient will also be discharged on a steroid taper and continue her ICS/LABA for COPD management. Encouraged to refrain from cocaine use as this may be contributing to her symptoms. Case was discussed and reviewed with Attending Physician, Dr. Tafoya. Discharge Exam - Head Exam Head Exam: NORMAL INSPECTION - Eye Exam Eye Exam: EOMI, Normal appearance, PERRL - ENT Exam ENT Exam: Mucous Membranes Moist, Normal Exam - Neck Exam Neck exam: Full Rom - Respiratory Exam Respiratory Exam: NORMAL BREATHING PATTERN, UNREMARKABLE. absent: Rales, Rhonchi, Wheezes - Cardiovascular Exam Cardiovascular Exam: +S1, +S2. absent: Systolic Murmur - GI/Abdominal Exam GI & Abdominal Exam: Normal Bowel Sounds, Unremarkable - Extremities Exam Extremities exam: full ROM, normal inspection - Neurological Exam Neurological exam: Alert, CN II-XII Intact, Normal Gait, Oriented x3, Reflexes Normal - Psychiatric Exam Psychiatric exam: Normal Affect, Normal Mood - Skin Skin Exam: Dry, Intact, Normal Color, Warm Discharge Plan - Discharge Medications Prescriptions: Levofloxacin [Levaquin] 750 mg PO DAILY #4 tablet oxyCODONE/Acetaminophen [Percocet 5/325 mg Tab] 1 ea PO Q6 #12 tab - Follow Up Plan Condition: STABLE Disposition: HOME/ ROUTINE Instructions: High Blood Pressure in Adults, Heart Healthy Diet, Exacerbation of COPD Additional Instructions: 1. Please follow up with your technical sales consultant/oncologist, Dr. Beck, within one month. 2. Please follow up with your Primary Care Doctor within 3-5 days of discharge. 3. You are to continue your antibiotics: Levaquin 750 mg once daily for the next 4 days. 4. You will need to complete steroid taper as prescribed. 5. Please resume all your home medications. 6. Please refrain from cocaine and tobacco abuse 7. Please return to the Emergency Department if your symptoms reoccur. Referrals: Darnell Lewis MD [Medical Doctor] - Lui Beck MD [Primary Care Provider] -
== END 2018-01-12 16:57 | disposition home or self-care (01) | DRG 88 ==
LOC: ED 18:54 → ERH 01-09 00:09 → 2RNO 01-09 15:45 → OBSVTOIN 01-10 09:43 → 5RNO 01-10 11:14
PROVIDERS: ADMIT Internal Medicine; ATTEND Internal Medicine
DX: J44.1 Chronic obstructive pulmonary disease with (acute) exacerbation (principal); F14.10 Cocaine abuse, uncomplicated; F25.9 Schizoaffective disorder, unspecified; I10 Essential (primary) hypertension; F17.210 Nicotine dependence, cigarettes, uncomplicated; F31.9 Bipolar disorder, unspecified; I27.20 Pulmonary hypertension, unspecified; G89.29 Other chronic pain; M19.90 Unspecified osteoarthritis, unspecified site; E66.9 Obesity, unspecified; Z68.36 Body mass index [BMI] 36.0-36.9, adult; Z85.118 Personal history of other malignant neoplasm of bronchus and lung; Z90.2 Acquired absence of lung [part of]; Z86.711 Personal history of pulmonary embolism; Z79.01 Long term (current) use of anticoagulants; Z85.01 Personal history of malignant neoplasm of esophagus; Z87.01 Personal history of pneumonia (recurrent); Z87.440 Personal history of urinary (tract) infections; Z92.21 Personal history of antineoplastic chemotherapy; Z92.3 Personal history of irradiation; Z98.51 Tubal ligation status; Z82.49 Family history of ischemic heart disease and other diseases of the circulatory system; Z80.1 Family history of malignant neoplasm of trachea, bronchus and lung; Z80.3 Family history of malignant neoplasm of breast; Z88.6 Allergy status to analgesic agent; Z88.0 Allergy status to penicillin

== ENCOUNTER 2018-02-03 23:04 | Inpatient (IN) | payer MEDICAID ==
[2018-02-03 23:04] VITALS: BMI 34.8
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
[2018-02-04] MEDS ORDERED: Morphine 4 mg/ml ISec IVP STA (02:20)
[2018-02-04] MEDS ORDERED: Morphine 4 mg/ml ISec ONE (02:26)
[2018-02-04 02:39] LABS: HEMOGLOBIN 10.6 g/dL (12.0-16.0); MEAN CELL VOLUME 86.3 fl (80.0-105.0); MEAN CORPUSCULAR HGB CONC 32.4 g/dl (31.0-37.0); MEAN PLATELET VOLUME 8.6 fl (7.0-11.0); RBC 3.79 10^6/uL (3.5-6.1); RED CELL DISTRIBUTION WIDTH 15.2 % (11.5-14.5); WHITE BLOOD COUNT 5.9 10^3/ul (4.5-11.0)
[2018-02-04 02:55] LABS: INR 1.4; PARTIAL THROMBOPLASTIN TIME 31.8 Seconds (25.1-36.5); PROTHROMBIN TIME 16.1 SECONDS (9.4-12.5)
[2018-02-04 03:01] LABS: TROPONIN I < 0.01 ng/mL
[2018-02-04] MEDS ORDERED: Aztreonam 1 Gm in NS 100mL 100 ML IVPB STA (03:04)
[2018-02-04 03:08] LABS: ALB/GLOB RATIO 1.2 (1.1-1.8); ALBUMIN 3.6 g/dL (3.0-4.8); ALT/SGPT 33 U/L (7-56); AST/SGOT 30 U/L (14-36); BLOOD UREA NITROGEN 2 mg/dL (7-21); CALCIUM 8.8 mg/dL (8.4-10.5); GFR NON-AFRICAN AMERICAN > 60
[2018-02-04] MEDS ORDERED: Vancomycin 1gm in NS 250ml 1 GM/250 ML BAG IVPB STA (03:15)
[2018-02-04 03:41] LABS: CK-MB 2.8 ng/mL (0.0-3.6)
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
[2018-02-04] MEDS: MethylPREDNISolone 40 mg Vial IVP SCH ×4 (05:25→22:46)
[2018-02-04] MEDS ORDERED: Oxycodone/Acetaminophen 5/325 mg Tab PO SCH (06:00)
[2018-02-04 09:10] LABS: EOS % 0.1 % (1.5-5.0); GRAN % 91.7 % (50.0-68.0); HEMOGLOBIN 10.9 g/dL (12.0-16.0); LYMPH # 0.5 (1.2-3.4); LYMPH % 6.3 % (22.0-35.0); MEAN CORPUSCULAR HEMOGLOBIN 28.3 pg (25.0-35.0); MEAN CORPUSCULAR HGB CONC 32.5 g/dl (31.0-37.0); MEAN PLATELET VOLUME 8.4 fl (7.0-11.0); MONO # 0.1 (0.1-0.6); MONO % 1.9 % (1.0-6.0); PLATELET COUNT 293 10^3/uL (120.0-450.0); RBC 3.85 10^6/uL (3.5-6.1); RED CELL DISTRIBUTION WIDTH 15.3 % (11.5-14.5); WHITE BLOOD COUNT 7.2 10^3/ul (4.5-11.0)
[2018-02-04 09:30] LABS: ALB/GLOB RATIO 1.2 (1.1-1.8); ALBUMIN 3.6 g/dL (3.0-4.8); ALT/SGPT 35 U/L (7-56); AST/SGOT 32 U/L (14-36); BLOOD UREA NITROGEN 3 mg/dL (7-21); CALCIUM 8.9 mg/dL (8.4-10.5); GFR NON-AFRICAN AMERICAN > 60
[2018-02-04 09:34] LABS: INR 1.35; PROTHROMBIN TIME 15.6 SECONDS (9.4-12.5)
[2018-02-04 09:58] LABS: BAND 3 % (0-2); EOSINOPHIL 1 % (0.0-3.0); LYMPHOCYTE 7 % (22.0-35.0); MONOCYTE 1 % (1.0-6.0); NEUTROPHIL 88 % (50.0-70.0)
[2018-02-04] MEDS ORDERED: Enoxaparin 40 mg Syringe SC SCH (10:00)
[2018-02-04] MEDS: Divalproex 250 mg DR (BID formulation) PO SCH ×2 (10:29→17:40)
--- NOTE | 2018-02-04 10:34 | RAD ---
Date of service: 02/04/2018 HISTORY: copd COMPARISON: 01/09/2018 FINDINGS: LUNGS: There is scarring at the right lung base. The lungs are otherwise clear PLEURA: No significant pleural effusion identified, no pneumothorax apparent. CARDIOVASCULAR: Normal. OSSEOUS STRUCTURES: No significant abnormalities. VISUALIZED UPPER ABDOMEN: Normal. OTHER FINDINGS: There is a left subclavian Port-A-Cath IMPRESSION: No active disease.
[2018-02-04] MEDS: Vancomycin 1.5 GM in Sodium Chloride 0.9% 500 ML IVPB SCH ×2 (11:45→22:56)
[2018-02-04] MEDS: oxyCODONE 30 mg Immediate Release Tab PO PRN ×3 (11:49→23:37)
[2018-02-04 12:32] LABS: BARBITURATES, UR NEGATIVE (NEGATIVE); BENZODIAZEPINES, UR NEGATIVE (NEGATIVE); OPIATES, UR POSITIVE (NEGATIVE); PHENCYCLIDINE, UR NEGATIVE (NEGATIVE)
--- NOTE | 2018-02-04 15:12 | CP.PCM.CON ---
History of Present Illness - History of Present Illness History of Present Illness: 52 year old female with PMH of COPD, obesity with BM 34, pulmonary emboli S/P IVC filter placement 2 months ago and currently on anticoagulation, lung cancer S/P right upper lobectomy and S/P chemotherapy, schizoaffective disorder [place] [facility] [place] of right breast swelling as well as right arm swelling for the past week which has been progressively getting worse. She noted pain and erythema as well on the arm. She denies injecting anything into the arm, denies fever or chills, no nausea or vomiting, no chest pain, no SOB, no headache or dizziness, no abdominal pain. She is also starting to have swelling of the left arm as well. Infectious Diseases consult is requested to further evaluate and manage. Review of Systems - Review of Systems All systems: reviewed and no additional remarkable complaints except (as per HPI) Past Patient History - Infectious Disease Hx of Infectious Diseases: None - Tetanus Immunizations Tetanus Immunization: Unknown - Past Medical History & Family History Past Medical History?: Yes - Past Social History Smoking Status: Smoker Currrent Status Unknown - CARDIAC Hx Cardiac Disorders: No Hx Angina: No Hx Cardia Arrhythmia: No Hx Circulatory Problems: No Hx Congestive Heart Failure: No Hx Heart Murmur: No Hx Heart Transplant: No Hx Hypercholesterolemia: No Hx Hypertension: No Hx Internal Defibrillator: No Hx Mitral Valve Prolapse: No Hx Pacemaker: No Hx Peripheral Edema: No Hx Peripheral Vascular Disease: No - PULMONARY Hx Respiratory Disorders: No Hx Asthma: No Hx Bronchitis: No Hx Chronic Obstructive Pulmonary Disease (COPD): Yes Hx Emphysema: No Hx Pneumonia: No Hx Respiratory Aspiration: No Hx Respiratory Tract Infection: No Hx Sleep Apnea: No Hx Tuberculosis: No - NEUROLOGICAL Hx Neurological Disorder: No Hx Alzheimer's Disease: No HX Cerebrovascular Accident: No Hx Dementia: No Hx Dizziness: Yes Hx Meningitis: No Hx Migraine: No Hx Parkinson's Disease: No Hx Seizures: No Hx Transient Ischemic Attacks (TIA): No - HEENT Hx HEENT Problems: No Hx Blind: No Hx Cataracts: No Hx Deafness: No Hx Difficulty Chewing: No Hx Epistaxis: No Hx Glaucoma: No Hx Macular Degeneration: No - RENAL Hx Chronic Kidney Disease: No Hx Dialysis: No Hx Kidney Stones: No Hx Neurogenic Bladder: No Hx Pyelonephritis: No Hx Renal (Kidney) Cancer: No Hx Renal Failure: No - ENDOCRINE/METABOLIC Hx Endocrine Disorders: No Hx Adrenal Cancer: No Hx Diabetes Insipidus: No Hx Diabetes Mellitus Type 1: No Hx Diabetes Mellitus Type 2: No Hx Hyperthyroidism: No Hx Hypothyroidism: No Hx Systemic Lupus Erythematosus: No - HEMATOLOGICAL/ONCOLOGICAL Hx Blood Disorders: No Hx AIDS: No Hx Anemia: No Hx Cancer: No Hx Chemotherapy: No Hx Cirrhosis: No Hx Hemophilia: No Hx Hepatitis A: No Hx Hepatitis B: No Hx Hepatitis C: No Hx Human Immunodeficiency Virus (HIV): No Hx Metastesis: No Hx Shingles: No Hx Sickle Cell Disease: No Hx Unexplained Bleeding: No - INTEGUMENTARY Hx Dermatological Problems: No Hx Basil Cell: No Hx Eczema: No Hx Melanoma: No - MUSCULOSKELETAL/RHEUMATOLOGICAL Hx Musculoskeletal Disorders: No Hx Arthritis: Yes Hx Back Pain: No Hx Degenerative Joint Disease: No Hx Falls: No Hx Fractures: No Hx Gout: No Hx Herniated Disk: Yes Hx Myasthenia Gravis: No Hx Osteoarthritis: No Hx Osteomyelitis: No Hx Osteoporosis: No Hx Rhabdomyolysis: No Hx Spinal Stenosis: No Hx Unsteady Gait: No - GASTROINTESTINAL Hx Gastrointestinal Disorders: No Hx Colostomy: No Hx Crohn's Disease: No Hx Diverticulitis: No Hx Gall Bladder Disease: No Hx Gastroesophageal Reflux: No Hx Ileostomy: No Hx Liver Failure: No Hx Pancreatitis: No HX Swallowing Problems: No Hx Ulcer: No - GENITOURINARY/GYNECOLOGICAL Hx Genitourinary Disorders: No Hx Hematuria: No Hx Incontinence: No Hx Sexually Transmitted Disorders: No Hx Urinary Tract Infection: No - PSYCHIATRIC Hx Psychophysiologic Disorder: No Hx Anxiety: No Hx Bipolar Disorder: Yes Hx Depression: Yes Hx Emotional Abuse: No Hx Hallucinations: No Hx Panic Symptoms: No Hx Paranoia: No Hx Post Traumatic Stress Disorder: No Hx Psychosis: No Hx Physical Abuse: No Hx Schizophrenia: No Hx Sexual Abuse: No - SURGICAL HISTORY Hx Surgeries: No Hx Amputation: No Hx Appendectomy: No Hx Cardiac Catheterization: No Hx Cholecystectomy: No Hx Coronary Stent: No Hx Gastric Bypass Surgery: No Hx Hysterectomy: No Hx Joint Replacement: No Hx Kidney Transplant: No Hx Liver Transplant: No Hx Mastectomy: No Hx Musculoskeletal Surgery: No Hx Open Heart Surgery: No Hx Orthopedic Surgery: No Hx Splenectomy: No Hx Valve Replacement: No - ANESTHESIA Hx Anesthesia: Yes Meds Allergies/Adverse Reactions: Allergies Allergy/AdvReac Type Severity Reaction Status Date / Time aspirin Allergy Severe ANAPHYLAXIS Verified 09/11/18 11:46 Penicillins Allergy Severe ANAPHYLAXIS Verified 01/09/18 11:46 - Medications Medications: Current Medications Albuterol/Ipratropium (Duoneb 3 Mg/0.5 Mg (3 Ml) Ud) 3 ml IH Q2H PRN PRN Reason: Shortness of Breath Divalproex Sodium (Depakote Dr (*Bid*)) 250 mg PO BID SOPHIA; Protocol Guaifenesin (Robitussin) 200 mg PO Q4H PRN PRN Reason: Cough and congestion Vancomycin HCl 1.5 gm/ Sodium (Chloride) 500 mls @ 167 mls/hr IVPB Q12H SOPHIA; Protocol Ketorolac Tromethamine (Toradol) 30 mg IVP Q4H PRN PRN Reason: Pain, moderate (4-7) Methylprednisolone (Solu-Medrol) 40 mg IVP Q8 SOPHIA Last Admin: 02/04/18 07:06 Dose: 40 mg Oxycodone/Acetaminophen (Percocet 5/325 Mg Tab) 1 tab PO Q6 SOPHIA Stop: 02/07/18 06:01 Last Admin: 02/04/18 07:04 Dose: Not Given Pantoprazole Sodium (Protonix Inj) 40 mg IVP DAILY [facility] Risperidone (Risperdal Tab) 0.5 mg PO BID SOPHIA; Protocol Rivaroxaban (Xarelto) 20 mg PO DAILY SOPHIA; Protocol Physical Exam - Constitutional Appears: No Acute Distress, Chronically Ill - Head Exam Head Exam: NORMAL INSPECTION - Neck Exam Neck exam: Negative for: Meningismus - Respiratory Exam Respiratory Exam: Decreased Breath Sounds - Cardiovascular Exam Cardiovascular Exam: +S1, +S2 - GI/Abdominal Exam GI & Abdominal Exam: Soft. absent: Tenderness - Extremities Exam Additional comments: right arm and breast with swelling and erythema noted Results - Vital Signs Recent Vital Signs: Last Vital Signs Temp 98.3 F 02/03/18 23:30 Pulse 109 H 02/03/18 23:30 Resp 18 02/04/18 06:24 BP 121/71 02/03/18 23:30 Pulse Ox 98 02/03/18 23:30 - Labs Result Diagrams: 02/04/18 08:30 02/04/18 08:30 Labs: Laboratory Results - last 24 hr 02/04/18 02/04/18 02/04/18 01:55 01:55 01:55 WBC 5.9 D RBC 3.79 Hgb 10.6 L Hct 32.7 L MCV 86.3 MCH 28.0 MCHC 32.4 RDW 15.2 H Plt Count 309 MPV 8.6 PT 16.1 H INR 1.40 APTT 31.8 Sodium 137 Potassium 3.7 Chloride 102 Carbon Dioxide 27 Anion Gap 12 BUN 2 L Creatinine 0.8 Est GFR ( Amer) > 60 Est GFR (Non-Af Amer) > 60 Random Glucose 97 Calcium 8.8 Total Bilirubin 0.6 AST 30 ALT 33 Alkaline Phosphatase 85 Lactate Dehydrogenase 661 Total Creatine Kinase 233 H CK-MB (CK-2) 2.8 CK-MB (CK-2) % Cancelled Troponin I < 0.01 Total Protein 6.6 Albumin 3.6 Globulin 3.1 Albumin/Globulin Ratio 1.2 Assessment & Plan - Assessment and Plan (Free Text) Plan: Assessment consider right arm DVT R/O lymphangitis associated with the right breast, R/O cellulitis history of Corynebacterium in blood cx bottles (from 01/03/2018), probably contamination S/P port placement on the left anterior chest wall Probable acute exacerbation of COPD, R/O pneumonia obesity with BM 34 pulmonary emboli S/P IVC filter placement 2 months ago and currently on anticoagulation lung cancer S/P right upper lobectomy and S/P chemotherapy Plan will start IV Vancomycin and follow up blood cx, ultrasound of the right arm; will also need imaging of the the right breast will monitor clinically
[2018-02-04] MEDS: guaiFENesin 200 mg/10 ml Syrup UD PO PRN ×2 (15:50→20:18)
--- NOTE | 2018-02-04 19:59 | US ---
PROCEDURE: Right upper extremity venous US CLINICAL HISTORY: Arm pain and swelling Evaluate for deep venous thrombosis. PHYSICIAN(S): Roberto Schwarz M.D FINDINGS: The right internal jugular vein and visualized right subclavian vein are patent and normal. There is chronic occlusive thrombus in the right brachial vein above the elbow. IMPRESSION: 1. Chronic occlusive thrombus in the right brachial vein above the elbow 2. The right internal jugular vein, right subclavian vein, right axillary vein are patent
[2018-02-04] MEDS: Albuterol-Ipratrop 3 mg / 0.5 (3 ml) UD IH PRN (22:49)
[2018-02-05] MEDS: Albuterol-Ipratrop 3 mg / 0.5 (3 ml) UD IH PRN ×4 (03:03→19:30)
[2018-02-05] MEDS: oxyCODONE 30 mg Immediate Release Tab PO PRN ×3 (05:38→19:48)
[2018-02-05] MEDS: MethylPREDNISolone 40 mg Vial IVP SCH ×3 (05:38→23:13)
[2018-02-05 06:43] LABS: GRAN # 6.68 (1.4-6.5); GRAN % 87.8 % (50.0-68.0); LYMPH # 0.6 (1.2-3.4); MEAN CELL VOLUME 85.7 fl (80.0-105.0); MEAN CORPUSCULAR HEMOGLOBIN 28.1 pg (25.0-35.0); MEAN CORPUSCULAR HGB CONC 32.8 g/dl (31.0-37.0); MEAN PLATELET VOLUME 8.4 fl (7.0-11.0); MONO # 0.3 (0.1-0.6); MONO % 4.2 % (1.0-6.0); RBC 3.56 10^6/uL (3.5-6.1); WHITE BLOOD COUNT 7.6 10^3/ul (4.5-11.0)
[2018-02-05 06:45] LABS: INR 1.42; PROTHROMBIN TIME 16.5 SECONDS (9.4-12.5)
[2018-02-05 07:34] LABS: ALB/GLOB RATIO 1.1 (1.1-1.8); ALBUMIN 3.5 g/dL (3.0-4.8); ALT/SGPT 42 U/L (7-56); AST/SGOT 51 U/L (14-36); BLOOD UREA NITROGEN 7 mg/dL (7-21); CALCIUM 9.2 mg/dL (8.4-10.5); GFR NON-AFRICAN AMERICAN > 60
--- NOTE | 2018-02-05 12:31 | US ---
PROCEDURE: Left upper extremity venous ultrasound HISTORY: Arm pain and swelling. Evaluate for deep venous thrombosis. PHYSICIAN(S): Roberto Schwarz MD. FINDINGS: The visualized leftinternal jugular vein is sonographically normal and compressible. No evidence of obstruction or thrombus is seen. The visualized segments of the left subclavian vein are patent with normal waveforms. No sonographic evidence of obstruction or thrombosis is seen. The visualized deep venous system of the proximal leftupper extremity is sonographically normal and compressible. IMPRESSION: 1. No sonographic evidence for deep venous thrombosis in the visualized segments of the left upper extremity.
--- NOTE | 2018-02-05 13:01 | US ---
Date of service: 02/05/2018 PROCEDURE: Diagnostic right breast ultrasound examination HISTORY: rule out abscess COMPARISON: Not available TECHNIQUE: Ultrasound examination was performed throughout the right breast and axilla. FINDINGS: No solid or cystic mass is identified throughout the right breast. There is extensive subcutaneous edema throughout the breast. There is no axillary lymphadenopathy. IMPRESSION: No sonographic evidence of malignancy. No abscess identified. BIRADS 2 Benign finding Recommendation: Continue annual screening mammography, as per ACR guidelines.
[2018-02-05] MEDS: Vancomycin 1.5 GM in Sodium Chloride 0.9% 500 ML IVPB SCH ×2 (13:31→23:13)
[2018-02-05] MEDS: Divalproex 250 mg DR (BID formulation) PO SCH ×2 (13:33→18:34)
[2018-02-05] MEDS ORDERED: Albuterol-Ipratrop 3 mg / 0.5 (3 ml) UD IH STA (16:37)
[2018-02-05] MEDS: guaiFENesin 200 mg/10 ml Syrup UD PO PRN ×2 (18:39→23:13)
[2018-02-05] MEDS ORDERED: Levalbuterol 1.25 MG/3 ML Inhal Soln UD IH STA (19:48)
[2018-02-06] MEDS: Albuterol-Ipratrop 3 mg / 0.5 (3 ml) UD IH PRN ×5 (00:15→22:31)
[2018-02-06] MEDS: oxyCODONE 30 mg Immediate Release Tab PO PRN ×4 (01:32→20:09)
[2018-02-06] MEDS: guaiFENesin 200 mg/10 ml Syrup UD PO PRN ×2 (04:54→22:01)
[2018-02-06] MEDS: MethylPREDNISolone 40 mg Vial IVP SCH ×4 (04:55→22:01)
--- NOTE | 2018-02-06 06:50 | CP.PCM.PN ---
<Michelle Gallagher - Last Filed: 02/06/18 06:50> Subjective - Date & Time of Evaluation Date of Evaluation: 02/06/18 Time of Evaluation: 06:50 - Subjective Subjective: INTERNAL MEDICINE PROGRESS NOTE FOR DR. KITTY Gallagher D.O. PGY-1 Objective - Vital Signs/Intake and Output Vital Signs (last 24 hours): Temp Pulse Resp BP Pulse Ox 98 F 113 H 20 123/70 96 02/05/18 23:18 02/05/18 23:18 02/05/18 23:18 02/05/18 23:18 02/05/18 23:18 Intake and Output: 02/05/18 02/06/18 18:59 06:59 Intake Total 600 600 Balance 600 600 - Medications Medications: Current Medications Albuterol/Ipratropium (Duoneb 3 Mg/0.5 Mg (3 Ml) Ud) 3 ml IH Q2H PRN PRN Reason: Shortness of Breath Last Admin: 02/06/18 05:00 Dose: 3 ml Divalproex Sodium (Depakote Dr (*Bid*)) 250 mg PO BID [facility]; Protocol Last Admin: 02/05/18 18:34 Dose: 250 mg Guaifenesin (Robitussin) 200 mg PO Q4H PRN PRN Reason: Cough and congestion Last Admin: 02/06/18 04:54 Dose: 200 mg Vancomycin HCl 1.5 gm/ Sodium (Chloride) 500 mls @ 167 mls/hr IVPB Q12H [facility]; Protocol Last Admin: 02/05/18 23:13 Dose: 167 mls/hr Methylprednisolone (Solu-Medrol) 40 mg IVP Q8 [facility] Last Admin: 02/06/18 04:55 Dose: 40 mg Nicotine (Nicoderm Cq) 1 patch TD DAILY [facility] Last Admin: 02/05/18 13:33 Dose: 1 patch Oxycodone HCl (Oxycodone Immediate Release Tab) 30 mg PO Q6H PRN PRN Reason: Pain, severe (8-10) Last Admin: 02/06/18 01:32 Dose: 30 mg Pantoprazole Sodium (Protonix Ec Tab) 40 mg PO ACB [facility] Risperidone (Risperdal Tab) 0.5 mg PO BID [facility]; Protocol Last Admin: 02/05/18 18:34 Dose: 0.5 mg Rivaroxaban (Xarelto) 20 mg PO DAILY [facility]; Protocol Last Admin: 02/05/18 13:33 Dose: 20 mg - Labs Labs: 02/05/18 06:20 02/05/18 06:20 PT 16.5 SECONDS (9.4-12.5) H 02/05/18 06:20 INR 1.42 02/05/18 06:20 APTT 31.8 Seconds (25.1-36.5) 02/04/18 01:55 <Callie Tafoya R - Last Filed: 02/06/18 07:38> Objective - Vital Signs/Intake and Output Vital Signs (last 24 hours): Temp Pulse Resp BP Pulse Ox 98 F 113 H 20 123/70 96 02/05/18 23:18 02/05/18 23:18 02/05/18 23:18 02/05/18 23:18 02/05/18 23:18 Intake and Output: 02/06/18 02/06/18 06:59 18:59 Intake Total 600 Balance 600 - Medications Medications: Current Medications Albuterol/Ipratropium (Duoneb 3 Mg/0.5 Mg (3 Ml) Ud) 3 ml IH Q2H PRN PRN Reason: Shortness of Breath Last Admin: 02/06/18 05:00 Dose: 3 ml Divalproex Sodium (Depakote Dr (*Bid*)) 250 mg PO BID [facility]; Protocol Last Admin: 02/05/18 18:34 Dose: 250 mg Guaifenesin (Robitussin) 200 mg PO Q4H PRN PRN Reason: Cough and congestion Last Admin: 02/06/18 04:54 Dose: 200 mg Vancomycin HCl 1.5 gm/ Sodium (Chloride) 500 mls @ 167 mls/hr IVPB Q12H [facility]; Protocol Last Admin: 02/05/18 23:13 Dose: 167 mls/hr Methylprednisolone (Solu-Medrol) 40 mg IVP Q8 [facility] Last Admin: 02/06/18 04:55 Dose: 40 mg Nicotine (Nicoderm Cq) 1 patch TD DAILY [facility] Last Admin: 02/05/18 13:33 Dose: 1 patch Oxycodone HCl (Oxycodone Immediate Release Tab) 30 mg PO Q6H PRN PRN Reason: Pain, severe (8-10) Last Admin: 02/06/18 01:32 Dose: 30 mg Pantoprazole Sodium (Protonix Ec Tab) 40 mg PO ACB [facility] Risperidone (Risperdal Tab) 0.5 mg PO BID [facility]; Protocol Last Admin: 02/05/18 18:34 Dose: 0.5 mg Rivaroxaban (Xarelto) 20 mg PO DAILY [facility]; Protocol Last Admin: 02/05/18 13:33 Dose: 20 mg - Labs Labs: 02/05/18 06:20 02/05/18 06:20 PT 16.5 SECONDS (9.4-12.5) H 02/05/18 06:20 INR 1.42 02/05/18 06:20 APTT 31.8 Seconds (25.1-36.5) 02/04/18 01:55 Attending/Attestation - Attestation Notes (Text): In error, please disregard
--- NOTE | 2018-02-06 06:50 | CP.PCM.PN ---
<Michelle Gallagher - Last Filed: 02/06/18 06:49> Subjective - Date & Time of Evaluation Date of Evaluation: 02/05/18 Time of Evaluation: 11:00 - Subjective Subjective: INTERNAL MEDICINE PROGRESS NOTE FOR DR. KITTY Gallagher D.O. PGY-1 Objective - Vital Signs/Intake and Output Vital Signs (last 24 hours): Temp Pulse Resp BP Pulse Ox 98 F 113 H 20 123/70 96 02/05/18 23:18 02/05/18 23:18 02/05/18 23:18 02/05/18 23:18 02/05/18 23:18 Intake and Output: 02/05/18 02/06/18 18:59 06:59 Intake Total 600 600 Balance 600 600 - Medications Medications: Current Medications Albuterol/Ipratropium (Duoneb 3 Mg/0.5 Mg (3 Ml) Ud) 3 ml IH Q2H PRN PRN Reason: Shortness of Breath Last Admin: 02/06/18 05:00 Dose: 3 ml Divalproex Sodium (Depakote Dr (*Bid*)) 250 mg PO BID [facility]; Protocol Last Admin: 02/05/18 18:34 Dose: 250 mg Guaifenesin (Robitussin) 200 mg PO Q4H PRN PRN Reason: Cough and congestion Last Admin: 02/06/18 04:54 Dose: 200 mg Vancomycin HCl 1.5 gm/ Sodium (Chloride) 500 mls @ 167 mls/hr IVPB Q12H [facility]; Protocol Last Admin: 02/05/18 23:13 Dose: 167 mls/hr Methylprednisolone (Solu-Medrol) 40 mg IVP Q8 [facility] Last Admin: 02/06/18 04:55 Dose: 40 mg Nicotine (Nicoderm Cq) 1 patch TD DAILY [facility] Last Admin: 02/05/18 13:33 Dose: 1 patch Oxycodone HCl (Oxycodone Immediate Release Tab) 30 mg PO Q6H PRN PRN Reason: Pain, severe (8-10) Last Admin: 02/06/18 01:32 Dose: 30 mg Pantoprazole Sodium (Protonix Ec Tab) 40 mg PO ACB [facility] Risperidone (Risperdal Tab) 0.5 mg PO BID [facility]; Protocol Last Admin: 02/05/18 18:34 Dose: 0.5 mg Rivaroxaban (Xarelto) 20 mg PO DAILY [facility]; Protocol Last Admin: 02/05/18 13:33 Dose: 20 mg - Labs Labs: 02/05/18 06:20 02/05/18 06:20 PT 16.5 SECONDS (9.4-12.5) H 02/05/18 06:20 INR 1.42 02/05/18 06:20 APTT 31.8 Seconds (25.1-36.5) 02/04/18 01:55 <Callie Tafoya R - Last Filed: 02/06/18 07:37> Objective - Vital Signs/Intake and Output Vital Signs (last 24 hours): Temp Pulse Resp BP Pulse Ox 98 F 113 H 20 123/70 96 02/05/18 23:18 02/05/18 23:18 02/05/18 23:18 02/05/18 23:18 02/05/18 23:18 Intake and Output: 02/06/18 02/06/18 06:59 18:59 Intake Total 600 Balance 600 - Medications Medications: Current Medications Albuterol/Ipratropium (Duoneb 3 Mg/0.5 Mg (3 Ml) Ud) 3 ml IH Q2H PRN PRN Reason: Shortness of Breath Last Admin: 02/06/18 05:00 Dose: 3 ml Divalproex Sodium (Depakote Dr (*Bid*)) 250 mg PO BID [facility]; Protocol Last Admin: 02/05/18 18:34 Dose: 250 mg Guaifenesin (Robitussin) 200 mg PO Q4H PRN PRN Reason: Cough and congestion Last Admin: 02/06/18 04:54 Dose: 200 mg Vancomycin HCl 1.5 gm/ Sodium (Chloride) 500 mls @ 167 mls/hr IVPB Q12H [facility]; Protocol Last Admin: 02/05/18 23:13 Dose: 167 mls/hr Methylprednisolone (Solu-Medrol) 40 mg IVP Q8 [facility] Last Admin: 02/06/18 04:55 Dose: 40 mg Nicotine (Nicoderm Cq) 1 patch TD DAILY [facility] Last Admin: 02/05/18 13:33 Dose: 1 patch Oxycodone HCl (Oxycodone Immediate Release Tab) 30 mg PO Q6H PRN PRN Reason: Pain, severe (8-10) Last Admin: 02/06/18 01:32 Dose: 30 mg Pantoprazole Sodium (Protonix Ec Tab) 40 mg PO ACB [facility] Risperidone (Risperdal Tab) 0.5 mg PO BID [facility]; Protocol Last Admin: 02/05/18 18:34 Dose: 0.5 mg Rivaroxaban (Xarelto) 20 mg PO DAILY [facility]; Protocol Last Admin: 02/05/18 13:33 Dose: 20 mg - Labs Labs: 02/05/18 06:20 02/05/18 06:20 PT 16.5 SECONDS (9.4-12.5) H 02/05/18 06:20 INR 1.42 02/05/18 06:20 APTT 31.8 Seconds (25.1-36.5) 02/04/18 01:55 Attending/Attestation - Attestation Notes (Text): In error, please disregard
[2018-02-06] MEDS: Pantoprazole 40 mg EC Tab PO SCH (07:55)
[2018-02-06 08:28] LABS: GRAN # 9.66 (1.4-6.5); GRAN % 90.4 % (50.0-68.0); HEMOGLOBIN 10.4 g/dL (12.0-16.0); LYMPH # 0.7 (1.2-3.4); LYMPH % 6.5 % (22.0-35.0); MEAN CELL VOLUME 86.5 fl (80.0-105.0); MEAN CORPUSCULAR HGB CONC 32.4 g/dl (31.0-37.0); MEAN PLATELET VOLUME 8.3 fl (7.0-11.0); MONO # 0.3 (0.1-0.6); MONO % 3.1 % (1.0-6.0); RBC 3.71 10^6/uL (3.5-6.1); RED CELL DISTRIBUTION WIDTH 15.4 % (11.5-14.5); WHITE BLOOD COUNT 10.7 10^3/ul (4.5-11.0)
[2018-02-06 08:41] LABS: INR 1.24; PROTHROMBIN TIME 14.3 SECONDS (9.4-12.5)
[2018-02-06 08:45] LABS: ALB/GLOB RATIO 1.2 (1.1-1.8); ALBUMIN 3.9 g/dL (3.0-4.8); ALT/SGPT 70 U/L (7-56); AST/SGOT 57 U/L (14-36); BLOOD UREA NITROGEN 10 mg/dL (7-21); CALCIUM 9.2 mg/dL (8.4-10.5); GFR NON-AFRICAN AMERICAN > 60
[2018-02-06] MEDS: Vancomycin 1.5 GM in Sodium Chloride 0.9% 500 ML IVPB SCH ×2 (10:57→22:01)
[2018-02-06] MEDS: Divalproex 250 mg DR (BID formulation) PO SCH ×2 (10:59→18:39)
--- NOTE | 2018-02-06 17:05 | CP.PCM.PN ---
Subjective - Date & Time of Evaluation Date of Evaluation: 02/06/18 Time of Evaluation: 11:50 - Subjective Subjective: Comfortable, no fevers, right arm swelling is better and continues to improve. Objective - Vital Signs/Intake and Output Vital Signs (last 24 hours): Temp Pulse Resp BP Pulse Ox 97.4 F L 100 H 20 128/81 98 02/06/18 07:00 02/06/18 07:00 02/06/18 07:00 02/06/18 07:00 02/06/18 07:00 Intake and Output: 02/06/18 02/06/18 06:59 18:59 Intake Total 600 Balance 600 - Medications Medications: Current Medications Albuterol/Ipratropium (Duoneb 3 Mg/0.5 Mg (3 Ml) Ud) 3 ml IH Q2H PRN PRN Reason: Shortness of Breath Last Admin: 02/06/18 05:00 Dose: 3 ml Divalproex Sodium (Depakote Dr (*Bid*)) 250 mg PO BID [facility]; Protocol Last Admin: 02/05/18 18:34 Dose: 250 mg Guaifenesin (Robitussin) 200 mg PO Q4H PRN PRN Reason: Cough and congestion Last Admin: 02/06/18 04:54 Dose: 200 mg Vancomycin HCl 1.5 gm/ Sodium (Chloride) 500 mls @ 167 mls/hr IVPB Q12H [facility]; Pr otocol Last Admin: 02/05/18 23:13 Dose: 167 mls/hr Methylprednisolone (Solu-Medrol) 40 mg IVP Q8 [facility] Last Admin: 02/06/18 04:55 Dose: 40 mg Nicotine (Nicoderm Cq) 1 patch TD DAILY [facility] Last Admin: 02/05/18 13:33 Dose: 1 patch Oxycodone HCl (Oxycodone Immediate Release Tab) 30 mg PO Q6H PRN PRN Reason: Pain, severe (8-10) Last Admin: 02/06/18 07:54 Dose: 30 mg Pantoprazole Sodium (Protonix Ec Tab) 40 mg PO ACB [facility] Last Admin: 02/06/18 07:55 Dose: 40 mg Risperidone (Risperdal Tab) 0.5 mg PO BID [facility]; Protocol Last Admin: 02/05/18 18:34 Dose: 0.5 mg Rivaroxaban (Xarelto) 20 mg PO DAILY [facility]; Protocol Last Admin: 02/05/18 13:33 Dose: 20 mg - Labs Labs: 02/06/18 08:10 02/06/18 08:10 PT 14.3 SECONDS (9.4-12.5) H 02/06/18 08:10 INR 1.24 02/06/18 08:10 APTT 31.8 Seconds (25.1-36.5) 02/04/18 01:55 - Constitutional Appears: No Acute Distress, Chronically Ill - Head Exam Head Exam: NORMAL INSPECTION - Respiratory Exam Respiratory Exam: Decreased Breath Sounds - Cardiovascular Exam Cardiovascular Exam: +S1, +S2 - GI/Abdominal Exam GI & Abdominal Exam: Soft. absent: Tenderness - Extremities Exam Additional comments: right arm with decreasing swelling Assessment and Plan - Assessment and Plan (Free Text) Plan: Assessment consider right arm DVT R/O lymphangitis associated with the right breast, with possible cellulitis, slowly improving history of Corynebacterium in blood cx bottles (from 01/03/2018), probably contamination S/P port placement on the left anterior chest wall Probable acute exacerbation of COPD, R/O pneumonia obesity with BM 34 pulmonary emboli S/P IVC filter placement 2 months ago and currently on anticoagulation lung cancer S/P right upper lobectomy and S/P chemotherapy Plan continue IV Vancomycin day 3 ; blood cx are negative, ultrasound of the right arm shows old clot; also reviewed imaging of the the right breast which showed subcutaneous edema will continue to monitor clinically
--- NOTE | 2018-02-06 18:30 | CON ---
DATE: 02/06/2018 ONCOLOGY CONSULTATION HISTORY OF PRESENT ILLNESS: This is a 52-year-old woman with several medical problems. 1. I was treating her for lung cancer. She is status post resection, followed by metastasis to mediastinum. She received radiation therapy to that area after the lobectomy. She has been cancer free now for about a year and a half to 2 years now. 2. She has had multiple pulmonary emboli. She was admitted to [facility] several times. She had been on Coumadin, but never had an adequate Coumadin level. Finally, they recently put a filter into her and also she has been on Xarelto or Eliquis, and she states that she takes them. 3. The patient has asthma and frequently admitted to the various medical centers, [facility] and [place] most of the time for exacerbation of asthma. 4. The patient came to the office recently and complaining of very swollen right breast and right arm and it was a little warm. I told her to go to the emergency room. 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 PHYSICAL EXAMINATION: Today; SKIN: No petechiae. No bruises. HEENT: Anicteric. NODES: Nonpalpable in the axillary, cervical, and supraclavicular regions. LUNGS: Show diffuse wheezing and scattered, but no rhonchi or rales. HEART: S1 and S2. ABDOMEN: Shows no liver, no spleen, no tenderness. EXTREMITIES: No edema of the legs. [employer]: No focal finding. Her right upper arm is markedly improved. The cellulitis has really gone. She states that it is much and the breast is clearly better. She is continued on vancomycin. She knows to come to my office when she is discharged in about 2 weeks after she was discharged. She also is on narcotics for her pain. I no longer give her any medication for pain control. She has been to multiple pain centers and I leave it to her to be treated by the pain centers . Lui Beck MD [facility] # [id number]
--- NOTE | 2018-02-06 20:04 | CP.PCM.PN ---
<Michelle Gallagher - Last Filed: 02/06/18 20:10> Subjective - Date & Time of Evaluation Date of Evaluation: 02/05/18 Time of Evaluation: 07:00 - Subjective Subjective: INTERNAL MEDICINE PROGRESS NOTE FOR DR. KITTY GoldenO. PGY-1 Pt seen and examined at bedside this am. Pt continues to complain of swelling and pain in R arm that is relieved with oxycode that she has been receiving. She also complains of continues of wheezing alleviated with duoneb treatment. She denies fevers, chills, headache, dizziness, chest pain, palpitations, nausea, vomiting, constipation, diarrhea, dysuria. Objective - Vital Signs/Intake and Output Vital Signs (last 24 hours): Temp Pulse Resp BP Pulse Ox 97.6 F 106 H 20 138/76 96 02/06/18 14:00 02/06/18 14:00 02/06/18 14:00 02/06/18 14:00 02/06/18 14:00 Intake and Output: 02/06/18 02/07/18 18:59 06:59 Intake Total 2360 Balance 2360 - Medications Medications: Current Medications Albuterol/Ipratropium (Duoneb 3 Mg/0.5 Mg (3 Ml) Ud) 3 ml IH Q2H PRN PRN Reason: Shortness of Breath Last Admin: 02/06/18 14:07 Dose: 3 ml Divalproex Sodium (Depakote Dr (*Bid*)) 250 mg PO BID [facility]; Protocol Last Admin: 02/06/18 18:39 Dose: 250 mg Guaifenesin (Robitussin) 200 mg PO Q4H PRN PRN Reason: Cough and congestion Last Admin: 02/06/18 04:54 Dose: 200 mg Vancomycin HCl 1.5 gm/ Sodium (Chloride) 500 mls @ 167 mls/hr IVPB Q12H [facility]; Protocol Last Admin: 02/06/18 10:57 Dose: 167 mls/hr Methylprednisolone (Solu-Medrol) 40 mg IVP Q8 [facility] Last Admin: 02/06/18 14:10 Dose: 40 mg Nicotine (Nicoderm Cq) 1 patch TD DAILY [facility] Last Admin: 02/06/18 10:58 Dose: 1 patch Oxycodone HCl (Oxycodone Immediate Release Tab) 30 mg PO Q6H PRN PRN Reason: Pain, severe (8-10) Last Admin: 02/06/18 14:10 Dose: 30 mg Pantoprazole Sodium (Protonix Ec Tab) 40 mg PO ACB [facility] Last Admin: 02/06/18 07:55 Dose: 40 mg Risperidone (Risperdal Tab) 0.5 mg PO BID [facility]; Protocol Last Admin: 02/06/18 18:40 Dose: 0.5 mg Rivaroxaban (Xarelto) 20 mg PO DAILY [facility]; Protocol Last Admin: 02/06/18 10:59 Dose: 20 mg - Labs Labs: 02/06/18 08:10 02/06/18 08:10 PT 14.3 SECONDS (9.4-12.5) H 02/06/18 08:10 INR 1.24 02/06/18 08:10 APTT 31.8 Seconds (25.1-36.5) 02/04/18 01:55 - Constitutional Appears: Well, Non-toxic, No Acute Distress - Head Exam Head Exam: ATRAUMATIC, NORMAL INSPECTION - Eye Exam Eye Exam: EOMI, Normal appearance - ENT Exam ENT Exam: Mucous Membranes Moist, Normal Exam - Neck Exam Neck Exam: Normal Inspection. absent: Meningismus - Respiratory Exam Respiratory Exam: Wheezes (b/l), NORMAL BREATHING PATTERN - Cardiovascular Exam Cardiovascular Exam: Tachycardia, +S1, +S2 - GI/Abdominal Exam GI & Abdominal Exam: Soft, Normal Bowel Sounds. absent: Tenderness - Extremities Exam Extremities Exam: Normal Inspection. absent: Calf Tenderness Additional comments: RUE erythema, edema noted. - Back Exam Back Exam: NORMAL INSPECTION. absent: CVA tenderness (L), CVA tenderness (R) - Neurological Exam Neurological Exam: Alert, Awake, Oriented x3 - Psychiatric Exam Psychiatric exam: Normal Affect, Normal Mood - Skin Skin Exam: Dry, Intact, Warm Assessment and Plan - Assessment and Plan (Free Text) Assessment: 52 y/o female with PMHx of COPD, history of four pulmonary emboli over the past six months (currently on xarelto, s/p right IVC filter placement ~3 months ago), lung cancer (chemotherapy in 2014, after her right upper lobectomy, finished radiation therapy last year and is in remission for the past year), osteoarthritis, schizoaffective disorder admitted for R arm pain/swelling/erythema. 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 Pt started on IV vancomycin and continue on home xarelto Plan: Right upper extremity swelling/erythema Likely secondary to brachial vein DVT vs cellulitis Continue home xarelto for anticoagulation Continue day 2 vancomycin for R arm cellulitis Appreciate ID recs. Consider po abx upon discharge Consult pts own Heme-Onc: Dr. Beck. Appreciate recs COPD Start duoneb q2h prn Start solumedrol PRN Start guaifenasin prn cough Schizoaffective disorder Continue home depakote Continue home risperidone Cocaine use Advise cessation DVT/GI ppx: Xarelto, SCD/Protonix <Tafoya,Callie R - Last Filed: 02/09/18 07:50> Objective - Vital Signs/Intake and Output Vital Signs (last 24 hours): Temp Pulse Resp BP Pulse Ox 97.3 F L 83 18 123/73 96 02/08/18 06:00 02/08/18 06:00 02/08/18 06:00 02/08/18 06:00 02/08/18 06:00 - Labs Labs: 02/08/18 07:45 02/08/18 07:45 PT 14.2 SECONDS (9.4-12.5) H 02/08/18 07:45 INR 1.23 02/08/18 07:45 APTT 31.8 Seconds (25.1-36.5) 02/04/18 01:55 Attending/Attestation - Attestation I have personally seen and examined this patient.: Yes I have fully participated in the care of the patient.: Yes I have reviewed all pertinent clinical information, including history, physical exam and plan: Yes Notes (Text): Patient seen and examined by me at 2:05PM with resident 02/05/18. Case including HPI, physical exam, and assessment and plan discussed with resident. Agree with above with following additions/corrections. Patient is a 52-year-old female past medical history significant for COPD, pulmonary embolism status post IVC filter maintained on Xarelto, lung cancer status post chemotherapy and lobectomy, osteoarthritis, schizoaffective disorder, and cocaine and tobacco abuse that presented to the emergency room with right arm pain and swellling, and right breast pain and swelling. Patient states she is having pain in her right upper extremity and right breast pain. She feels it has not improved since admission. Patient also complains of some shortness of breath and wheezing. No nausea or vomiting. No chest pain or palpitations. No headaches or dizziness. No dysuria. No diarrhea or constipation. Physical exam: General: Awake and alert sitting up in bed in no acute distress HEENT: Normocephalic, atraumatic. Extraocular muscles intact. Pupils equal reactive. No scleral icterus. Oropharynx is pink and moist. No pharyngeal erythema or exudate appreciated. Neck is supple. Cardiovascular: Normal rhythm. Normal S1, S2. No murmurs, rubs, or gallops appreciated Pulmonary: Normal respiratory effort. Decreased breath sounds throughout. No rhonchi, rales, or wheezing appreciated. Gastrointestinal: Soft, nondistended. Nontender. Positive bowel sounds all 4 quadrants, no guarding. Musculoskeletal: Moves all extremities, no calf tenderness. RUE and right breast with edema, tender to palpation. Central nervous system: AAO x 3. CN 2-12 grossly intact. Dermatologic: Skin warm and dry. Assessment and plan: Patient is a 52-year-old female past medical history significant for COPD, pulmonary embolism status post IVC filter maintained on Xarelto, lung cancer status post chemotherapy and lobectomy, osteoarthritis, sc hizoaffective disorder, and cocaine and tobacco abuse that presented to the emergency room with right arm pain and swellling, and right breast pain and swelling. 1. Right upper extremity and right breast edema and cellulitis. Right upper extremity venous doppler per radiologist showed chronic occlusive thrombus in the right brachial vein above the elbow; right internal jugular vein, right subclavian vein, right axillary vein are patent. Right breast ultrasound per radiologist shows no sonographic evidence of malignancy, no abscess identified, BIRADS 2 benign finding. ID following, recommendations appreciated. Continue vancomycin. Continue Xarelto. Hematology/oncology consulted, follow-up re commendations. 2. COPD exacerbation. Continue nebulizer treatments. Continue Solu-Medrol. Continue Robitussin as needed for cough. Continue O2 via nasal cannula as needed. Patient counseled on tobacco and cocaine cessation 3. Recurrent pulmonary emboli. Continue Xarelto. S/P IVC filter placement. 4. History of lung cancer. S/P chemo and lobectomy. Hem/onc consulted, follow-up recommendations. 5. Tobacco abuse. Patient counseled at length on cessation. 6. Cocaine abuse .Urine drug screen positive for cocaine. Patient counseled at length on cocaine cessation 7. Schizoaffective disorder. Continue home Depakote and Risperdal. 8. GI and DVT prophylaxis. Protonix and Xarelto. Case was discussed in detail with the patient regarding current diagnosis and treatment plan. All questions answered.
--- NOTE | 2018-02-06 20:20 | CP.PCM.PN ---
<Michelle Gallagher - Last Filed: 02/06/18 20:30> Subjective - Date & Time of Evaluation Date of Evaluation: 02/06/18 Time of Evaluation: 11:00 - Subjective Subjective: INTERNAL MEDICINE PROGRESS NOTE FOR DR. KITTY GoldenO. PGY-1 Patient seen and examined at bedside this am. Pt reports improvement in swelling and erythema in R arm. She reports respiratory symptoms have improved with duoneb treatments. She denies fevers, chills, headache, dizziness, chest pain, palpitations, shortness of breath, nausea, vomiting, constipation, diarrhea, dysuria. Objective - Vital Signs/Intake and Output Vital Signs (last 24 hours): Temp Pulse Resp BP Pulse Ox 97.6 F 106 H 20 138/76 96 02/06/18 14:00 02/06/18 14:00 02/06/18 14:00 02/06/18 14:00 02/06/18 14:00 Intake and Output: 02/06/18 02/07/18 18:59 06:59 Intake Total 2360 Balance 2360 - Medications Medications: Current Medications Albuterol/Ipratropium (Duoneb 3 Mg/0.5 Mg (3 Ml) Ud) 3 ml IH Q2H PRN PRN Reason: Shortness of Breath Last Admin: 02/06/18 14:07 Dose: 3 ml Divalproex Sodium (Depakote Dr (*Bid*)) 250 mg PO BID [facility]; Protocol Last Admin: 02/06/18 18:39 Dose: 250 mg Guaifenesin (Robitussin) 200 mg PO Q4H PRN PRN Reason: Cough and congestion Last Admin: 02/06/18 04:54 Dose: 200 mg Vancomycin HCl 1.5 gm/ Sodium (Chloride) 500 mls @ 167 mls/hr IVPB Q12H [facility]; Protocol Last Admin: 02/06/18 10:57 Dose: 167 mls/hr Methylprednisolone (Solu-Medrol) 40 mg IVP Q8 [facility] Last Admin: 02/06/18 14:10 Dose: 40 mg Nicotine (Nicoderm Cq) 1 patch TD DAILY [facility] Last Admin: 02/06/18 10:58 Dose: 1 patch Oxycodone HCl (Oxycodone Immediate Release Tab) 30 mg PO Q6H PRN PRN Reason: Pain, severe (8-10) Last Admin: 02/06/18 20:09 Dose: 30 mg Pantoprazole Sodium (Protonix Ec Tab) 40 mg PO ACB [facility] Last Admin: 02/06/18 07:55 Dose: 40 mg Risperidone (Risperdal Tab) 0.5 mg PO BID [facility]; Protocol Last Admin: 02/06/18 18:40 Dose: 0.5 mg Rivaroxaban (Xarelto) 20 mg PO DAILY [facility]; Protocol Last Admin: 02/06/18 10:59 Dose: 20 mg - Labs Labs: 02/06/18 08:10 02/06/18 08:10 PT 14.3 SECONDS (9.4-12.5) H 02/06/18 08:10 INR 1.24 02/06/18 08:10 APTT 31.8 Seconds (25.1-36.5) 02/04/18 01:55 - Constitutional Appears: Well, Non-toxic, No Acute Distress - Head Exam Head Exam: NORMAL INSPECTION, NORMOCEPHALIC - Eye Exam Eye Exam: EOMI, Normal appearance - ENT Exam ENT Exam: Mucous Membranes Moist, Normal Exam - Neck Exam Neck Exam: Normal Inspection. absent: Meningismus - Respiratory Exam Respiratory Exam: Wheezes (b/l), NORMAL BREATHING PATTERN - Cardiovascular Exam Cardiovascular Exam: Tachycardia, +S1, +S2 - GI/Abdominal Exam GI & Abdominal Exam: Soft. absent: Firm, Tenderness - Extremities Exam Extremities Exam: Normal Inspection. absent: Calf Tenderness - Back Exam Back Exam: NORMAL INSPECTION - Neurological Exam Neurological Exam: Alert, Awake, Oriented x3 - Psychiatric Exam Psychiatric exam: Normal Affect, Normal Mood - Skin Skin Exam: Dry, Intact, Warm Assessment and Plan - Assessment and Plan (Free Text) Assessment: 52 y/o female with PMHx of COPD, history of four pulmonary emboli over the past six months (currently on xarelto, s/p right IVC filter placement ~3 months ago), lung cancer (chemotherapy in 2014, after her right upper lobectomy, finished radiation therapy last year and is in remission for the past year), osteoarthritis, schizoaffective disorder admitted for R arm pain/swelling/erythema. 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 Pt started on IV vancomycin and continued on home xarelto Plan: Right upper extremity swelling/erythema Improving with current treatment Likely secondary to brachial vein DVT vs cellulitis R Upper Extremity U/S: R axillary, R subclavian, R axillary vein are patent. R Breast ultrasound: No signs of abscess or malignancy Continue home xarelto for anticoagulation Continue day 2 vancomycin for R arm cellulitis Appreciate ID recs. Consider po abx upon discharge Verbal conversation with Dr. Beck. Reports pt cancer-free, no longer being treated. He does not provide pain medications to pt. COPD Start duoneb q2h prn Start solumedrol PRN Start guaifenasin prn cough Schizoaffective disorder Continue home depakote Continue home risperidone Cocaine use Advise cessation DVT/GI ppx: Xarelto, SCD/Protonix Case seen, examined and discussed with attending physician, Dr. Tafoya <Callie Tafoya R - Last Filed: 02/09/18 08:14> Objective - Vital Signs/Intake and Output Vital Signs (last 24 hours): Temp Pulse Resp BP Pulse Ox 97.3 F L 83 18 123/73 96 02/08/18 06:00 02/08/18 06:00 02/08/18 06:00 02/08/18 06:00 02/08/18 06:00 - Labs Labs: 02/08/18 07:45 02/08/18 07:45 PT 14.2 SECONDS (9.4-12.5) H 02/08/18 07:45 INR 1.23 02/08/18 07:45 APTT 31.8 Seconds (25.1-36.5) 02/04/18 01:55 Attending/Attestation - Attestation I have personally seen and examined this patient.: Yes I have fully participated in the care of the patient.: Yes I have reviewed all pertinent clinical information, including history, physical exam and plan: Yes Notes (Text): Patient seen and examined by me at 1:15PM with resident 02/06/18. Case including HPI, physical exam, and assessment and plan discussed with resident. Agree with above with following additions/corrections. Patient is a 52-year-old female past medical history significant for COPD, pulmonary embolism status post IVC filter maintained on Xarelto, lung cancer s tatus post chemotherapy and lobectomy, osteoarthritis, schizoaffective disorder, and cocaine and tobacco abuse that presented to the emergency room with right arm pain and swellling, and right breast pain and swelling. Patient states she is feeling better. Right upper extremity and right breast swe lling improved. Shortness of breath and wheezing also improved. However, patient states she gets short of breath walking to the bathroom. No nausea or vomiting. No chest pain or palpitations. No headaches or dizziness. No dysuria. No diarrhea or constipation. Physical exam: General: Awake and alert sitting up in bed in no acute distress HEENT: Normocephalic, atraumatic. Extraocular muscles intact. Pupils equal reactive. No scleral icterus. Oropharynx is pink and moist. No pharyngeal erythema or exudate appreciated. Neck is supple. Cardiovascular: Normal rhythm. Normal S1, S2. No murmurs, rubs, or gallops appreciated Pulmonary: Normal respiratory effort. Decreased breath sounds throughout. Positive wheezing throughout. No rhonchi or rales appreciated. Gastrointestinal: Soft, nondistended. Nontender. Positive bowel sounds all 4 quadrants, no guarding. Musculoskeletal: Moves all extremities, no calf tenderness. RUE and right breast with edema, tender to palpation. Central nervous system: AAO x 3. CN 2-12 grossly intact. Dermatologic: Skin warm and dry. Assessment and plan: Patient is a 52-year-old female past medical history significant for COPD, pulmonary embolism status post IVC filter maintained on Xarelto, lung cancer status post chemotherapy and lobectomy, osteoarthritis, schizoaffective disorder, and cocaine and tobacco abuse that presented to the emergency room with right arm pain and swellling, and right breast pain and swelling. 1. Right upper extremity and right breast edema and cellulitis. Improving. Continue vancomycin. Continue Xarelto. Keep arm elevated. Right upper extremity venous doppler per radiologist showed chronic occlusive thrombus in the right brachial vein above the elbow; right internal jugular vein, right subclavian vein, right axillary vein are patent. Right breast ultrasound per radiologist shows no sonographic evidence of malignancy, no abscess identified, BIRADS 2 benign finding. ID following, recommendations appreciated. Hematology/oncology following, recommendations appreciated. 2. COPD exacerbation. Continue nebulizer treatments. Continue O2 via nasal cannula as needed. Continue Solu-Medrol. Continue Robitussin as needed for cough. Patient counseled on tobacco and cocaine cessation 3. Recurrent pulmonary emboli. Continue Xarelto. S/P IVC filter placement. 4. History of lung cancer. S/P chemo and lobectomy. Hem/onc following, recommendations appreciated. 5. Tobacco abuse. Patient counseled at length on cessation. 6. Cocaine abuse. Urine drug screen positive for cocaine. Patient counseled at length on cocaine cessation 7. Schizoaffective disorder. Continue home Depakote and Risperdal. 8. GI and DVT prophylaxis. Protonix and Xarelto. Case was discussed in detail with the patient regarding current diagnosis and treatment plan. All questions answered.
[2018-02-07] MEDS: Albuterol-Ipratrop 3 mg / 0.5 (3 ml) UD IH PRN ×4 (00:16→19:40)
[2018-02-07] MEDS: oxyCODONE 30 mg Immediate Release Tab PO PRN ×4 (01:51→23:15)
[2018-02-07] MEDS ORDERED: MethylPREDNISolone 40 mg Vial IVP STA (02:20)
[2018-02-07] MEDS: MethylPREDNISolone 40 mg Vial IVP SCH ×3 (06:36→22:26)
[2018-02-07 07:18] LABS: GRAN # 8.67 (1.4-6.5); GRAN % 87.2 % (50.0-68.0); LYMPH # 0.7 (1.2-3.4); LYMPH % 7.1 % (22.0-35.0); MEAN CELL VOLUME 86.9 fl (80.0-105.0); MEAN CORPUSCULAR HEMOGLOBIN 27.9 pg (25.0-35.0); MEAN CORPUSCULAR HGB CONC 32.1 g/dl (31.0-37.0); MEAN PLATELET VOLUME 8.5 fl (7.0-11.0); MONO # 0.6 (0.1-0.6); MONO % 5.7 % (1.0-6.0); RBC 3.59 10^6/uL (3.5-6.1); RED CELL DISTRIBUTION WIDTH 15.7 % (11.5-14.5)
[2018-02-07] MEDS: Pantoprazole 40 mg EC Tab PO SCH (07:33)
[2018-02-07 07:37] LABS: ALB/GLOB RATIO 1.2 (1.1-1.8); ALBUMIN 3.6 g/dL (3.0-4.8); ALT/SGPT 60 U/L (7-56); AST/SGOT 39 U/L (14-36); BLOOD UREA NITROGEN 10 mg/dL (7-21); CALCIUM 8.9 mg/dL (8.4-10.5); GFR NON-AFRICAN AMERICAN > 60
--- NOTE | 2018-02-07 09:30 | RAD ---
Date of service: 02/07/2018 HISTORY: SOB, decrease BS COMPARISON: 02/04/2018 FINDINGS: LUNGS: Chronic linear scarring at the right lung base. PLEURA: No significant pleural effusion identified, no pneumothorax apparent. CARDIOVASCULAR: Normal. OSSEOUS STRUCTURES: No significant abnormalities. VISUALIZED UPPER ABDOMEN: Normal. OTHER FINDINGS: Left-sided Port-A-Cath IMPRESSION: No active disease.
[2018-02-07] MEDS: Divalproex 250 mg DR (BID formulation) PO SCH ×2 (10:43→17:46)
[2018-02-07] MEDS: Vancomycin 1.5 GM in Sodium Chloride 0.9% 500 ML IVPB SCH ×2 (10:47→22:26)
[2018-02-07] MEDS ORDERED: oxyCODONE 30 mg Immediate Release Tab PO STA (11:59)
[2018-02-07 13:01] LABS: INR 1.33; PROTHROMBIN TIME 15.4 SECONDS (9.4-12.5)
[2018-02-07] MEDS ORDERED: Iohexol 350 MG/100 ML VIAL ONE (17:02)
--- NOTE | 2018-02-07 17:08 | CP.PCM.PN ---
Subjective - Date & Time of Evaluation Date of Evaluation: 02/07/18 Time of Evaluation: 12:00 - Subjective Subjective: Less swelling and pain of the right arm but still with swelling of the right breast (although a little less). Objective - Vital Signs/Intake and Output Vital Signs (last 24 hours): Temp Pulse Resp BP Pulse Ox 97.8 F 83 20 153/90 H 94 L 02/07/18 06:00 02/07/18 06:00 02/07/18 06:00 02/07/18 06:00 02/07/18 06:00 - Medications Medications: Current Medications Albuterol/Ipratropium (Duoneb 3 Mg/0.5 Mg (3 Ml) Ud) 3 ml IH Q2H PRN PRN Reason: Shortness of Breath Last Admin: 02/07/18 07:02 Dose: 3 ml Divalproex Sodium (Depakote Dr (*Bid*)) 250 mg PO BID [facility]; Protocol Last Admin: 02/06/18 18:39 Dose: 250 mg Guaifenesin (Robitussin) 200 mg PO Q4H PRN PRN Reason: Cough and congestion Last Admin: 02/06/18 22:01 Dose: 200 mg Vancomycin HCl 1.5 gm/ Sodium (Chloride) 500 mls @ 167 mls/hr IVPB Q12H [facility]; Protocol Last Admin: 02/06/18 22:01 Dose: 167 mls/hr Methylprednisolone (Solu-Medrol) 40 mg IVP Q8 [facility] Last Admin: 02/07/18 06:36 Dose: 40 mg Nicotine (Nicoderm Cq) 1 patch TD DAILY [facility] Last Admin: 02/06/18 10:58 Dose: 1 patch Oxycodone HCl (Oxycodone Immediate Release Tab) 30 mg PO Q6H PRN PRN Reason: Pain, severe (8-10) Last Admin: 02/07/18 07:33 Dose: 30 mg Pantoprazole Sodium (Protonix Ec Tab) 40 mg PO ACB [facility] Last Admin: 02/07/18 07:33 Dose: 40 mg Risperidone (Risperdal Tab) 0.5 mg PO BID [facility]; Protocol Last Admin: 02/06/18 18:40 Dose: 0.5 mg Rivaroxaban (Xarelto) 20 mg PO DAILY [facility]; Protocol Last Admin: 02/06/18 10:59 Dose: 20 mg - Labs Labs: 02/07/18 06:40 02/07/18 06:40 PT 14.3 SECONDS (9.4-12.5) H 02/06/18 08:10 INR 1.24 02/06/18 08:10 APTT 31.8 Seconds (25.1-36.5) 02/04/18 01:55 - Constitutional Appears: No Acute Distress, Chronically Ill - Head Exam Head Exam: NORMAL INSPECTION - Respiratory Exam Respiratory Exam: Decreased Breath Sounds - Cardiovascular Exam Cardiovascular Exam: +S1, +S2 - GI/Abdominal Exam GI & Abdominal Exam: Soft. absent: Tenderness - Extremities Exam Additional comments: right arm with decreased swelling, right breast still with swelling Assessment and Plan - Assessment and Plan (Free Text) Plan: Assessment consider right arm DVT R/O lymphangitis associated with the right breast, with possible cellulitis, slowly improving history of Corynebacterium in blood cx bottles (from 01/03/2018), probably contamination S/P port placement on the left anterior chest wall Probable acute exacerbation of COPD, R/O pneumonia obesity with BM 34 pulmonary emboli S/P IVC filter placement 2 months ago and currently on anticoagulation lung cancer S/P right upper lobectomy and S/P chemotherapy Plan continue IV Vancomycin day 4 ; blood cx are negative, ultrasound of the right arm shows old clot; also reviewed imaging of the the right breast which showed subcutaneous edema - will get CT chest to re-evaluate the breasts will continue to monitor clinically
--- NOTE | 2018-02-07 18:48 | CT ---
Date of service: 02/07/2018 PROCEDURE: CT Chest with contrast HISTORY: R/o R breast abscess/ RUE abscess COMPARISON: Right breast ultrasound from 02/05/[address] chest with contrast from 01/10/2018 TECHNIQUE: Contiguous axial images were obtained through the chest with intravenous contrast enhancement. Sagittal and coronal reconstructions were performed. IV contrast: 96 mL Omnipaque 350 Radiation dose (DLP): 876.89 mGy-cm. This CT exam was performed using one or more of the following dose reduction techniques: Automated exposure control, adjustment of the mA and/or kV according to patient size, and/or use of iterative reconstruction technique. FINDINGS: LUNGS: There are fibrotic changes and scarring in the right upper lobe with superior retraction of the right hilum and postsurgical changes in the suprahilar region in keeping with right upper lobectomy and post treatment change. There is centrilobular emphysema in the lungs with upper lobe predominance. There is a linear scar in the right lower lobe. MEDIASTINUM: The aorta is not dilated. Normal sized heart. Main pulmonary artery unremarkable. No vascular congestion. No mediastinal lymphadenopathy. PLEURA: Small right pleural effusion. No left pleural fluid. No pneumothorax. BONES: No fracture. No destructive lesion. Within normal limits for the patient's age. UPPER ABDOMEN: Grossly unremarkable. OTHER FINDINGS: There is extensive subcutaneous edema in imaged portions of the breasts. There are also multiple prominent bilateral axillary lymph nodes. IMPRESSION: Extensive subcutaneous edema in imaged portions of the breasts. No definite evidence for drainable fluid collection. Multiple prominent bilateral axillary lymph nodes are likely reactive in etiology. Status post right upper lobectomy, stable posttreatment changes. Diffuse centrilobular emphysema in the lungs with upper lobe predominance.
--- NOTE | 2018-02-07 20:47 | CP.PCM.PN ---
<Michelle Gallagher - Last Filed: 02/07/18 20:48> Subjective - Date & Time of Evaluation Date of Evaluation: 02/07/18 Time of Evaluation: 11:15 - Subjective Subjective: INTERNAL MEDICINE PROGRESS NOTE FOR DR. KITTY Gallagher D.O. PGY-1 Pt seen and examined at bedside this am. Pt reports improvement in R arm swelling and pain. She reports continued swelling in R breast. She is feeling better, and asking to go home. Denies fevers, chills, headache, dizziness, chest pain, palpitations, shortness of breath, nausea, vomiting, constipation, diarrhea, dysuria. Objective - Vital Signs/Intake and Output Vital Signs (last 24 hours): Temp Pulse Resp BP Pulse Ox 98 F 82 19 144/63 96 02/07/18 14:00 02/07/18 14:00 02/07/18 14:00 02/07/18 14:00 02/07/18 14:00 Intake and Output: 02/07/18 02/08/18 18:59 06:59 Intake Total 360 720 Balance 360 720 - Medications Medications: Current Medications Albuterol/Ipratropium (Duoneb 3 Mg/0.5 Mg (3 Ml) Ud) 3 ml IH Q2H PRN PRN Reason: Shortness of Breath Last Admin: 02/07/18 19:40 Dose: 3 ml Divalproex Sodium (Depakote Dr (*Bid*)) 250 mg PO BID [facility]; Protocol Last Admin: 02/07/18 17:46 Dose: 250 mg Guaifenesin (Robitussin) 200 mg PO Q4H PRN PRN Reason: Cough and congestion Last Admin: 02/06/18 22:01 Dose: 200 mg Vancomycin HCl 1.5 gm/ Sodium (Chloride) 500 mls @ 167 mls/hr IVPB Q12H [facility]; Protocol Last Admin: 02/07/18 10:47 Dose: 167 mls/hr Methylprednisolone (Solu-Medrol) 40 mg IVP Q8 [facility] Last Admin: 02/07/18 14:08 Dose: 40 mg Nicotine (Nicoderm Cq) 1 patch TD DAILY [facility] Last Admin: 02/07/18 10:43 Dose: 1 patch Oxycodone HCl (Oxycodone Immediate Release Tab) 30 mg PO Q6H PRN PRN Reason: Pain, severe (8-10) Last Admin: 02/07/18 17:50 Dose: 30 mg Pantoprazole Sodium (Protonix Ec Tab) 40 mg PO ACB [facility] Last Admin: 02/07/18 07:33 Dose: 40 mg Risperidone (Risperdal Tab) 0.5 mg PO BID [facility]; Protocol Last Admin: 02/07/18 17:50 Dose: 0.5 mg Rivaroxaban (Xarelto) 20 mg PO DAILY [facility]; Protocol Last Admin: 02/07/18 10:44 Dose: 20 mg - Labs Labs: 02/07/18 06:40 02/07/18 06:40 PT 15.4 SECONDS (9.4-12.5) H 02/07/18 12:30 INR 1.33 02/07/18 12:30 APTT 31.8 Seconds (25.1-36.5) 02/04/18 01:55 - Constitutional Appears: Well, Non-toxic, No Acute Distress - Head Exam Head Exam: ATRAUMATIC, NORMAL INSPECTION - Eye Exam Eye Exam: EOMI, Normal appearance - ENT Exam ENT Exam: Mucous Membranes Moist, Normal Exam - Neck Exam Neck Exam: Full ROM, Normal Inspection - Respiratory Exam Respiratory Exam: Clear to Ausculation Bilateral, NORMAL BREATHING PATTERN - Cardiovascular Exam Cardiovascular Exam: REGULAR RHYTHM, +S1, +S2 - GI/Abdominal Exam GI & Abdominal Exam: Normal Bowel Sounds - Extremities Exam Extremities Exam: Normal Inspection. absent: Calf Tenderness Additional comments: Edema/erythema noted in RUE. Edema noted in R breast. - Back Exam Back Exam: NORMAL INSPECTION - Neurological Exam Neurological Exam: Alert, Awake, Oriented x3 - Psychiatric Exam Psychiatric exam: Normal Affect, Normal Mood - Skin Skin Exam: Dry, Intact, Warm Assessment and Plan - Assessment and Plan (Free Text) Assessment: 52 y/o female with PMHx of COPD, history of four pulmonary emboli over the past six months (currently on xarelto, s/p right IVC filter placement ~3 months ago), lung cancer (chemotherapy in 2014, after her right upper lobectomy, finished radiation therapy last year and is in remission for the past year), osteoarthritis, schizoaffective disorder admitted for R arm pain/swelling/erythema. 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 Pt started on IV vancomycin and continued on home xarelto Plan: Right upper extremity swelling/erythema Improving with current antibiotic treatment Likely secondary to brachial vein DVT vs cellulitis vs. lymphangitis R Upper Extremity U/S: R axillary, R subclavian, R axillary vein are patent. R Breast ultrasound: No signs of abscess or malignancy CT Chest 01/08/18: "Extensive subcutaneous edema in imaged portions of the breasts. No definite evidence of drainable fluid collection. Multiple prominent bilateral axillary lymph nodes are likely reactive in etiology." Continue home xarelto for anticoagulation Continue day 4 vancomycin for R arm cellulitis Appreciate ID recs. Consider po abx upon discharge Verbal conversation with Dr. Beck. Reports pt cancer-free, no longer being treated. He does not provide pain medications to pt. COPD Continue duoneb q2h prn Continue solumedrol PRN Continue guaifenasin prn cough Schizoaffective disorder Continue home depakote Continue home risperidone Cocaine use Advise cessation DVT/GI ppx: Xarelto, SCD/Protonix Case seen, examined and discussed with attending physician, Dr. Tafoya <Callie Tafoya R - Last Filed: 02/09/18 08:25> Objective - Vital Signs/Intake and Output Vital Signs (last 24 hours): Temp Pulse Resp BP Pulse Ox 97.3 F L 83 18 123/73 96 02/08/18 06:00 02/08/18 06:00 02/08/18 06:00 02/08/18 06:00 02/08/18 06:00 - Labs Labs: 02/08/18 07:45 02/08/18 07:45 PT 14.2 SECONDS (9.4-12.5) H 02/08/18 07:45 INR 1.23 02/08/18 07:45 APTT 31.8 Seconds (25.1-36.5) 02/04/18 01:55 Attending/Attestation - Attestation I have personally seen and examined this patient.: Yes I have fully participated in the care of the patient.: Yes I have reviewed all pertinent clinical information, including history, physical exam and plan: Yes Notes (Text): Patient seen and examined by me at 11:20 AM with resident 02/07/18. Case including HPI, physical exam, and assessment and plan discussed with resident. Agree with above with following additions/corrections. Patient is a 52-year-old female past medical history significant for COPD, pulmonary embolism status post IVC filter maintained on Xarelto, lung cancer status post chemotherapy and lobectomy, osteoarthritis, schizoaffective disorder, and cocaine and tobacco abuse that presented to the emergency room with right arm pain and swellling, and right breast pain and swelling. Patient states she feels much better. Right upper extremity and right breast swelling much improved. States she is still having pain in her right breast but improved with pain medications. No longer feeling short of breath. No nausea or vomiting. No chest pain or palpitations. No headaches or dizziness. No dysuria. No diarrhea or constipation. Physical exam: General: Awake and alert sitting up in bed in no acute distress HEENT: Normocephalic, atraumatic. Extraocular muscles intact. Pupils equal reactive. No scleral icterus. Oropharynx is pink and moist. No pharyngeal erythema or exudate appreciated. Neck is supple. Cardiovascular: Normal rhythm. Normal S1, S2. No murmurs, rubs, or gallops appreciated Pulmonary: Normal respiratory effort. Improved breath sounds. No rhonchi, rales, or wheezing appreciated Gastrointestinal: Soft, nondistended. Nontender. Positive bowel sounds all 4 quadrants, no guarding. Musculoskeletal: Moves all extremities, no calf tenderness. RUE and right breast with edema, tender to palpation. Central nervous system: AAO x 3. CN 2-12 grossly intact. Dermatologic: Skin warm and dry. Assessment and plan: Patient is a 52-year-old female past medical history significant for COPD, pulmonary embolism status post IVC filter maintained on Xarelto, lung cancer status post chemotherapy and lobectomy, osteoarthritis, schizoaffective disorder, and cocaine and tobacco abuse that presented to the emergency room with right arm pain and swellling, and right breast pain and swelling. 1. Right upper extremity and right breast edema and cellulitis. Improving. Continue vancomycin. Continue Xarelto. Keep arm elevated. Pending chest CT to further evaluate right breast per ID. Right upper extremity venous doppler per radiologist showed chronic occlusive thrombus in the right brachial vein above the elbow; right internal jugular vein, right subclavian vein, right axillary vein are patent. Right breast ultrasound per radiologist shows no sonographic evidence of malignancy, no abscess identified, BIRADS 2 benign finding. ID following, recommendations appreciated. Hematology/oncology following, recommendations appreciated. 2. COPD exacerbation. Improving. Continue nebulizer treatments. Continue O2 via nasal cannula as needed. Continue Solu-Medrol. Continue Robitussin as needed for cough. Patient counseled on tobacco and cocaine cessation 3. Recurrent pulmonary emboli. Continue Xarelto. S/P IVC filter placement. 4. History of lung cancer. S/P chemo and lobectomy. Hem/onc following, recommendations appreciated. 5. Tobacco abuse. Patient counseled at length on cessation. 6. Cocaine abuse. Urine drug screen positive for cocaine. Patient counseled at length on cocaine cessation 7. Schizoaffective disorder. Continue home Depakote and Risperdal. 8. GI and DVT prophylaxis. Protonix and Xarelto. Case was discussed in detail with the patient regarding current diagnosis and treatment plan. All questions answered.
[2018-02-08] MEDS: Albuterol-Ipratrop 3 mg / 0.5 (3 ml) UD IH SCH ×2 (02:30→08:38)
--- NOTE | 2018-02-08 05:00 | CP.PCM.PN ---
Subjective - Date & Time of Evaluation Date of Evaluation: 02/08/18 - Subjective Subjective: INTERNAL MEDICINE PROGRESS NOTE FOR DR. KITTY Gallagher D.O. PGY-1 Objective - Vital Signs/Intake and Output Vital Signs (last 24 hours): Temp Pulse Resp BP Pulse Ox 98 F 88 20 158/82 H 98 02/07/18 22:00 02/07/18 22:00 02/07/18 22:00 02/07/18 22:00 02/07/18 22:00 Intake and Output: 02/07/18 02/08/18 18:59 06:59 Intake Total 360 720 Balance 360 720 - Medications Medications: Current Medications Albuterol/Ipratropium (Duoneb 3 Mg/0.5 Mg (3 Ml) Ud) 3 ml IH Q2H PRN PRN Reason: Shortness of Breath Last Admin: 02/07/18 19:40 Dose: 3 ml Albuterol/Ipratropium (Duoneb 3 Mg/0.5 Mg (3 Ml) Ud) 3 ml IH [id number] SOPHIA Last Admin: 02/08/18 02:30 Dose: 3 ml Divalproex Sodium (Depakote Dr (*Bid*)) 250 mg PO BID [facility]; Protocol Last Admin: 02/07/18 17:46 Dose: 250 mg Guaifenesin (Robitussin) 200 mg PO Q4H PRN PRN Reason: Cough and congestion Last Admin: 02/06/18 22:01 Dose: 200 mg Vancomycin HCl 1.5 gm/ Sodium (Chloride) 500 mls @ 167 mls/hr IVPB Q12H [facility]; Protocol Last Admin: 02/07/18 22:26 Dose: 167 mls/hr Methylprednisolone (Solu-Medrol) 40 mg IVP Q8 SOPHIA Last Admin: 02/07/18 22:26 Dose: 40 mg Nicotine (Nicoderm Cq) 1 patch TD DAILY SOPHIA Last Admin: 02/07/18 10:43 Dose: 1 patch Oxycodone HCl (Oxycodone Immediate Release Tab) 30 mg PO Q6H PRN PRN Reason: Pain, severe (8-10) Last Admin: 02/07/18 23:15 Dose: 30 mg Pantoprazole Sodium (Protonix Ec Tab) 40 mg PO ACB SOPHIA Last Admin: 02/07/18 07:33 Dose: 40 mg Risperidone (Risperdal Tab) 0.5 mg PO BID [facility]; Protocol Last Admin: 02/07/18 17:50 Dose: 0.5 mg Rivaroxaban (Xarelto) 20 mg PO DAILY [facility]; Protocol Last Admin: 02/07/18 10:44 Dose: 20 mg - Labs Labs: 02/07/18 06:40 02/07/18 06:40 PT 15.4 SECONDS (9.4-12.5) H 02/07/18 12:30 INR 1.33 02/07/18 12:30 APTT 31.8 Seconds (25.1-36.5) 02/04/18 01:55
[2018-02-08] MEDS: MethylPREDNISolone 40 mg Vial IVP SCH (05:41)
[2018-02-08 07:24] VITALS: BP 123/73; PULSE 83; RESP 18; TEMP 97.3; O2SAT 96
[2018-02-08 08:00] LABS: BASO # 0.01 K/mm3 (0.0-2.0); BASO % 0.1 % (0.0-3.0); GRAN # 8.7 (1.4-6.5); GRAN % 85.1 % (50.0-68.0); HEMOGLOBIN 10.9 g/dL (12.0-16.0); LYMPH # 0.8 (1.2-3.4); LYMPH % 7.8 % (22.0-35.0); MEAN CELL VOLUME 86.9 fl (80.0-105.0); MEAN CORPUSCULAR HGB CONC 32.2 g/dl (31.0-37.0); MEAN PLATELET VOLUME 8.4 fl (7.0-11.0); MONO # 0.7 (0.1-0.6); RBC 3.89 10^6/uL (3.5-6.1); RED CELL DISTRIBUTION WIDTH 15.6 % (11.5-14.5); WHITE BLOOD COUNT 10.2 10^3/ul (4.5-11.0)
[2018-02-08 08:08] LABS: INR 1.23; PROTHROMBIN TIME 14.2 SECONDS (9.4-12.5)
[2018-02-08 08:15] LABS: ALB/GLOB RATIO 1.3 (1.1-1.8); ALBUMIN 3.8 g/dL (3.0-4.8); ALT/SGPT 55 U/L (7-56); AST/SGOT 27 U/L (14-36); BLOOD UREA NITROGEN 10 mg/dL (7-21); CALCIUM 9.3 mg/dL (8.4-10.5); GFR NON-AFRICAN AMERICAN > 60
[2018-02-08] MEDS: Pantoprazole 40 mg EC Tab PO SCH (08:28)
[2018-02-08] MEDS: oxyCODONE 30 mg Immediate Release Tab PO PRN (08:28)
[2018-02-08] MEDS: Divalproex 250 mg DR (BID formulation) PO SCH (09:48)
[2018-02-08] MEDS ORDERED: Oxycodone/Acetaminophen 5/325 mg Tab PO PRN (12:50)
[2018-02-08] MEDS: Vancomycin 1.5 GM in Sodium Chloride 0.9% 500 ML IVPB SCH (13:59)
--- NOTE | 2018-02-08 14:54 | CP.PCM.PN ---
Subjective - Date & Time of Evaluation Date of Evaluation: 02/08/18 Time of Evaluation: 11:55 - Subjective Subjective: Less swelling of the right arm, no fevers, still with swelling of the right breast but less heavy, no pain. Objective - Vital Signs/Intake and Output Vital Signs (last 24 hours): Temp Pulse Resp BP Pulse Ox 97.3 F L 83 18 123/73 96 02/08/18 06:00 02/08/18 06:00 02/08/18 06:00 02/08/18 06:00 02/08/18 06:00 Intake and Output: 02/08/18 02/08/18 06:59 18:59 Intake Total 720 Balance 720 - Medications Medications: Current Medications Albuterol/Ipratropium (Duoneb 3 Mg/0.5 Mg (3 Ml) Ud) 3 ml IH Q2H PRN PRN Reason: Shortness of Breath Last Admin: 02/07/18 19:40 Dose: 3 ml Albuterol/Ipratropium (Duoneb 3 Mg/0.5 Mg (3 Ml) Ud) 3 ml IH [id number] SOPHIA Last Admin: 02/08/18 02:30 Dose: 3 ml Divalproex Sodium (Depakote Dr (*Bid*)) 250 mg PO BID [facility]; Protocol Last Admin: 02/07/18 17:46 Dose: 250 mg Guaifenesin (Robitussin) 200 mg PO Q4H PRN PRN Reason: Cough and congestion Last Admin: 02/06/18 22:01 Dose: 200 mg Vancomycin HCl 1.5 gm/ Sodium (Chloride) 500 mls @ 167 mls/hr IVPB Q12H [facility]; Protocol Last Admin: 02/07/18 22:26 Dose: 167 mls/hr Methylprednisolone (Solu-Medrol) 40 mg IVP Q8 SOP[facility]IA Last Admin: 02/08/18 05:41 Dose: 40 mg Nicotine (Nicoderm Cq) 1 patch TD DAILY [facility] Last Admin: 02/07/18 10:43 Dose: 1 patch Oxycodone HCl (Oxycodone Immediate Release Tab) 30 mg PO Q6H PRN PRN Reason: Pain, severe (8-10) Last Admin: 02/07/18 23:15 Dose: 30 mg Pantoprazole Sodium (Protonix Ec Tab) 40 mg PO ACB SOPHIA Last Admin: 02/07/18 07:33 Dose: 40 mg Risperidone (Risperdal Tab) 0.5 mg PO BID [facility]; Protocol Last Admin: 02/07/18 17:50 Dose: 0.5 mg Rivaroxaban (Xarelto) 20 mg PO DAILY [facility]; Protocol Last Admin: 02/07/18 10:44 Dose: 20 mg - Labs Labs: 02/07/18 06:40 02/07/18 06:40 PT 15.4 SECONDS (9.4-12.5) H 02/07/18 12:30 INR 1.33 02/07/18 12:30 APTT 31.8 Seconds (25.1-36.5) 02/04/18 01:55 - Constitutional Appears: No Acute Distress, Chronically Ill - Head Exam Head Exam: NORMAL INSPECTION - Neck Exam Neck Exam: absent: Meningismus - Respiratory Exam Respiratory Exam: Decreased Breath Sounds - Cardiovascular Exam Cardiovascular Exam: +S1, +S2 - GI/Abdominal Exam GI & Abdominal Exam: Soft. absent: Tenderness - Extremities Exam Additional comments: right arm swelling decreased Assessment and Plan - Assessment and Plan (Free Text) Plan: Assessment consider right arm DVT R/O lymphangitis associated with the right breast, with possible cellulitis, clinically improving history of Corynebacterium in blood cx bottles (from 01/03/2018), probably contamination S/P port placement on the left anterior chest wall Probable acute exacerbation of COPD, R/O pneumonia obesity with BM 34 pulmonary emboli S/P IVC filter placement 2 months ago and currently on anticoagulation lung cancer S/P right upper lobectomy and S/P chemotherapy Plan continue IV Vancomycin day 5 ; blood cx are negative, ultrasound of the right arm shows old clot; also reviewed imaging of the the right breast which showed subcutaneous edema - reviewed CT chest - will need to follow up with Dr. Beck as an outpatient to follow up the lymph nodes - patient understands - can be switched to PO antibiotics to complete the 7-10 day course (Day 5 today) when ready to be discharged
--- NOTE | 2018-02-08 16:35 | CP.PCM.DIS ---
Provider - Provider Date of Admission: 02/06/18 15:24 Attending physician: Dany Ambrosio MD Consults: Heme-onc: Dr. Beck ID: Dr. Mejia Time Spent in preparation of Discharge (in minutes): 45 Hospital Course - Lab Results Lab Results: Micro Results 02/04/18 08:50 Blood Blood Culture - Preliminary NO GROWTH AFTER 4 DAYS 02/04/18 08:30 Blood Blood Culture - Preliminary NO GROWTH AFTER 4 DAYS Most Recent Lab Values WBC 10.2 10^3/ul (4.5-11.0) 02/08/18 07:45 RBC 3.89 10^6/uL (3.5-6.1) 02/08/18 07:45 Hgb 10.9 g/dL (12.0-16.0) L 02/08/18 07:45 Hct 33.8 % (36.0-48.0) L 02/08/18 07:45 MCV 86.9 fl (80.0-105.0) 02/08/18 07:45 MCH 28.0 pg (25.0-35.0) 02/08/18 07:45 MCHC 32.2 g/dl (31.0-37.0) 02/08/18 07:45 RDW 15.6 % (11.5-14.5) H 02/08/18 07:45 Plt Count 350 10^3/uL (120.0-450.0) 02/08/18 07:45 MPV 8.4 fl (7.0-11.0) 02/08/18 07:45 Gran % 85.1 % (50.0-68.0) H 02/08/18 07:45 Lymph % (Auto) 7.8 % (22.0-35.0) L 02/08/18 07:45 [place] % (Auto) 7.0 % (1.0-6.0) H 02/08/18 07:45 Eos % (Auto) 0.0 % (1.5-5.0) L 02/08/18 07:45 Baso % (Auto) 0.1 % (0.0-3.0) 02/08/18 07:45 Gran # 8.70 (1.4-6.5) H 02/08/18 07:45 Lymph # (Auto) 0.8 (1.2-3.4) L 02/08/18 07:45 [place] # (Auto) 0.7 (0.1-0.6) H 02/08/18 07:45 Eos # (Auto) 0.0 (0.0-0.7) 02/08/18 07:45 Baso # (Auto) 0.01 K/mm3 (0.0-2.0) 02/08/18 07:45 Neutrophils % (Manual) 88 % (50.0-70.0) H 02/04/18 08:30 Band Neutrophils % 3 % (0-2) H 02/04/18 08:30 Lymphocytes % (Manual) 7 % (22.0-35.0) L 02/04/18 08:30 Monocytes % (Manual) 1 % (1.0-6.0) 02/04/18 08:30 Eosinophils % (Manual) 1 % (0.0-3.0) 02/04/18 08:30 PT 14.2 SECONDS (9.4-12.5) H 02/08/18 07:45 INR 1.23 02/08/18 07:45 APTT 31.8 Seconds (25.1-36.5) 02/04/18 01:55 D-Dimer, Quantitative 566 ng/mlDDU (0-243) H 02/04/18 08:30 Sodium 139 mmol/L (132-148) 02/08/18 07:45 Potassium 4.5 mmol/L (3.6-5.0) 02/08/18 07:45 Chloride 99 mmol/L (98-107) 02/08/18 07:45 Carbon Dioxide 32 mmol/L (21-33) 02/08/18 07:45 Anion Gap 13 (10-20) 02/08/18 07:45 BUN 10 mg/dL (7-21) 02/08/18 07:45 Creatinine 0.7 mg/dl (0.7-1.2) 02/08/18 07:45 Est GFR ( Amer) > 60 02/08/18 07:45 Est GFR (Non-Af Amer) > 60 02/08/18 07:45 Random Glucose 129 mg/dL (70-110) H 02/08/18 07:45 Calcium 9.3 mg/dL (8.4-10.5) 02/08/18 07:45 Phosphorus 3.8 mg/dL (2.5-4.5) 02/08/18 07:45 Magnesium 2.4 mg/dL (1.7-2.2) H 02/08/18 07:45 Total Bilirubin 0.4 mg/dL (0.2-1.3) 02/08/18 07:45 AST 27 U/L (14-36) 02/08/18 07:45 ALT 55 U/L (7-56) 02/08/18 07:45 Alkaline Phosphatase 75 U/L (38-126) 02/08/18 07:45 Lactate Dehydrogenase 661 U/L (333-699) 02/04/18 01:55 Total Creatine Kinase 233 U/L (35-230) H 02/04/18 01:55 CK-MB (CK-2) 2.8 ng/mL (0.0-3.6) 02/04/18 01:55 CK-MB (CK-2) % Cancelled 02/04/18 01:55 Troponin I < 0.01 ng/mL 02/04/18 01:55 Total Protein 6.8 g/dL (5.8-8.3) 02/08/18 07:45 Albumin 3.8 g/dL (3.0-4.8) 02/08/18 07:45 Globulin 3.0 gm/dL 02/08/18 07:45 Albumin/Globulin Ratio 1.3 (1.1-1.8) 02/08/18 07:45 Urine Opiates Screen Positive (NEGATIVE) H 02/04/18 11:30 Urine Methadone Screen Negative (NEGATIVE) 02/04/18 11:30 Ur Barbiturates Screen Negative (NEGATIVE) 02/04/18 11:30 Ur Phencyclidine Scrn Negative (NEGATIVE) 02/04/18 11:30 Ur Amphetamines Screen Negative (NEGATIVE) 02/04/18 11:30 U Benzodiazepines Scrn Negative (NEGATIVE) 02/04/18 11:30 U Oth Cocaine Metabols Positive (NEGATIVE) H 02/04/18 11:30 U Cannabinoids Screen Negative (NEGATIVE) 02/04/18 11:30 - Hospital Course Hospital Course: Pt seen and examined at bedside this am. She had no acute complaints this am. She reported marked improvement in R arm edema and R breast swelling. She denied fevers, chills, headache, dizziness, nausea, vomiting, chest pain, palpitations, shortness of breath, constipation, diarrhea, dysuria. 52 y/o female with PMHx of COPD, history of four pulmonary emboli over the past six months (currently on xarelto, s/p right IVC filter placement ~3 months ago), lung cancer (chemotherapy in 2015, after her right upper lobectomy, finished radiation therapy last year and is in remission for the past year), osteoart hritis, schizoaffective disorder who presented to the ED with complains of diffuse R arm swelling/pain along with R breast swelling and pain that she had been experiencing for a week previous to admission. She described it as a constant, 10/10 pain with alleviation from morphine, and oxycodone, worsened with movement and palpation. She has noticed increased redness and erythema to the arm. She denied numbness or tingling to the R arm. She also reported chronic shortness of breath alleviated with the inhalors she has. She denies recent surgery, long flights or immobilization. Pt was requesting oxycodone 30mg upon initial interview. She was recently admitted at [facility] and signed out AMA. During pts hospital stay, pt was admitted to med/surg for treatment of cellulitis of RUE/R breast. 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 The right internal jugular, right subclavian, right axillary vein were all patent. L arm revealed no DVT. Breast ultrasound revealed no malignancy or abscess. CT scan showed extensive edema in the R breast. Pt was treated for cellulitis for IV vancomycin for 5 days. She was also continued on her home xarelto medication. She had showed significant improvement in edema and tenderness of the R arm upon discharge. She was followed by infectious disease and her own heme-onc physician, Dr. Beck. Dr. Beck recommended that pt should follow-up outpatient with him upon discharge. He reports no active infection and that she wasn't being treated for cancer. He reports that he does not provide any pain medications to the pt. She was discharged with home oral antiobiotics, and instructed to follow-up with her primary care physician in 3-5 days. Instructions to follow-up with Dr. Beck were also given. Discharge Exam - Head Exam Head Exam: NORMAL INSPECTION - Eye Exam Eye Exam: EOMI, Normal appearance, PERRL - ENT Exam ENT Exam: Mucous Membranes Moist, Normal Exam - Respiratory Exam Respiratory Exam: NORMAL BREATHING PATTERN, UNREMARKABLE - Cardiovascular Exam Cardiovascular Exam: REGULAR RHYTHM, +S1, +S2 - GI/Abdominal Exam GI & Abdominal Exam: Normal Bowel Sounds - Extremities Exam Extremities exam: normal inspection Additional comments: R breast/RUE edema. Significantly improved - Back Exam Back exam: NORMAL INSPECTION - Neurological Exam Neurological exam: Alert, CN II-XII Intact, Oriented x3 - Psychiatric Exam Psychiatric exam: Normal Affect, Normal Mood - Skin Skin Exam: Dry, Intact, Warm Discharge Plan - Discharge Medications Prescriptions: Doxycycline Hyclate 100 mg PO BID #10 capsule levoFLOXacin [Levaquin] 750 mg PO DAILY #5 tab predniSONE [predniSONE Tab] 10 mg PO DAILY #18 tab - Follow Up Plan Condition: STABLE Disposition: HOME/ ROUTINE Instructions: Smoking: Not Just Harmful to Your Lungs and Heart, Non-small Cell Lung Cancer, Cocaine Use Disorder, Quitting Smoking, Anti-Clotting Medicines: Direct Oral Anticoagulants, Cellulitis (DC), Deep Venous Thrombosis (DC) Additional Instructions: Please follow up with your primary care doctor within 3-5 days of discharge. Please make sure you follow up to have your breast swelling further evaluated. Please follow up with your ornithology teacher/oncologist, Dr. Beck, within 2 weeks as scheduled. Please continue pulmonology follow up as scheduled prior to your admission. You are being sent home on two antibiotics and a prednisone taper as follows: 1. Levaquin 750mg daily (antibiotic): Please take daily for 5 days 2. Doxycycline 100mg twice daily (antibiotic): Please take twice daily for 5 days 3. Prednisone taper as follows: -Take 30mg daily for three days then take 20mg daily for three days and then 10mg daily for three days Please refrain from cocaine and tobacco use as discussed. If your symptoms return please seek emergency medical attention immediately
== END 2018-02-08 14:08 | disposition home or self-care (01) | DRG 277 ==
LOC: ED 23:04 → ERH 02-04 03:27 → 5RNO 02-04 05:06 → OBSVTOIN 02-06 15:24
PROVIDERS: ADMIT Internal Medicine; ATTEND Internal Medicine
DX: L03.113 Cellulitis of right upper limb (principal); C78.1 Secondary malignant neoplasm of mediastinum; I82.721 Chronic embolism and thrombosis of deep veins of right upper extremity; J44.1 Chronic obstructive pulmonary disease with (acute) exacerbation; F14.90 Cocaine use, unspecified, uncomplicated; F25.9 Schizoaffective disorder, unspecified; N61.0 Mastitis without abscess; I10 Essential (primary) hypertension; E66.9 Obesity, unspecified; Z92.3 Personal history of irradiation; Z92.21 Personal history of antineoplastic chemotherapy; Z85.118 Personal history of other malignant neoplasm of bronchus and lung; Z90.2 Acquired absence of lung [part of]; Z87.01 Personal history of pneumonia (recurrent); Z86.711 Personal history of pulmonary embolism; Z87.891 Personal history of nicotine dependence; Z79.02 Long term (current) use of antithrombotics/antiplatelets; Z68.34 Body mass index [BMI] 34.0-34.9, adult; Z80.3 Family history of malignant neoplasm of breast; Z82.49 Family history of ischemic heart disease and other diseases of the circulatory system; Z80.1 Family history of malignant neoplasm of trachea, bronchus and lung

== ENCOUNTER 2018-02-08 23:33 | Emergency (ER) | payer MEDICAID ==
[2018-02-08 23:49] VITALS: BP 145/92; PULSE 90; RESP 18; TEMP 98.2; BMI 35.8
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
[2018-02-09 00:45] LABS: GRAN # 7.25 (1.4-6.5); GRAN % 73.7 % (50.0-68.0); LYMPH # 1.6 (1.2-3.4); LYMPH % 16.4 % (22.0-35.0); MEAN CELL VOLUME 87.3 fl (80.0-105.0); MEAN CORPUSCULAR HEMOGLOBIN 28.4 pg (25.0-35.0); MEAN CORPUSCULAR HGB CONC 32.5 g/dl (31.0-37.0); MEAN PLATELET VOLUME 8.3 fl (7.0-11.0); MONO % 9.9 % (1.0-6.0); RBC 3.87 10^6/uL (3.5-6.1); RED CELL DISTRIBUTION WIDTH 15.6 % (11.5-14.5); WHITE BLOOD COUNT 9.8 10^3/ul (4.5-11.0)
[2018-02-09 00:50] LABS: INR 1.48; PARTIAL THROMBOPLASTIN TIME 28.3 Seconds (25.1-36.5)
[2018-02-09 01:01] LABS: ALB/GLOB RATIO 1.2 (1.1-1.8); ALBUMIN 3.5 g/dL (3.0-4.8); ALT/SGPT 50 U/L (7-56); AST/SGOT 24 U/L (14-36); BLOOD UREA NITROGEN 13 mg/dL (7-21); GFR NON-AFRICAN AMERICAN > 60
[2018-02-09 01:42] VITALS: O2SAT 95
== END 2018-02-09 01:41 | disposition home or self-care (01) ==
LOC: ED 23:33
DX: M79.89 Other specified soft tissue disorders (principal); I10 Essential (primary) hypertension; Z86.711 Personal history of pulmonary embolism; Z85.118 Personal history of other malignant neoplasm of bronchus and lung; F17.210 Nicotine dependence, cigarettes, uncomplicated

== ENCOUNTER 2018-02-13 10:32 | Inpatient (IN) | payer MEDICAID ==
[2018-02-13] MEDS ORDERED: Albuterol-Ipratrop 3 mg / 0.5 (3 ml) UD IH STA (11:29)
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
--- NOTE | 2018-02-13 12:19 | RAD ---
Date of service: 02/13/2018 HISTORY: sob COMPARISON: 02/07/2018 FINDINGS: LUNGS: There is linear scarring at the right lung base PLEURA: No significant pleural effusion identified, no pneumothorax apparent. CARDIOVASCULAR: Normal. Chronically widened mediastinum. Mild aortic tortuosity OSSEOUS STRUCTURES: No significant abnormalities. VISUALIZED UPPER ABDOMEN: Normal. OTHER FINDINGS: Left-sided Port-A-Cath. IMPRESSION: No active disease.
[2018-02-13 12:57] LABS: VENOUS BLOOD GAS BASE EXCESS 7.4 mmol/L (0.0-2.0); VENOUS BLOOD GAS PO2 39 mm/Hg (30-55); VENOUS BLOOD PH 7.37 (7.32-7.43)
[2018-02-13 12:58] LABS: EOS % 0.4 % (1.5-5.0); GRAN # 6.3 (1.4-6.5); GRAN % 75.1 % (50.0-68.0); HEMOGLOBIN 11.8 g/dL (12.0-16.0); LYMPH # 1.4 (1.2-3.4); LYMPH % 16.5 % (22.0-35.0); MEAN CELL VOLUME 89.2 fl (80.0-105.0); MEAN CORPUSCULAR HEMOGLOBIN 28.4 pg (25.0-35.0); MEAN CORPUSCULAR HGB CONC 31.8 g/dl (31.0-37.0); MEAN PLATELET VOLUME 8.4 fl (7.0-11.0); MONO # 0.7 (0.1-0.6); RBC 4.16 10^6/uL (3.5-6.1); RED CELL DISTRIBUTION WIDTH 16.5 % (11.5-14.5); WHITE BLOOD COUNT 8.4 10^3/ul (4.5-11.0)
[2018-02-13 13:06] LABS: INR 1.32; PARTIAL THROMBOPLASTIN TIME 28.5 Seconds (25.1-36.5); PROTHROMBIN TIME 15.3 SECONDS (9.4-12.5)
[2018-02-13 13:19] LABS: B-TYPE NATRIURETIC PEPTIDE 54.6 pg/mL (0-450); TROPONIN I < 0.01 ng/mL
[2018-02-13 13:37] LABS: ALB/GLOB RATIO 1.3 (1.1-1.8); ALBUMIN 3.6 g/dL (3.0-4.8); ALT/SGPT 69 U/L (7-56); AST/SGOT 27 U/L (14-36); BLOOD UREA NITROGEN 12 mg/dL (7-21); CALCIUM 9.2 mg/dL (8.4-10.5); GFR NON-AFRICAN AMERICAN 58
--- NOTE | 2018-02-13 14:44 | US ---
HISTORY: Arm pain and swelling. Evaluate for deep venous thrombosis. PHYSICIAN(S): Roberto Schwarz MD. FINDINGS: Acute hypoechoic occlusive thrombus is noted in the right internal jugular vein. The visualized right subclavian vein is patent with monophasic flow. No DVT is appreciated in the visualized segments of the proximal right upper extremity. The left internal jugular vein and visualized left subclavian vein are patent with monophasic flow. No DVT is appreciated in the deep venous system of the proximal left upper extremity. IMPRESSION: 1. Acute occlusive hypoechoic thrombus in the right internal jugular vein. 2. Monophasic flow noted in the right subclavian and left internal jugular and left subclavian veins. This raises the possibility of central occlusive disease. A CT scan of the chest with IV contrast can be performed if clinically indicated
[2018-02-13] MEDS ORDERED: Albuterol-Ipratrop 3 mg / 0.5 (3 ml) UD IH PRN ×2 (14:52→16:34)
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
[2018-02-13 15:14] LABS: PHENCYCLIDINE, UR NEGATIVE (NEGATIVE)
[2018-02-13 15:18] LABS: BARBITURATES, UR NEGATIVE (NEGATIVE); BENZODIAZEPINES, UR NEGATIVE (NEGATIVE); OPIATES, UR POSITIVE (NEGATIVE)
[2018-02-13] MEDS: oxyCODONE 30 mg Immediate Release Tab PO PRN ×2 (15:33→21:25)
[2018-02-13] MEDS: levoFLOXacin 500 mg in D5W 500 MG/100 ML BAG IVPB SCH (15:33)
[2018-02-13] MEDS: Furosemide 40 mg/5 mL Oral Soln UD PO SCH (15:44)
--- NOTE | 2018-02-13 15:47 | CARD ---
APPROVED REPORT Date of service: 02/13/2018 EKG Measurement Heart [id number] <Conclusion> Sinus tachycardia Otherwise normal ECG
[2018-02-13] MEDS: Albuterol-Ipratrop 3 mg / 0.5 (3 ml) UD IH SCH (20:06)
[2018-02-13 21:20] VITALS: BMI 35.2
[2018-02-13] MEDS ORDERED: Pneumococcal 23-Valent Vaccine IM ONE (21:20)
[2018-02-13] MEDS ORDERED: Influenza Vaccine 60 mcg/0.5 mL SYR (4YR UP) IM ONE (21:20)
[2018-02-13] MEDS: Divalproex 250 mg DR (BID formulation) PO SCH (21:25)
[2018-02-13] MEDS: MethylPREDNISolone 40 mg Vial IVP SCH (21:26)
[2018-02-13] MEDS: Vancomycin 1gm in NS 250ml 1 GM/250 ML BAG IVPB SCH (21:26)
[2018-02-13] MEDS: Promethazine/Cod 6.25mg-10mg/5ml Syr UD PO SCH (21:26)
--- NOTE | 2018-02-13 23:15 | CARD ---
APPROVED REPORT Date of service: 02/13/2018 EKG Measurement Heart [id number] <Conclusion> Sinus tachycardia Otherwise normal ECG
[2018-02-14] MEDS: Albuterol-Ipratrop 3 mg / 0.5 (3 ml) UD IH SCH ×4 (01:40→19:50)
[2018-02-14] MEDS: oxyCODONE 30 mg Immediate Release Tab PO PRN ×3 (05:37→22:06)
[2018-02-14 07:01] LABS: GRAN # 8.78 (1.4-6.5); GRAN % 87.8 % (50.0-68.0); HEMOGLOBIN 11.1 g/dL (12.0-16.0); LYMPH % 9.5 % (22.0-35.0); MEAN CELL VOLUME 87.9 fl (80.0-105.0); MEAN CORPUSCULAR HGB CONC 31.8 g/dl (31.0-37.0); MEAN PLATELET VOLUME 8.9 fl (7.0-11.0); MONO # 0.3 (0.1-0.6); MONO % 2.7 % (1.0-6.0); RBC 3.97 10^6/uL (3.5-6.1); RED CELL DISTRIBUTION WIDTH 16.2 % (11.5-14.5)
[2018-02-14 07:12] LABS: INR 1.12; PARTIAL THROMBOPLASTIN TIME 25.8 Seconds (25.1-36.5); PROTHROMBIN TIME 12.9 SECONDS (9.4-12.5)
[2018-02-14 07:31] LABS: ALB/GLOB RATIO 1.4 (1.1-1.8); ALBUMIN 3.5 g/dL (3.0-4.8); ALT/SGPT 54 U/L (7-56); AST/SGOT 29 U/L (14-36); BLOOD UREA NITROGEN 11 mg/dL (7-21); CALCIUM 9.2 mg/dL (8.4-10.5); GFR NON-AFRICAN AMERICAN 58
[2018-02-14] MEDS: Divalproex 250 mg DR (BID formulation) PO SCH ×2 (10:04→22:06)
[2018-02-14] MEDS: Furosemide 40 mg/5 mL Oral Soln UD PO SCH (10:04)
[2018-02-14] MEDS: Promethazine/Cod 6.25mg-10mg/5ml Syr UD PO SCH ×2 (10:05→22:08)
[2018-02-14] MEDS: levoFLOXacin 500 mg in D5W 500 MG/100 ML BAG IVPB SCH (10:05)
[2018-02-14] MEDS: MethylPREDNISolone 40 mg Vial IVP SCH ×2 (10:06→22:09)
[2018-02-14] MEDS: Vancomycin 1gm in NS 250ml 1 GM/250 ML BAG IVPB SCH (10:06)
--- NOTE | 2018-02-14 16:43 | CP.PCM.PN ---
<Michelle Gallagher - Last Filed: 02/14/18 17:05> Subjective - Date & Time of Evaluation Date of Evaluation: 02/14/18 Time of Evaluation: 16:40 - Subjective Subjective: INTERNAL MEDICINE PROGRESS NOTE Michelle Gallagher PGY-1 Pt seen and examined at bedside. No acute events overnight. Pt tolerated diet well. Pt to undergo port-a-cath removal procedure today. Pt reports swelling in R arm with decreased ROM. All other ROS is negative. Objective - Vital Signs/Intake and Output Vital Signs (last 24 hours): Temp Pulse Resp BP Pulse Ox 98 F 124 H 20 132/86 94 L 02/14/18 14:00 02/14/18 14:00 02/14/18 14:00 02/14/18 14:00 02/14/18 14:00 - Medications Medications: Current Medications Albuterol/Ipratropium (Duoneb 3 Mg/0.5 Mg (3 Ml) Ud) 3 ml IH [id number] JOSE Last Admin: 02/14/18 13:16 Dose: 3 ml Albuterol/Ipratropium (Duoneb 3 Mg/0.5 Mg (3 Ml) Ud) 3 ml IH Q2H PRN PRN Reason: Shortness of Breath Divalproex Sodium (Depakote Dr (*Bid*)) 250 mg PO BID JOSE; Protocol Last Admin: 02/14/18 10:04 Dose: 250 mg Docusate Sodium (Colace) 100 mg PO TID JOSE Last Admin: 02/14/18 14:22 Dose: 100 mg Furosemide (Lasix) 40 mg PO DAILY JOSE Last Admin: 02/14/18 10:04 Dose: 40 mg Vancomycin HCl (Vancomycin 1gm) 1 gm in 250 mls @ 167 mls/hr IVPB DAILY JOSE; Protocol Last Admin: 02/14/18 10:06 Dose: 167 mls/hr Levofloxacin/Dextrose (Levaquin 500mg) 500 mg in 100 mls @ 100 mls/hr IVPB DAILY JOSE; Protocol Last Admin: 02/14/18 10:05 Dose: 100 mls/hr Methylprednisolone (Solu-Medrol) 40 mg IVP Q12 JOSE Last Admin: 02/14/18 10:06 Dose: 40 mg Oxycodone HCl (Oxycodone Immediate Release Tab) 30 mg PO Q6H PRN PRN Reason: Pain, severe (8-10) Last Admin: 02/14/18 15:22 Dose: 30 mg Promethazine HCl/Codeine (Phenergan/Codeine Oral Syrup) 5 ml PO BID JOSE Last Admin: 02/14/18 10:05 Dose: 5 ml Risperidone (Risperdal Tab) 0.5 mg PO BID JOSE; Protocol Last Admin: 02/14/18 10:05 Dose: 0.5 mg - Labs Labs: 02/14/18 06:20 02/14/18 06:20 PT 12.9 SECONDS (9.4-12.5) H 02/14/18 06:20 INR 1.12 02/14/18 06:20 APTT 25.8 Seconds (25.1-36.5) 02/14/18 06:20 - Constitutional Appears: Well, Non-toxic, No Acute Distress - Head Exam Head Exam: NORMAL INSPECTION, NORMOCEPHALIC - Eye Exam Eye Exam: EOMI, Normal appearance - ENT Exam ENT Exam: Mucous Membranes Moist, Normal Exam - Neck Exam Neck Exam: Normal Inspection. absent: Meningismus - Respiratory Exam Respiratory Exam: Clear to Ausculation Bilateral, NORMAL BREATHING PATTERN - Cardiovascular Exam Cardiovascular Exam: REGULAR RHYTHM, +S1, +S2 - GI/Abdominal Exam GI & Abdominal Exam: Soft, Normal Bowel Sounds. absent: Tenderness - Extremities Exam Extremities Exam: absent: Calf Tenderness Additional comments: RUE edema/erythema - Back Exam Back Exam: absent: CVA tenderness (L), CVA tenderness (R) - Neurological Exam Neurological Exam: Alert, Awake, Oriented x3 - Psychiatric Exam Psychiatric exam: Normal Affect, Normal Mood - Skin Skin Exam: Dry, Intact, Warm Assessment and Plan - Assessment and Plan (Free Text) Assessment: 52 y/o F with PMHx breast Ca s/p lobectomy, PE x 4 s/p IVC filter placement on xarelto admitted for thrombus noted in R IJ vein. Pt presented with RUE and diffuse neck swelling. Pt to undergo port-a-cath removal today in OR. Plan: R arm swelling/pain Secondary to acute occlusive thrombus in R IJ vein Pt to undergo removal of port-a-cath in OR today Pt on home xarelto. Hold for procedure Resume based on surgeon recs Pt to undergo thrombectomy/thrombolysis with IR? Hx of COPD Continue duoneb q6h jose Continue duoneb q2h prn Continue levofloxacin Continue solu-medrol q12h Hx of Breast Ca Continue home oxycodone Hx of schizoaffective disorder Continue home depakote Cocaine abuse advised cessation DVT/GI PPx: SCD/Protonix Case seen, examined and discussed with attending physician, Dr. Ambrosio <Dany Ambrosio - Last Filed: 02/15/18 18:18> Objective - Vital Signs/Intake and Output Vital Signs (last 24 hours): Temp Pulse Resp BP Pulse Ox 97.8 F 96 H 20 154/79 H 93 L 02/15/18 14:00 02/15/18 14:00 02/15/18 14:00 02/15/18 14:00 02/15/18 14:00 - Medications Medications: Current Medications Albuterol/Ipratropium (Duoneb 3 Mg/0.5 Mg (3 Ml) Ud) 3 ml IH [id number] [facility] Last Admin: 02/15/18 13:04 Dose: 3 ml Albuterol/Ipratropium (Duoneb 3 Mg/0.5 Mg (3 Ml) Ud) 3 ml IH Q2H PRN PRN Reason: Shortness of Breath Divalproex Sodium (Depakote Dr (*Bid*)) 250 mg PO BID [facility]; Protocol Last Admin: 02/15/18 17:42 Dose: 250 mg Docusate Sodium (Colace) 100 mg PO TID [facility] Last Admin: 02/15/18 15:34 Dose: Not Given Enoxaparin Sodium (Lovenox) 110 mg SC Q12H [facility]; Protocol Last Admin: 02/15/18 09:26 Dose: 110 mg Furosemide (Lasix) 40 mg PO DAILY [facility] Last Admin: 02/15/18 09:33 Dose: 40 mg Levofloxacin (Levaquin) 500 mg PO DAILY [facility] Methylprednisolone (Solu-Medrol) 40 mg IVP Q12 [facility] Last Admin: 02/15/18 09:25 Dose: 40 mg Ondansetron HCl (Zofran Inj) 4 mg IVP Q6H PRN PRN Reason: Nausea/Vomiting Oxycodone HCl (Oxycodone Immediate Release Tab) 30 mg PO Q6H PRN PRN Reason: Pain, severe (8-10) Last Admin: 02/15/18 15:29 Dose: 30 mg Pantoprazole Sodium (Protonix Ec Tab) 40 mg PO ACB JOSE Promethazine HCl/Codeine (Phenergan/Codeine Oral Syrup) 5 ml PO BID JOSE Last Admin: 02/15/18 17:41 Dose: 5 ml Risperidone (Risperdal Tab) 0.5 mg PO BID JOSE; Protocol Last Admin: 02/15/18 17:41 Dose: 0.5 mg - Labs Labs: 02/14/18 06:20 02/14/18 06:20 PT 12.9 SECONDS (9.4-12.5) H 02/14/18 06:20 INR 1.12 02/14/18 06:20 APTT 25.8 Seconds (25.1-36.5) 02/14/18 06:20 Attending/Attestation - Attestation I have personally seen and examined this patient.: Yes I have fully participated in the care of the patient.: Yes I have reviewed all pertinent clinical information, including history, physical exam and plan: Yes Notes (Text): 02/15/18 18:17 attending note; Patient seen and examined with resident. Patient is alert and awake. Complaining of swelling and pain both arms and chest area. also complaining of shortness of breath and wheezing. patient is afebrile and nontoxic. Patient is a 52 -year-old female with PMHx of COPD, history pulmonary emboli over the past six months (currently on xarelto, s/p right IVC filter placement ~3 months ago), lung cancer (chemotherapy in 2014, after her right upper lobectomy, finished radiation therapy last year and is in remission for the past year), osteoarthritis, schizoaffective disorder, active smoking, chronic opiate dependency is admitted for bilateral upper extremity and chest swelling. Ultrasound showed DVT of right IJ. Ultrasound on previous CAT scan reviewed with Dr. Roberto Schwarz. SVC syndrome. Plan for Port-A-Cath removal today. Acute COPD exacerbation; continue oxygen, DuoNeb and IV Solumedrol. active smoking; smoking cessation is strongly advised. History of lung cancer and right lobectomy. schizoaffective disorder; continue risperidone and Depakote. Chronic opiate dependency; patient recently filled prescption with Dr. Ponce. Continue oxycodone. Case discussed with Dr. Roberto Schwarz in detail. The diagnosis and treatment option explained to the patient in detail. 02/15/18 18:18
[2018-02-14] MEDS ORDERED: Lidocaine 2% PF (10 ml) Amp ONE (17:45)
[2018-02-14] MEDS ORDERED: Midazolam 2 MG/2 ML VIAL ONE ×2 (18:58→19:08)
[2018-02-14] MEDS ORDERED: Sodium Chloride 0.45% 1,000 ML IV SCH (19:45)
--- NOTE | 2018-02-14 20:30 | VASCULAR ---
Date of service: 02/14/2018 PROCEDURE: Ultrasound fluoroscopic PICC line placement HISTORY: COMPARISON: TECHNIQUE: The left arm was prepped and draped usual sterile fashion. A tourniquet was applied left axilla. Sonography revealed a patent left basilic vein. Under ultrasound guidance, the left basilic vein was punctured above the elbow with a micropuncture set. A peel-away sheath was placed. A 5 Croatian single lumen line 20 cm long was placed in the left basilic vein. The catheter was flushed and secured. The patient tolerated the procedure well P FINDINGS: IMPRESSION: Ultrasound fluoroscopically placed left upper extremity PICC line. A 20 cm catheter was placed to avoid issues with the known superior vena cava stenosis.
--- NOTE | 2018-02-14 20:31 | VASCULAR ---
Date of service: 02/14/2018 PROCEDURE: Removal the patient's left subclavian Port-A-Cath HISTORY: REMOVAL VENOUS PORT. SVC syndrome. Upper extremity and head and neck swelling. COMPARISON: TECHNIQUE: Left chest was prepped and draped usual sterile fashion. Conscious sedation monitoring were provided throughout the procedure by a nurse. A 3 cm incision was made at the level of the port. Blood subtle dissection was performed. The port catheter removed. The pocket was closed in 2 layers. The patient tolerated the procedure well. FINDINGS: IMPRESSION: Removal the patient's left subclavian Port-A-Cath.
[2018-02-15] MEDS: Albuterol-Ipratrop 3 mg / 0.5 (3 ml) UD IH SCH ×4 (01:08→19:46)
[2018-02-15] MEDS: oxyCODONE 30 mg Immediate Release Tab PO PRN ×4 (03:10→20:25)
[2018-02-15 07:48] VITALS: RESP 20
[2018-02-15] MEDS: MethylPREDNISolone 40 mg Vial IVP SCH ×2 (09:25→22:50)
[2018-02-15] MEDS: Enoxaparin 120 mg Syringe SC SCH ×2 (09:26→21:16)
[2018-02-15] MEDS: Promethazine/Cod 6.25mg-10mg/5ml Syr UD PO SCH ×2 (09:26→17:41)
[2018-02-15] MEDS: Divalproex 250 mg DR (BID formulation) PO SCH ×2 (09:26→17:42)
[2018-02-15] MEDS: levoFLOXacin 500 mg in D5W 500 MG/100 ML BAG IVPB SCH (09:32)
[2018-02-15] MEDS: Vancomycin 1gm in NS 250ml 1 GM/250 ML BAG IVPB SCH (09:32)
[2018-02-15] MEDS: Furosemide 40 mg/5 mL Oral Soln UD PO SCH (09:33)
--- NOTE | 2018-02-15 09:55 | CP.PCM.PN ---
<Michelle Gallagher - Last Filed: 02/15/18 14:17> Subjective - Date & Time of Evaluation Date of Evaluation: 02/15/18 Time of Evaluation: 09:52 - Subjective Subjective: INTERNAL MEDICINE PROGRESS NOTE FOR DR. KERI Gallagher PGY-1 Pt seen and examined at bedside this am. Pt is s/p L subclavian port-a-cath removal and L PICC line placement. She reports soreness on subclavian line removal site. No acute nursing events overnight. Pt to undergo venogram with IR. IR reports pt will not be able to get venogram until next week. She has no complaints this am, requesting a regular diet. Pt still reporting wheezing which is chronic, has been receiving duoneb treatments. All other ROS are negative Objective - Vital Signs/Intake and Output Vital Signs (last 24 hours): Temp Pulse Resp BP Pulse Ox 98.3 F 99 H 20 144/96 H 94 L 02/15/18 06:00 02/15/18 06:00 02/15/18 06:00 02/15/18 09:33 02/15/18 06:00 - Medications Medications: Current Medications Albuterol/Ipratropium (Duoneb 3 Mg/0.5 Mg (3 Ml) Ud) 3 ml IH [id number] [facility] Last Admin: 02/15/18 07:15 Dose: 3 ml Albuterol/Ipratropium (Duoneb 3 Mg/0.5 Mg (3 Ml) Ud) 3 ml IH Q2H PRN PRN Reason: Shortness of Breath Divalproex Sodium (Depmiranda Barcenas (*Bid*)) 250 mg PO BID JOSE; Protocol Last Admin: 02/15/18 09:26 Dose: 250 mg Docusate Sodium (Colace) 100 mg PO TID JOSE Last Admin: 02/15/18 09:25 Dose: 100 mg Enoxaparin Sodium (Lovenox) 110 mg SC Q12H JOSE; Protocol Last Admin: 02/15/18 09:26 Dose: 110 mg Furosemide (Lasix) 40 mg PO DAILY JOSE Last Admin: 02/15/18 09:33 Dose: 40 mg Vancomycin HCl (Vancomycin 1gm) 1 gm in 250 mls @ 167 mls/hr IVPB DAILY JOSE; Protocol Last Admin: 02/15/18 09:32 Dose: 167 mls/hr Levofloxacin/Dextrose (Levaquin 500mg) 500 mg in 100 mls @ 100 mls/hr IVPB DAILY JOSE; Protocol Last Admin: 02/15/18 09:32 Dose: 100 mls/hr Methylprednisolone (Solu-Medrol) 40 mg IVP Q12 [facility] Last Admin: 02/15/18 09:25 Dose: 40 mg Ondansetron HCl (Zofran Inj) 4 mg IVP Q6H PRN PRN Reason: Nausea/Vomiting Oxycodone HCl (Oxycodone Immediate Release Tab) 30 mg PO Q6H PRN PRN Reason: Pain, severe (8-10) Last Admin: 02/15/18 09:26 Dose: 30 mg Pantoprazole Sodium (Protonix Inj) 40 mg IVP DAILY [facility] Last Admin: 02/15/18 09:25 Dose: 40 mg Promethazine HCl/Codeine (Phenergan/Codeine Oral Syrup) 5 ml PO BID JOSE Last Admin: 02/15/18 09:26 Dose: 5 ml Risperidone (Risperdal Tab) 0.5 mg PO BID JOSE; Protocol Last Admin: 02/15/18 09:25 Dose: 0.5 mg - Labs Labs: 02/14/18 06:20 02/14/18 06:20 PT 12.9 SECONDS (9.4-12.5) H 02/14/18 06:20 INR 1.12 02/14/18 06:20 APTT 25.8 Seconds (25.1-36.5) 02/14/18 06:20 - Constitutional Appears: Well, Non-toxic, No Acute Distress - Head Exam Head Exam: NORMAL INSPECTION, NORMOCEPHALIC - Eye Exam Eye Exam: EOMI, Normal appearance - ENT Exam ENT Exam: Mucous Membranes Moist, Normal Exam - Neck Exam Neck Exam: Normal Inspection. absent: Meningismus - Respiratory Exam Respiratory Exam: Wheezes, NORMAL BREATHING PATTERN - Cardiovascular Exam Cardiovascular Exam: Tachycardia, +S1, +S2 - GI/Abdominal Exam GI & Abdominal Exam: Soft. absent: Tenderness - Extremities Exam Extremities Exam: Normal Inspection. absent: Calf Tenderness - Back Exam Back Exam: NORMAL INSPECTION - Neurological Exam Neurological Exam: Alert, Awake, Oriented x3 - Psychiatric Exam Psychiatric exam: Normal Affect, Normal Mood - Skin Skin Exam: Dry, Warm Additional comments: L subclavian dressing in place. Clean/dry/intact L PICC in place. Dressing noted to be soaked with blood. Assessment and Plan - Assessment and Plan (Free Text) Assessment: 52 y/o F with PMHx breast Ca s/p lobectomy, PE x 4 s/p IVC filter placement on xarelto admitted for thrombus noted in R IJ vein. Pt presented with RUE and diffuse neck swelling. Pt to undergo port-a-cath removal today in OR. Plan: R arm swelling/pain Secondary to acute occlusive thrombus in R IJ vein Pt s/p L subclavian port-a-cath removal Pt is s/p PICC line placement Replace PICC dressing Continue therapeutic lovenox treament Pt to undergo thrombectomy/thrombolysis/angioplasty per IR recs. Per Dr. Schwarz, pt wont be able to undergo venogram until next week due to scheduling. Hx of COPD Continue duoneb q6h jose Continue duoneb q2h prn Continue levofloxacin Continue solu-medrol q12h Hx of Breast Ca Continue home oxycodone/oxycontin Hx of schizoaffective disorder Continue home depakote Cocaine abuse advised cessation DVT/GI PPx: SCD/Protonix Case seen, examined and discussed with attending physician, Dr. Ambrosio <Dany Ambrosio - Last Filed: 02/15/18 18:20> Objective - Vital Signs/Intake and Output Vital Signs (last 24 hours): Temp Pulse Resp BP Pulse Ox 97.8 F 96 H 20 154/79 H 93 L 02/15/18 14:00 02/15/18 14:00 02/15/18 14:00 02/15/18 14:00 02/15/18 14:00 - Medications Medications: Current Medications Albuterol/Ipratropium (Duoneb 3 Mg/0.5 Mg (3 Ml) Ud) 3 ml IH [id number] JOSE Last Admin: 02/15/18 13:04 Dose: 3 ml Albuterol/Ipratropium (Duoneb 3 Mg/0.5 Mg (3 Ml) Ud) 3 ml IH Q2H PRN PRN Reason: Shortness of Breath Divalproex Sodium (Depakote Dr (*Bid*)) 250 mg PO BID JOSE; Protocol Last Admin: 02/15/18 17:42 Dose: 250 mg Docusate Sodium (Colace) 100 mg PO TID [facility] Last Admin: 02/15/18 15:34 Dose: Not Given Enoxaparin Sodium (Lovenox) 110 mg SC Q12H [facility]; Protocol Last Admin: 02/15/18 09:26 Dose: 110 mg Furosemide (Lasix) 40 mg PO DAILY [facility] Last Admin: 02/15/18 09:33 Dose: 40 mg Levofloxacin (Levaquin) 500 mg PO DAILY [facility] Methylprednisolone (Solu-Medrol) 40 mg IVP Q12 [facility] Last Admin: 02/15/18 09:25 Dose: 40 mg Ondansetron HCl (Zofran Inj) 4 mg IVP Q6H PRN PRN Reason: Nausea/Vomiting Oxycodone HCl (Oxycodone Immediate Release Tab) 30 mg PO Q6H PRN PRN Reason: Pain, severe (8-10) Last Admin: 02/15/18 15:29 Dose: 30 mg Pantoprazole Sodium (Protonix Ec Tab) 40 mg PO ACB [facility] Promethazine HCl/Codeine (Phenergan/Codeine Oral Syrup) 5 ml PO BID [facility] Last Admin: 02/15/18 17:41 Dose: 5 ml Risperidone (Risperdal Tab) 0.5 mg PO BID [facility]; Protocol Last Admin: 02/15/18 17:41 Dose: 0.5 mg - Labs Labs: 02/14/18 06:20 02/14/18 06:20 PT 12.9 SECONDS (9.4-12.5) H 02/14/18 06:20 INR 1.12 02/14/18 06:20 APTT 25.8 Seconds (25.1-36.5) 02/14/18 06:20 Attending/Attestation - Attestation I have personally seen and examined this patient.: Yes I have fully participated in the care of the patient.: Yes I have reviewed all pertinent clinical information, including history, physical exam and plan: Yes Notes (Text): 02/15/18 18:18 attending note; Patient seen and examined with resident. Patient is alert and awake. status post Port-A-Cath removal in theLeft chest area. No bleeding noted. Left upper arm PICC line placed. Dressing intact. Still complaining of mild shortness of breath with wheezing. Patient is a 52 -year-old female with PMHx of COPD, history pulmonary emboli over the past six months (currently on xarelto, s/p right IVC filter placement ~3 months ago), lung cancer (chemotherapy in 2014, after her right upper lobectomy, finished radiation therapy last year and is in remission for the past year), osteoarthritis, schizoaffective disorder, active smoking, chronic opiate dependency is admitted for bilateral upper extremity and chest swelling. SVC syndrome. with a right IJ thrombus. s/p Port-A-Cath removal yesterday. s/p left PICC line placement. Acute COPD exacerbation; continue oxygen, DuoNeb and IV Solumedrol. improving slowly. active smoking; smoking cessation is strongly advised. History of lung cancer and right lobectomy. schizoaffective disorder; continue risperidone and Depakote. Chronic opiate dependency; patient recently filled prescption with Dr. Ponce. Continue oxycodone. history of PE; started on subcutaneous Lovenox. Plan for venogram. Upon discharge the patient will follow-up with PMD of choice and oncology Dr. Beck. The diagnosis and treatment option explained to the patient in detail.
[2018-02-16] MEDS: oxyCODONE 30 mg Immediate Release Tab PO PRN ×3 (01:01→13:24)
[2018-02-16] MEDS: Albuterol-Ipratrop 3 mg / 0.5 (3 ml) UD IH SCH ×3 (02:00→13:04)
[2018-02-16] MEDS ORDERED: Pantoprazole 40 mg EC Tab PO SCH (07:30)
[2018-02-16] MEDS: Promethazine/Cod 6.25mg-10mg/5ml Syr UD PO SCH (09:11)
[2018-02-16] MEDS: MethylPREDNISolone 40 mg Vial IVP SCH (09:11)
[2018-02-16] MEDS: Furosemide 40 mg/5 mL Oral Soln UD PO SCH (09:12)
[2018-02-16] MEDS: Divalproex 250 mg DR (BID formulation) PO SCH (09:12)
[2018-02-16] MEDS: Enoxaparin 120 mg Syringe SC SCH (09:13)
[2018-02-16] MEDS ORDERED: levoFLOXacin 500 MG TAB PO SCH (10:00)
[2018-02-16] MEDS ORDERED: Iodixanol 320 MG/ML 100 ML BOTTLE IV ONE (15:16)
[2018-02-16] MEDS ORDERED: Nitroglycerin 50mg in D5W 50 MG/250 ML BOTTLE IV ONE (15:16)
[2018-02-16] MEDS ORDERED: Lidocaine 2% PF (10 ml) Amp ONE (15:16)
[2018-02-16] MEDS ORDERED: Iodixanol 320 MG/ML 200 ML BOTTLE IV ONE (15:16)
[2018-02-16] MEDS ORDERED: Midazolam 2 MG/2 ML VIAL ONE ×3 (15:49→16:22)
[2018-02-16] MEDS ORDERED: Vancomycin 500 mg (Oral/Rectal USE) ONE (16:27)
[2018-02-16] MEDS ORDERED: Heparin25000 units/250ml 1/2NS 25,000 UNITS/250 ML BAG IV ONE (16:33)
--- NOTE | 2018-02-16 16:46 | PCM.RRT ---
SAW [facility]EDER Nurse Assessment - Situation Date: 02/16/18 SAW FEEDER Location:: Vascular [facility] Called By: Physician - IV IV Inserted during SAW FEEDER?: Yes - Respiratory Oxygen Delivery Method: Intubated Received Nebulizer Treatments:: No Was the Patient Ventilated with Bag/Mask 100% O2?: Yes Secretions Suctioned?: No Was the Patient Intubated?: Yes - Diagnostic Test Ordered EKG: Yes Plan - Assessment of Findings&Treatment Plan Code Blue #1: Called in vascular lab. CPR initiated immediately. IV epi x 1. Bicarb x 1. ROSC achieved after 1 round. Code Blue #2: CPR initiated immediately. Arterial line placed. TPA administered . IV epi given every 3-5 minutes for 4 rounds. Bicarb x 3. ROSC achieved after 4 rounds. Code Blue #3 CPR initiated immediately. Epi given every 3-5 minutes. Levophed started. IV epi given every 3-5 minutes for 4 rounds. Atropine x 2. Bicarb x 1. Cardiac U/S revealed pericardial effusion. IR performed pericardiocentesis. Pulses were not felt despite ACLS protocol. No Response Verbal/Painful Stimuli, Absent Peripheral Pulses{Carotid & Femoral}, Absent Heart & Breath Sounds, Pupils Fixed & Dilated, Absence of Vital Signs. Patient pronounced at approximately 5:33pm.
[2018-02-16] MEDS ORDERED: Sodium Bicarbonate (8.4%) 50 Meq Syringe IVP ONE (17:33)
--- NOTE | 2018-02-16 18:26 | CP.PCM.PRO ---
Pronouncement of Note - Clinical Findings Physical Exam: No Response Verbal/Painful Stimuli, Absent Peripheral Puls es{Carotid & Femoral}, Absent Heart & Breath Sounds, Pupils Fixed & Dilated, Absence of Vital Signs - Pronouncement Time Time of Pronouncement of : 17:33 - Notifications Pronouncement Notifications: Family Notified, Atending Notified Motorcycle Tester Notified: Yes - [place] [id number]
[2018-02-16 18:27] VITALS: BP 139/80; PULSE 88; TEMP 98.2; O2SAT 94
--- NOTE | 2018-02-16 19:03 | CP.CCUPN ---
CCU Objective - Vital Signs / Intake & Output Intake and Output (Last 8hrs): Intake & Output 02/16/18 02/16/18 02/16/18 06:59 14:59 22:59 Intake Total 360 Balance 360 Intake: Oral 360 Other: # Voids Urine, Voided 4 # Bowel Movements 0 - Physical Exam Head: Positive for: Atraumatic, Normocephalic Pupils: Positive for: PERRL Extroacular Muscles: Positive for: EOMI Conjunctiva: Positive for: Normal Ears: Positive for: Normal Mouth: Positive for: Moist Mucous Membranes Nose (External): Positive for: Atraumatic Nose (Internal): Positive for: Normal Inspection Neck: Positive for: Normal Range of Motion. Negative for: Meningeal Signs, MIDLINE TENDERNESS, JVD Respiratory/Chest: Positive for: Clear to Auscultation, Good Air Exchange. Negative for: Accessory Muscle Use, Wheezes, Decreased Breath Sounds Cardiovascular: Positive for: Tachycardic. Negative for: Murmurs, Normal S1, S2 Abdomen: Positive for: Normal Bowel Sounds. Negative for: Tenderness, Distention, Peritoneal Signs, Rebound, Guarding Breast/Axillary: Negative for: Discoloration, Erythema Back: Positive for: Normal Inspection. Negative for: CVA Tenderness, Midline Tenderness Upper Extremity: Positive for: Edema, Neurovascularly Intact, Capillary Refill < 2s Lower Extremity: Positive for: Edema, Neurovascularly Intact, Capillary Refill < 2 s Neurological: Positive for: GCS=15 Skin: Positive for: Warm, Dry Psychiatric: Positive for: Alert, Oriented x 3, Normal Insight - Medications Active Medications: Active Medications Generic Name Dose Route Start Last Admin Trade Name Freq PRN Reason Stop Dose Admin Albuterol/Ipratropium 3 ml 02/13/18 20:00 02/16/18 13:04 Duoneb 3 Mg/0.5 Mg (3 Ml) Ud IH 3 ml [id number] [facility]OP[facility]IA Administration Albuterol/Ipratropium 3 ml 02/13/18 16:34 02/16/18 14:43 Duoneb 3 Mg/0.5 Mg (3 Ml) Ud IH 3 ml Q2H PRN Administration Shortness of Breath Divalproex Sodium 250 mg 02/13/18 18:00 02/16/18 09:12 Aldair Barcenas (*Bid*) PO 250 mg BID [facility] Administration Protocol Docusate Sodium 100 mg 10/16/18 18:00 02/16/18 09:11 Colace PO 100 mg TID [facility]OP[facility]IA Administration Enoxaparin Sodium 110 mg 02/15/18 09:00 02/16/18 09:13 Lovenox SC 110 mg Q12H [facility] Administration Protocol Furosemide 40 mg 02/13/18 15:00 02/16/18 09:12 Lasix PO 40 mg DAILY [facility] Administration Levofloxacin 500 mg 02/16/18 10:00 02/16/18 09:11 Levaquin PO 500 mg DAILY [facility] Administration Methylprednisolone 40 mg 02/13/18 22:00 02/16/18 09:11 Solu-Medrol IVP 40 mg Q12 [facility] Administration Ondansetron HCl 4 mg 02/14/18 19:33 02/16/18 14:31 Zofran Inj IVP 4 mg Q6H PRN Administration Nausea/Vomiting Oxycodone HCl 30 mg 02/13/18 14:52 02/16/18 13:24 Oxycodone Immediate Release Tab PO 30 mg Q6H PRN Administration Pain, severe (8-10) Pantoprazole Sodium 40 mg 02/16/18 07:30 02/16/18 08:31 Protonix Ec Tab PO 40 mg ACB [facility] Administration Promethazine HCl/Codeine 5 ml 02/13/18 18:00 02/16/18 09:11 Phenergan/Codeine Oral Syrup PO 5 ml BID [facility] Administration Risperidone 0.5 mg 02/13/18 18:00 02/16/18 09:11 Risperdal Tab PO 0.5 mg BID [facility] Administration Protocol - Patient Studies Lab Studies: Microbiology Studies 02/13/18 13:20 Blood Culture - Preliminary Blood NO GROWTH AFTER 3 DAYS 02/13/18 12:45 Blood Culture - Preliminary Blood NO GROWTH AFTER 3 DAYS Critical Care Progress Note - Nutrition Nutrition: Nutrition Category Date Time Status Liquid Diet [DIET] Diets 02/16/18 Lunch Ordered Addendum Addendum: 02/16/18 18:50 PLEASE DISREGARD ANY DOCUMENTATION ABOVE THIS NOTE (AUTOPOPULATED) CODE BLUE called over head. Arrived to IR / Vasc lab notified by Dr Schwarz patient was having port removed known hx of PE Pt was in asystole Initially she regained her pulse, began snoring Intubated by rt, breath sounds hear BL shortly after, lost her pulse CPR initiated again Suspect PE given history, gave full dose tpa continued CPR shortly regained pulse, echo showing reduced heart function but no D sign a-line placed by Dr Schwarz in right radial again went into PEA arrest bedside echo showed large pericadial effusion which i suspect is new as a result of CPR or massive PE Dr Schwarz drained pericardial fluid Echo showed fluid removed however code eventually stopped patient pronounces Dr Schwarz notifed See Code Note for details on meds during ACLS and their timings 02/16/18 18:58
--- NOTE | 2018-02-16 20:38 | VASCULAR ---
Date of service: 02/16/2018 PROCEDURE: 1. Right upper extremity venogram 2. Superior vena cavagram 3. Superior vena cava venous angioplasty HISTORY: History lung CA. 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 SVC occlusion. Recent left subclavian portacath removed. Needs venous angioplasty and possible stent COMPARISON: TECHNIQUE: The relative risks and indications for the procedure and possible complications were explained to the patient and consent obtained. The patient was placed supine on the arteriogram table and the right arm prepped and draped usual sterile fashion. Conscious sedation monitoring were provided throughout the procedure by a nurse. Under ultrasound guidance, the right brachial vein was punctured with a micropuncture set. Exchange is made for a 5 Mexican sheath. A 5 Mexican Berenstein catheter was placed in the right upper extremity and a central venogram performed. The catheter was advanced centrally and an SVC venogram performed. The SVC occlusion was crossed rather easily with an angled glidewire and 5 Mexican catheter. The catheter was advanced into the IVC and exchange was made for a 0.035 support guidewire. A 10 Mexican 25 cm sheath was placed at the puncture site. The SVC obstruction was dilated with a 16 and 18 mm x 4 cm angioplasty balloon. After venous dilatation and before stent placement, the patient became hypoxic, hypotensive, and bradycardic. The presumed diagnosis was a pulmonary embolus. A code was immediately called. Resuscitation was initiated. The patient was eventually intubated. During the code the patient received heparin and IV tPA. Ultrasound revealed an enlarging pericardial effusion. Pericardiocentesis was performed with a 10 Mexican pigtail catheter. Blood was obtained. The patient was not successfully resuscitated. FINDINGS: There is an occlusion at the innominate confluence and SVC. A small amount of thrombus is noted within the right innominate vein. Collateral vessels are present. IMPRESSION: 1. SVC occlusion. 2. SVC venous dilatation. 3. Cardiorespiratory collapse presumably related to pulmonary embolus. Despite resuscitation efforts including heparin/tPA and pericardiocentesis, the patient was not successfullly resuscitated.
--- NOTE | 2018-02-17 07:20 | CP.PCM.DIS ---
<Michelle Gallagher - Last Filed: 02/17/18 15:43> Provider - Provider Date of Admission: 02/13/18 13:07 Attending physician: Dany Ambrosio MD Time Spent in preparation of Discharge (in minutes): 45 Hospital Course - Lab Results Lab Results: Micro Results 02/13/18 13:20 Blood Blood Culture - Preliminary NO GROWTH AFTER 3 DAYS 02/13/18 12:45 Blood Blood Culture - Preliminary NO GROWTH AFTER 3 DAYS Most Recent Lab Values WBC 10.0 10^3/ul (4.5-11.0) 02/14/18 06:20 RBC 3.97 10^6/uL (3.5-6.1) 02/14/18 06:20 Hgb 11.1 g/dL (12.0-16.0) L 02/14/18 06:20 Hct 34.9 % (36.0-48.0) L 02/14/18 06:20 MCV 87.9 fl (80.0-105.0) 02/14/18 06:20 MCH 28.0 pg (25.0-35.0) 02/14/18 06:20 MCHC 31.8 g/dl (31.0-37.0) 02/14/18 06:20 RDW 16.2 % (11.5-14.5) H 02/14/18 06:20 Plt Count 276 10^3/uL (120.0-450.0) 02/14/18 06:20 MPV 8.9 fl (7.0-11.0) 02/14/18 06:20 Gran % 87.8 % (50.0-68.0) H 02/14/18 06:20 Lymph % (Auto) 9.5 % (22.0-35.0) L 02/14/18 06:20 [place] % (Auto) 2.7 % (1.0-6.0) 02/14/18 06:20 Eos % (Auto) 0.0 % (1.5-5.0) L 02/14/18 06:20 Baso % (Auto) 0.0 % (0.0-3.0) 02/14/18 06:20 Gran # 8.78 (1.4-6.5) H 02/14/18 06:20 Lymph # (Auto) 1.0 (1.2-3.4) L 02/14/18 06:20 [place] # (Auto) 0.3 (0.1-0.6) 02/14/18 06:20 Eos # (Auto) 0.0 (0.0-0.7) 02/14/18 06:20 Baso # (Auto) 0.00 K/mm3 (0.0-2.0) 02/14/18 06:20 PT 12.9 SECONDS (9.4-12.5) H 02/14/18 06:20 INR 1.12 02/14/18 06:20 APTT 25.8 Seconds (25.1-36.5) 02/14/18 06:20 pO2 39 mm/Hg (30-55) 02/13/18 12:45 VBG pH 7.37 (7.32-7.43) 02/13/18 12:45 VBG pCO2 60.0 (40-60) 02/13/18 12:45 VBG HCO3 34.7 mmol/l (21-28) H 02/13/18 12:45 VBG Total CO2 36.5 mmol.L (22-28) H 02/13/18 12:45 VBG O2 Sat (Calc) 75.4 % (40-65) H 02/13/18 12:45 VBG Base Excess 7.4 mmol/L (0.0-2.0) H 02/13/18 12:45 VBG Potassium 3.8 mmol/L (3.6-5.2) 02/13/18 12:45 Sodium 138.0 mmol/L (132-148) 02/13/18 12:45 Chloride 102.0 mmol/L (98-107) 02/13/18 12:45 Glucose 99 mg/dl (65-105) 02/13/18 12:45 Lactate 1.6 mmol/L (0.7-2.1) 02/13/18 12:45 FiO2 21.0 % 02/13/18 12:45 Sodium 136 mmol/L (132-148) 02/14/18 06:20 Potassium 4.9 mmol/L (3.6-5.0) 02/14/18 06:20 Chloride 99 mmol/L (98-107) 02/14/18 06:20 Carbon Dioxide 32 mmol/L (21-33) 02/14/18 06:20 Anion Gap 10 (10-20) 02/14/18 06:20 BUN 11 mg/dL (7-21) 02/14/18 06:20 Creatinine 1.0 mg/dl (0.7-1.2) 02/14/18 06:20 Est GFR ( Amer) > 60 02/14/18 06:20 Est GFR (Non-Af Amer) 58 02/14/18 06:20 Random Glucose 148 mg/dL (70-110) H 02/14/18 06:20 Calcium 9.2 mg/dL (8.4-10.5) 02/14/18 06:20 Magnesium 2.1 mg/dL (1.7-2.2) 02/13/18 12:45 Total Bilirubin 0.4 mg/dL (0.2-1.3) 02/14/18 06:20 AST 29 U/L (14-36) 02/14/18 06:20 ALT 54 U/L (7-56) 02/14/18 06:20 Alkaline Phosphatase 69 U/L (38-126) 02/14/18 06:20 Troponin I < 0.01 ng/mL 02/13/18 12:45 NT-Pro-B Natriuret Pep 54.6 pg/mL (0-450) 02/13/18 12:45 Total Protein 6.0 g/dL (5.8-8.3) 02/14/18 06:20 Albumin 3.5 g/dL (3.0-4.8) 02/14/18 06:20 Globulin 2.5 gm/dL 02/14/18 06:20 Albumin/Globulin Ratio 1.4 (1.1-1.8) 02/14/18 06:20 TSH 3rd Generation 3.57 mIU/mL (0.46-4.68) 02/13/18 12:45 Venous Blood Potassium 3.8 mmol/L (3.6-5.2) 02/13/18 12:45 Urine Opiates Screen Positive (NEGATIVE) H 02/13/18 14:30 Urine Methadone Screen Negative (NEGATIVE) 02/13/18 14:30 Ur Barbiturates Screen Negative (NEGATIVE) 02/13/18 14:30 Ur Phencyclidine Scrn Negative (NEGATIVE) 02/13/18 14:30 Ur Amphetamines Screen Negative (NEGATIVE) 02/13/18 14:30 U Benzodiazepines Scrn Negative (NEGATIVE) 02/13/18 14:30 U Oth Cocaine Metabols Positive (NEGATIVE) H 02/13/18 14:30 U Cannabinoids Screen Negative (NEGATIVE) 02/13/18 14:30 - Hospital Course Hospital Course: Upon Admission: 52 y/o female with PMHx of COPD, history of four pulmonary emboli over the past six months (currently on xarelto, s/p right IVC filter placement ~3 months ago), lung cancer (chemotherapy in 2015, after her right upper lobectomy, finished radiation therapy last year and is in remission for the past year), osteoarthritis, schizoaffective disorder who presented to the ED with complains of diffuse neck swelling, R arm swelling/pain, R breast swelling and pain that she has been experiencing for the past 1 week. She describes it as a constant, 10/10 pain with alleviation from morphine, worsened with movement and palpation. She has noticed no improvement since last admission. She reports that she completed the antibiotics she was given upon discharge. She denies numbness or tingling to the R arm. She also reports chronic shortness of breath alleviated with the inhalers she has. She denies recent surgery, long flights or immobilization. She denies history of control. S Patient is unsure of when her last mammogram was. Hospital Course: Pt was treated with duoneb, solumedrol, levofloxacin and o2 for COPD exacerbati on. Pt had underwent an ultrasound of the RUE showing an "acute occlusive hypoechoic thrombus in the R IJ vein. Monophasic flow noted in the R subclavian and L internal jugular and L subclavian veins. This raises the possibility of central occlusive disease. A CT scan of the chest with IV contrast can be performed if clinically indicated." She had underwent removal of the L subclavian port-a-cath for treatment of SVC syndrome on 02/14/18. She also had PICC access placed in the L arm. She was treated with therapeutic lovenox treatment for her DVT. She was scheduled for RUE venogram, superior vena cavagram & superior vena cava venous angioplasty. The relatives risks and indications for the procedure and possible complications were explained to the patient and consent obtained. During the procedure, the patient became hypoxic, hypotensive, and bradycardic. The presumed diagnosis was a pulmonary embolus. A code blue was immediately called in the vascular lab. CPR initiated immediately. IV epi x 1. Bicarb x 1 were given. ROSC achieved after 1 round. A second code blue was subsequently called. CPR was initiated immediately. Arterial line placed. TPA was administered. IV epi given every 3-5 minutes for 4 rounds. Bicarb x 3. ROSC achieved after 4 rounds. A third code blue was called, CPR was initiated immediately. Epi given every 3-5 minutes. Levophed started. IV epi given every 3-5 minutes for 4 rounds. Atropine x 2. Bicarb x 1. Cardiac U/S revealed pericardial effusion. IR performed pericardiocentesis. Pulses were not felt despite ACLS protocol. No Response Verbal/Painful Stimuli, Absent Peripheral Pulses{Carotid & Femoral}, Absent Heart & Breath Sounds, Pupils Fixed & Dilated, Absence of Vital Signs. Patient pronounced at approximately 5:33pm. Pts family was notified when the code blue had began, and given updates throughout the process. Pts family informed of patients expiration. PMD aware. EDRS report was initiated by second vp hr assessment physicians. Discharge Exam - Additional Findings Additional findings: Pt 1733 on. No Response Verbal/Painful Stimuli, Absent Peripheral Pulses{Carotid & Femoral}, Absent Heart & Breath Sounds, Pupils Fixed & Dilated, Absence of Vital Signs. Please see pronouncement of note Discharge Plan - Follow Up Plan Condition: GOOD Disposition: WITH WITHOUT AUTOPSY <Dany Ambrosio - Last Filed: 02/18/18 10:30> Provider - Provider Date of Admission: 02/13/18 13:07 Attending physician: Dany Ambrosio MD Hospital Course - Lab Results Lab Results: Micro Results 02/13/18 13:20 Blood Blood Culture - Preliminary NO GROWTH AFTER 4 DAYS 02/13/18 12:45 Blood Blood Culture - Preliminary NO GROWTH AFTER 4 DAYS Most Recent Lab Values WBC 10.0 10^3/ul (4.5-11.0) 02/14/18 06:20 RBC 3.97 10^6/uL (3.5-6.1) 02/14/18 06:20 Hgb 11.1 g/dL (12.0-16.0) L 02/14/18 06:20 Hct 34.9 % (36.0-48.0) L 02/14/18 06:20 MCV 87.9 fl (80.0-105.0) 02/14/18 06:20 MCH 28.0 pg (25.0-35.0) 02/14/18 06:20 MCHC 31.8 g/dl (31.0-37.0) 02/14/18 06:20 RDW 16.2 % (11.5-14.5) H 02/14/18 06:20 Plt Count 276 10^3/uL (120.0-450.0) 02/14/18 06:20 MPV 8.9 fl (7.0-11.0) 02/14/18 06:20 Gran % 87.8 % (50.0-68.0) H 02/14/18 06:20 Lymph % (Auto) 9.5 % (22.0-35.0) L 02/14/18 06:20 [place] % (Auto) 2.7 % (1.0-6.0) 02/14/18 06:20 Eos % (Auto) 0.0 % (1.5-5.0) L 02/14/18 06:20 Baso % (Auto) 0.0 % (0.0-3.0) 02/14/18 06:20 Gran # 8.78 (1.4-6.5) H 02/14/18 06:20 Lymph # (Auto) 1.0 (1.2-3.4) L 02/14/18 06:20 [place] # (Auto) 0.3 (0.1-0.6) 02/14/18 06:20 Eos # (Auto) 0.0 (0.0-0.7) 02/14/18 06:20 Baso # (Auto) 0.00 K/mm3 (0.0-2.0) 02/14/18 06:20 PT 12.9 SECONDS (9.4-12.5) H 02/14/18 06:20 INR 1.12 02/14/18 06:20 APTT 25.8 Seconds (25.1-36.5) 02/14/18 06:20 pO2 39 mm/Hg (30-55) 02/13/18 12:45 VBG pH 7.37 (7.32-7.43) 02/13/18 12:45 VBG pCO2 60.0 (40-60) 02/13/18 12:45 VBG HCO3 34.7 mmol/l (21-28) H 02/13/18 12:45 VBG Total CO2 36.5 mmol.L (22-28) H 02/13/18 12:45 VBG O2 Sat (Calc) 75.4 % (40-65) H 02/13/18 12:45 VBG Base Excess 7.4 mmol/L (0.0-2.0) H 02/13/18 12:45 VBG Potassium 3.8 mmol/L (3.6-5.2) 02/13/18 12:45 Sodium 138.0 mmol/L (132-148) 02/13/18 12:45 Chloride 102.0 mmol/L (98-107) 02/13/18 12:45 Glucose 99 mg/dl (65-105) 02/13/18 12:45 Lactate 1.6 mmol/L (0.7-2.1) 02/13/18 12:45 FiO2 21.0 % 02/13/18 12:45 Sodium 136 mmol/L (132-148) 02/14/18 06:20 Potassium 4.9 mmol/L (3.6-5.0) 02/14/18 06:20 Chloride 99 mmol/L (98-107) 02/14/18 06:20 Carbon Dioxide 32 mmol/L (21-33) 02/14/18 06:20 Anion Gap 10 (10-20) 02/14/18 06:20 BUN 11 mg/dL (7-21) 02/14/18 06:20 Creatinine 1.0 mg/dl (0.7-1.2) 02/14/18 06:20 Est GFR ( Amer) > 60 02/14/18 06:20 Est GFR (Non-Af Amer) 58 02/14/18 06:20 Random Glucose 148 mg/dL (70-110) H 02/14/18 06:20 Calcium 9.2 mg/dL (8.4-10.5) 02/14/18 06:20 Magnesium 2.1 mg/dL (1.7-2.2) 02/13/18 12:45 Total Bilirubin 0.4 mg/dL (0.2-1.3) 02/14/18 06:20 AST 29 U/L (14-36) 02/14/18 06:20 ALT 54 U/L (7-56) 02/14/18 06:20 Alkaline Phosphatase 69 U/L (38-126) 02/14/18 06:20 Troponin I < 0.01 ng/mL 02/13/18 12:45 NT-Pro-B Natriuret Pep 54.6 pg/mL (0-450) 02/13/18 12:45 Total Protein 6.0 g/dL (5.8-8.3) 02/14/18 06:20 Albumin 3.5 g/dL (3.0-4.8) 02/14/18 06:20 Globulin 2.5 gm/dL 02/14/18 06:20 Albumin/Globulin Ratio 1.4 (1.1-1.8) 02/14/18 06:20 TSH 3rd Generation 3.57 mIU/mL (0.46-4.68) 02/13/18 12:45 Venous Blood Potassium 3.8 mmol/L (3.6-5.2) 02/13/18 12:45 Urine Opiates Screen Positive (NEGATIVE) H 02/13/18 14:30 Urine Methadone Screen Negative (NEGATIVE) 02/13/18 14:30 Ur Barbiturates Screen Negative (NEGATIVE) 02/13/18 14:30 Ur Phencyclidine Scrn Negative (NEGATIVE) 02/13/18 14:30 Ur Amphetamines Screen Negative (NEGATIVE) 02/13/18 14:30 U Benzodiazepines Scrn Negative (NEGATIVE) 02/13/18 14:30 U Oth Cocaine Metabols Positive (NEGATIVE) H 02/13/18 14:30 U Cannabinoids Screen Negative (NEGATIVE) 02/13/18 14:30 Attending/Attestation - Attestation I have personally seen and examined this patient.: Yes I have fully participated in the care of the patient.: Yes I have reviewed all pertinent clinical information, including history, physical exam and plan: Yes Notes (Text): 02/18/18 10:25 attending note; Patient seen and examined with resident in the morning. Sitting in the chair. Denies any shortness of breath. Cough is improved. Tolerating diet well. Patient is alert and awake. status post Port-A-Cath removal in theLeft chest area. No bleeding noted. Left upper arm PICC line placed. Dressing intact. Waiting for venogram later today. Patient is a 52 -year-old female with PMHx of COPD, history pulmonary emboli over the past six months (currently on xarelto, s/p right IVC filter placement ~3 months ago), lung cancer (chemotherapy in 2014, after her right upper lobectomy, finished radiation therapy last year and is in remission for the past year), osteoarthritis, schizoaffective disorder, active smoking, chronic opiate dependency is admitted for bilateral upper extremity and chest swelling. SVC syndrome. with a right IJ thrombus. s/p Port-A-Cath removal. s/p left PICC line placement. Acute COPD exacerbation; continue oxygen, DuoNeb and IV Solumedrol. improving slowly. active smoking; smoking cessation is strongly advised. History of lung cancer and right lobectomy. schizoaffective disorder; continue risperidone and Depakote. Chronic opiate dependency; patient recently filled prescption with Dr. Ponce. Continue oxycodone. history of PE; started on subcutaneous Lovenox. Plan for venogram. Addendum; Responded to HEATHER KIMBLE at vascular lab. Patient is getting venogram done. During the procedure patient lost pulse. Secondary to pulmonary embolus. HEATHER KIMBLE called. CPR started. Epinephrine given. Patient was intubated. Patient briefly regained pulse and lost it again. CPR continued. IV TPA given. CPR continued. A line placed for BP measurement. Patient also found to have pericardial effusion. Drained. CPR continued. Unsuccessful attempt with prolonged resuscitation. Pronounced at 5:33 pm. Patient's informed. Case discussed with medical records analyst's office. Body released. Family informed. certificate completed. 02/18/18 10:30
== END 2018-02-16 17:33 | DRG 550 ==
LOC: ED 10:32 → ERH 13:07 → 5RNO 16:34
PROVIDERS: ADMIT Internal Medicine; ATTEND Internal Medicine
PROC: 0BH17EZ Insertion of Endotracheal Airway into Trachea, Via Natural or Artificial Opening (ICD-10-PCS; principal; 2018-02-16)
PROC: 03HY32Z Insertion of Monitoring Device into Upper Artery, Percutaneous Approach (ICD-10-PCS; 2018-02-16)
PROC: 3E03317 Introduction of Other Thrombolytic into Peripheral Vein, Percutaneous Approach (ICD-10-PCS; 2018-02-16)
PROC: 5A12012 Performance of Cardiac Output, Single, Manual (ICD-10-PCS; 2018-02-16)
PROC: 0W9D3ZZ Drainage of Pericardial Cavity, Percutaneous Approach (ICD-10-PCS; 2018-02-16)
DX: I82.C11 Acute embolism and thrombosis of right internal jugular vein (principal); I26.99 Other pulmonary embolism without acute cor pulmonale; J44.1 Chronic obstructive pulmonary disease with (acute) exacerbation; F14.90 Cocaine use, unspecified, uncomplicated; F25.9 Schizoaffective disorder, unspecified; I46.9 Cardiac arrest, cause unspecified; L03.90 Cellulitis, unspecified; R09.02 Hypoxemia; R57.0 Cardiogenic shock; F11.20 Opioid dependence, uncomplicated; Z86.711 Personal history of pulmonary embolism; F17.200 Nicotine dependence, unspecified, uncomplicated; F31.9 Bipolar disorder, unspecified; I10 Essential (primary) hypertension; I31.3 Pericardial effusion (noninflammatory); I87.1 Compression of vein; Z85.118 Personal history of other malignant neoplasm of bronchus and lung; Z85.3 Personal history of malignant neoplasm of breast; Z87.01 Personal history of pneumonia (recurrent); Z87.440 Personal history of urinary (tract) infections; Z82.49 Family history of ischemic heart disease and other diseases of the circulatory system; Z92.21 Personal history of antineoplastic chemotherapy; Z80.3 Family history of malignant neoplasm of breast; Z80.1 Family history of malignant neoplasm of trachea, bronchus and lung; Z92.3 Personal history of irradiation; Z79.01 Long term (current) use of anticoagulants; N63.0 Unspecified lump in unspecified breast; Z98.51 Tubal ligation status; Z88.6 Allergy status to analgesic agent; Z88.0 Allergy status to penicillin; Z87.892 Personal history of anaphylaxis